=== PATIENT | male | born 1950 | race Caucasian/White ===

== ENCOUNTER 2018-11-03 05:11 | Inpatient (IN) | payer MEDICARE ==
[~2018-11-03] VITALS: Ht 190.5 cm; Wt 101.1 kg
[2018-11-03 05:31] LABS: BASOPHILS ABSOLUTE AUTO 0.09 K/mm3 (0.00-0.23); BASOPHILS PERCENT AUTO 1 % (0-2); EOSINOPHILS ABSOLUTE AUTO 0.29 K/mm3 (0.00-0.68); EOSINOPHILS PERCENT AUTO 3 % (0-6); Hematocrit 48.1 % (37.0-53.0); Hemoglobin 15.3 g/dL (13.5-17.5); IMMATURE GRAN ABSOLUTE AUTO 0.05 K/mm3 (0.00-0.10); IMMATURE GRAN PERCENT AUTO 0 % (0-1); LYMPHOCYTES ABSOLUTE AUTO 2.23 K/mm3 (0.84-5.20); LYMPHOCYTES PERCENT AUTO 20 % (21-46); MONOCYTES ABSOLUTE AUTO 1.36 K/mm3 (0.16-1.47); MONOCYTES PERCENT AUTO 12 % (4-13); Mean Corpuscular HGB Conc 31.8 g/dL (31.5-36.5); Mean Corpuscular Volume 79 fL (80-100); Mean Platelet Volume 10.2 fL (9.1-12.4); NEUTROPHILS ABSOLUTE AUTO 7.35 K/mm3 (1.96-9.15); NEUTROPHILS PERCENT AUTO 65 % (41-73); Platelet Count 226 K/mm3 (150-400); RDW Coefficient Variation 18.9 % (11.7-14.2); RDW Standard Deviation 51.4 fL (35.1-46.3); Red Blood Cell Count 6.11 M/mm3 (4.30-5.90); White Blood Cell Count 11.37 K/mm3 (4.00-11.30)
[2018-11-03 05:49] LABS: Alanine Aminotransfer (ALT/SGP 26 U/L (12-78); Albumin, Blood 3.4 g/dL (3.4-5.0); Albumin/Globulin Ratio 0.9 (0.8-1.8); Alk Phos 72 U/L (50-136); Anion Gap 7 mmol/L (6-16); Aspartate Aminotrans (AST/SGOT 29 U/L (12-37); Bilirubin, Total 1.4 mg/dL (0.1-1.0); Blood Urea Nitrogen 14 mg/dL (8-24); Bun/Creatinine Ratio 13.3 (12.0-20.0); CO2, Blood 25 mmol/L (21-32); Calcium, Blood 8.5 mg/dL (8.5-10.1); Chloride, Blood 109 mmol/L (98-108); Creatinine, Blood 1.05 mg/dL (0.60-1.20); Ethanol (Alcohol), Blood, Med <3 mg/dL; Globulin, Blood 3.9 g/dL (2.2-4.0); Glomerular Filtration Rate >60 (60-); Glucose, Blood 123 mg/dL (70-99); Potassium, Blood 3.9 mmol/L (3.5-5.5); Sodium, Blood 141 mmol/L (136-145); Total Protein, Blood 7.3 g/dL (6.4-8.2)
[2018-11-03 05:56] LABS: International Normalized Ratio 1.15
[2018-11-03 09:11] LABS: Source, Urine Clean Catch
[2018-11-03 09:19] LABS: Appearance, Urine Clear (Clear); Bilirubin, Urine Neg (Neg); Blood, Urine 2+ (Neg); Color, Urine Yellow (P-Yellow); Glucose Qualitative, Urine Neg (Neg); Ketones, Urine Neg (Neg); Leukocyte Esterase, Urine Neg (Neg); Nitrite, Urine Neg (Neg); Protein, Urine Neg (Neg); Urobilinogen, Urine NORM (Normal)
[2018-11-03 09:42] LABS: Salicylate <1.7 mg/dL (2.8-20.0); Troponin I 0.046 ng/mL (0.000-0.040)
[2018-11-03 09:45] LABS: U Amphetamine Screen Not Detected; U Barbituate Screen Not Detected; U Benzodiazapine Screen Not Detected; U Buprenorphine Screen Not Detected; U Cannabinoids Screen DETECTED; U Cocaine Screen Not Detected; U Methadone Screen Not Detected; U Methamphetamine Screen DETECTED; U Opiates Screen Not Detected; U Oxycodone Screen Not Detected; U Phencyclidine Screen Not Detected; U Propoxyphene Screen Not Detected
[2018-11-03 09:46] LABS: Thyroid Stimulating Hormone 0.766 uIU/mL (0.360-4.800)
[2018-11-03 09:49] LABS: Acetaminophen, Random <2.0 ug/mL (10.0-30.0)
[2018-11-03 10:11] LABS: White Blood Cells, Urine 0-2 /hpf (0-5)
[2018-11-03 10:12] LABS: Bacteria Rare /hpf; Mucus Mod (0-Heavy); Squamous Epithelial Cells Rare /hpf (Few)
[2018-11-03] MEDS ORDERED: ELIQUIS5 MG PO (10:30)
[2018-11-03] MEDS ORDERED: Lisinopril2.5 MG PO (10:30)
--- NOTE | 2018-11-03 10:58 | NUR ---
Echocardiogram performed using 0.50ml of Definity contrast.
--- NOTE | 2018-11-03 13:26 | NUR ---
1015 PT RECEIVED FROM ER. ALERT TO SELF AND PLACE, FOLLOWING COMMANDS AFTER REPETITIVE REQUESTS. PUPILS PERRLA. BILATERAL EQUAL ARTIST SUSPECT, NO DRIFT NOTED. BILATERAL LEG WEAKNESS NOTED, NO DEFICIT NOTED, NO DRIFT NOTED. NO FACIAL DROOP NOTED. PT APHASIC, HAVING DIFFICULTY FINDING WORDS. ANSWERING MOST YES / NO QUESTIONS CLEARLY, BUT BECOMES CONFUSED AT TIMES. AFIB ON TELEMETRY RATE 120-140s WITH ACTIVITY, RATE 80s-110s AT REST. LUNG SOUNDS DIMINISHED THROUGHOUT, DYSPNEA WITH ACTIVITY. EMOTIONS ARE VERY LABILE, CALM AND COOPERATIVE THEN BECOMES TEARFUL THEN BEGINS TO LAUGH. PT PIVOTED TO BEDSIDE COMMODE WITH 1 PERSON ASSIST. VOIDING IN URINAL. PT REPOSITIONING HIMSELF IN BED. BED ALARM ON, WILL CONTINUE TO MONITOR.
--- NOTE | 2018-11-03 14:25 | NUR ---
PT RESTING ON SIDE IN BED. EXTREMITIES SHAKING, GASPING FOR BREATH AT TIMES. PT NOT RESPONDING TO VERBAL STIMULI. VSS. PT MORE CLEAR AND NO MORE SHAKING NOTED. ATIVAN GIVEN IV. PT RESTING QUIETLY IN BED. DR. SINGER AT BEDSIDE, ORDER FOR BILL GTT RECEIVED.
--- NOTE | 2018-11-03 15:39 | NUR ---
RECEIVED REPORT AND ASSUMED CARE OF PATIENT. HE IS LYING IN BED AT THIS TIME, VERY SOMULENT AND LABILE. IV ON RIGHT HAND HAD RED LINE AND TENDERNESS ON ASSESSMENT. S/L LINE AND SWITCHED CARDIZEM AND NS TO LEFT AC SITE. WILL REASSESS LINE ON RT HAND LATER IN SHIFT TO DETERMINE IF IT SHOULD BE DISCONTINUED. WILL CONTINUE TO MONITOR CLOSELY AND FOLLOW ORDERS. CALL LIGHT WITHIN IN REACH, BED LOCKED, ARMED, AND LOW, HOB ELEVATED TO 30 DEGREES.
[2018-11-03 16:45] LABS: BASOPHILS PERCENT AUTO 1 % (0-2); EOSINOPHILS ABSOLUTE AUTO 0.28 K/mm3 (0.00-0.68); EOSINOPHILS PERCENT AUTO 2 % (0-6); Hematocrit 49.4 % (37.0-53.0); Hemoglobin 15.4 g/dL (13.5-17.5); IMMATURE GRAN ABSOLUTE AUTO 0.04 K/mm3 (0.00-0.10); IMMATURE GRAN PERCENT AUTO 0 % (0-1); LYMPHOCYTES ABSOLUTE AUTO 1.93 K/mm3 (0.84-5.20); LYMPHOCYTES PERCENT AUTO 16 % (21-46); MONOCYTES PERCENT AUTO 13 % (4-13); Mean Corpuscular HGB 24.7 pg (26.0-34.0); Mean Corpuscular HGB Conc 31.2 g/dL (31.5-36.5); Mean Corpuscular Volume 79 fL (80-100); Mean Platelet Volume 9.3 fL (9.1-12.4); NEUTROPHILS ABSOLUTE AUTO 8.01 K/mm3 (1.96-9.15); NEUTROPHILS PERCENT AUTO 68 % (41-73); Platelet Count 217 K/mm3 (150-400); RDW Coefficient Variation 19.3 % (11.7-14.2); RDW Standard Deviation 51.8 fL (35.1-46.3); Red Blood Cell Count 6.24 M/mm3 (4.30-5.90); White Blood Cell Count 11.86 K/mm3 (4.00-11.30)
--- NOTE | 2018-11-03 17:04 | NUR ---
EVENT: 1620 BED ALARM SOUNDED, THIS RN RAN INTO ROOM TO SEE PATIENT CLIMBING OUT OF BED BETWEEN THE UPPER AND LOWER BEDRAILS. PT STOOD, THIS RN ARRIVED TO PT SIDE HE WAS WOBBLING, HELD UP AND PULLED NEARBY CHAIR TO SIT PATIENT INTO. ASSESSED RESPONSIVENESS, PT IS UNABLE TO MEANINGFULLY RESPOND AT THIS TIME. VS TAKEN AND SENT THROUGH CAPSULE, PT HAD SOME EMESIS AT THIS TIME. DR. SINGER CALLED TO BEDSIDE, HE ORDERED STAT BLOODWORK ENTERED BY ENGLISH DRAWER CHAVO. ADDITIONALLY DEDE ORDERED FOR PT SAFETY, USED RON LIFT TO GET PATIENT SAFELY BACK TO BED, REASSESSED VS AND PT HAS SLIGHT TEMP, APPLIED COOL CLOTH AND WILL CONTINUE TO MONITOR.
--- NOTE | 2018-11-03 17:08 | NUR ---
CALLED [facility] [employer] PER PT NOD OF APPROVAL TO CONTACT THEM FOR INFORMATION FOR MRI QUESTIONNAIRE. FILLED OUT AND FAXED MRI SCREENING FORM.
[2018-11-03 17:12] LABS: Alanine Aminotransfer (ALT/SGP 27 U/L (12-78); Albumin, Blood 3.6 g/dL (3.4-5.0); Albumin/Globulin Ratio 0.9 (0.8-1.8); Alk Phos 76 U/L (50-136); Anion Gap 3 mmol/L (6-16); Aspartate Aminotrans (AST/SGOT 25 U/L (12-37); Bilirubin, Total 1.8 mg/dL (0.1-1.0); Blood Urea Nitrogen 11 mg/dL (8-24); Bun/Creatinine Ratio 11.3 (12.0-20.0); CO2, Blood 27 mmol/L (21-32); Calcium, Blood 8.8 mg/dL (8.5-10.1); Chloride, Blood 108 mmol/L (98-108); Creatinine, Blood 0.97 mg/dL (0.60-1.20); Globulin, Blood 3.9 g/dL (2.2-4.0); Glomerular Filtration Rate >60 (60-); Glucose, Blood 104 mg/dL (70-99); Potassium, Blood 3.6 mmol/L (3.5-5.5); Sodium, Blood 138 mmol/L (136-145); Total Protein, Blood 7.5 g/dL (6.4-8.2)
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
--- NOTE | 2018-11-03 23:55 | NUR ---
AGRESSIVE BEHAVIOR PATIENT BECAME AGRESSIVE WHILE STAFF WERE TRYING TO CHANGE HIM. THIS RN, STUDENT NURSE SANDRITA, VERONIQUE MCFADDEN AND RUBINA ZAMBRANO RN IN ROOM. AT APPROX 2320 PATIENT BECOME VERY COMBATIVE AND REACHED OUT AND GRABBED STAFF WITH INTENT TO HARM THEM. PATIENT HIT THE SIDE RAIL WITH IS LEFT FIST IN ATTEMPT TO SWING AT STAFF. PATIENT PULLED AND SNAPPED IV TUBING. PATIENT REFUSED VS AND CARE DURING THIS TIME. SCOT CANO CALLED; WITH SECURITY PRESENT THIS RN AND PRIMARY RN WERE ABLE TO OBTAIN VS AND ADMINISTER MEDICATIONS PER EMAR. PATIENT CONTINUED TO REFUSE TO BE CHANGED (URINE NOTED IN BEDDING). WILL ADDRESS PATIENT SKIN CARE AND HYGIENE NEEDS FURTHER WHEN PATIENT CALMS. PRIMARY RN TO NOTIFY MD. NURSING CALCINER OPERATOR HELPER NOTIFIED. PATIENT REMAINS IN POSTEY VEST T/O INTERACTION. WILL CONTINUE TO MONITOR.
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
[2018-11-04 05:42] LABS: BASOPHILS ABSOLUTE AUTO 0.06 K/mm3 (0.00-0.23); BASOPHILS PERCENT AUTO 1 % (0-2); EOSINOPHILS ABSOLUTE AUTO 0.21 K/mm3 (0.00-0.68); EOSINOPHILS PERCENT AUTO 2 % (0-6); Hematocrit 44.8 % (37.0-53.0); Hemoglobin 14.1 g/dL (13.5-17.5); IMMATURE GRAN ABSOLUTE AUTO 0.06 K/mm3 (0.00-0.10); IMMATURE GRAN PERCENT AUTO 1 % (0-1); LYMPHOCYTES PERCENT AUTO 12 % (21-46); MONOCYTES ABSOLUTE AUTO 1.71 K/mm3 (0.16-1.47); MONOCYTES PERCENT AUTO 15 % (4-13); Mean Corpuscular HGB 24.9 pg (26.0-34.0); Mean Corpuscular HGB Conc 31.5 g/dL (31.5-36.5); Mean Corpuscular Volume 79 fL (80-100); Mean Platelet Volume 9.8 fL (9.1-12.4); NEUTROPHILS ABSOLUTE AUTO 8.32 K/mm3 (1.96-9.15); NEUTROPHILS PERCENT AUTO 71 % (41-73); Platelet Count 217 K/mm3 (150-400); RDW Coefficient Variation 18.6 % (11.7-14.2); RDW Standard Deviation 51.9 fL (35.1-46.3); Red Blood Cell Count 5.66 M/mm3 (4.30-5.90); White Blood Cell Count 11.76 K/mm3 (4.00-11.30)
[2018-11-04 06:01] LABS: Alanine Aminotransfer (ALT/SGP 20 U/L (12-78); Albumin, Blood 3.2 g/dL (3.4-5.0); Albumin/Globulin Ratio 0.9 (0.8-1.8); Alk Phos 71 U/L (50-136); Anion Gap 7 mmol/L (6-16); Aspartate Aminotrans (AST/SGOT 21 U/L (12-37); Bilirubin, Total 1.9 mg/dL (0.1-1.0); Blood Urea Nitrogen 10 mg/dL (8-24); Bun/Creatinine Ratio 10.6 (12.0-20.0); CHOL/HDL RATIO 3.5; CO2, Blood 26 mmol/L (21-32); Calcium, Blood 8.3 mg/dL (8.5-10.1); Chloride, Blood 108 mmol/L (98-108); Cholesterol 98 mg/dL (50-200); Creatinine, Blood 0.95 mg/dL (0.60-1.20); Globulin, Blood 3.5 g/dL (2.2-4.0); Glomerular Filtration Rate >60 (60-); Glucose, Blood 101 mg/dL (70-99); HDL Cholesterol 28 mg/dL (>39); LDL/HDL RATIO 1.9; Low Density Lipoprotein Chol 53 mg/dL (0-110); Potassium, Blood 3.6 mmol/L (3.5-5.5); Sodium, Blood 141 mmol/L (136-145); Total Protein, Blood 6.7 g/dL (6.4-8.2); Triglycerides 86 mg/dL (30-160); Very Low Density Lipoprot Chol 17 mg/dL (6-32)
--- NOTE | 2018-11-04 06:12 | NUR ---
ASSUMED CARE APPROXIMATELY 1900 FROM JEANNA GAONA; PT WAS QUIET AT START OF SHIFT AND TOLERATED INTERVENTIONS WELL; REPOSITION AND CHECKED; BED ALARM ON; LINEN AND BRIEF CHANGE TOLERATED; PT GREW INCREASINGLY AGITATED; APPROXIMATELY 2300 ATTEMPTED LINEN CHANGE W/ PCU TECH; PT SAID "NO"; PT WAS ADVISED HE WAS SATURATED W/ URINE AND NEEDED CHANGED; JEANNA CESPEDES ATTEMPTED CONVERSATION W/ PT AND CHARGE NURSE WAS CALLED; PT GRABBED STAFF AND SWUNG AT STAFF; STAFF STETHOSCOPE PULLED AND ARM GRABBED; SCOT GARCIA CALLED; SECURITY AT BEDSIDE; BLOOD ON FLOOR FROM PT PULLING IV LINES; PT REFUSED CARE REMAINDER OF SHIFT; BED ALARM ON; BED IN LOWEST POSITION; CALL LIGHT WITHIN REACH; WILL CONTINUE TO MONITOR AND ASSESS UNTIL HANDOFF TO DAY SHIFT RN.
--- NOTE | 2018-11-04 10:32 | NUR ---
NURSING PCU DAYSHIFT: Assumed care of pt at approx 0700. Pt resting comfortably t/o the a.m., bonnie vest in place, tolerating well. Pt able to follow some commands, occassionally answers yes/no questions appropriately, unable to engage in conversation. Skin appears intact w/scattered bruising noted. Tele in place, afib, HTN prior to a.m. meds, no noted edema. L/S cta t/o, O2 sat stable on RA, no noted cough or dyspnea. Abd SNT, BT+, incontinent of urine. PIV x2, NS infusing at 75cc/hr and diltiazem at 5cc/hr. No s/s of acute distress at this time. Seen by PMD, new d/o received. Tech at bedside for abd U/S, ST at bedside for f/u evaluation. No acute needs identified, cont to monitor for any changes.
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
--- NOTE | 2018-11-04 18:16 | NUR ---
NURSING PCU DAYSHIFT SUMMARY: Cardiac and respiratory status changed t/o shift. Pt remains in tough cuffs w/bonnie vest in place at this time. Ativan administered as ordered, pt resting at this time. Frequent rounding required. Security standby recommended when removal of restraints are required to provide care. Cont to monitor for any changes.
[2018-11-05 04:23] LABS: BASOPHILS ABSOLUTE AUTO 0.08 K/mm3 (0.00-0.23); BASOPHILS PERCENT AUTO 1 % (0-2); EOSINOPHILS ABSOLUTE AUTO 0.35 K/mm3 (0.00-0.68); EOSINOPHILS PERCENT AUTO 3 % (0-6); Hematocrit 46.1 % (37.0-53.0); Hemoglobin 14.5 g/dL (13.5-17.5); IMMATURE GRAN ABSOLUTE AUTO 0.03 K/mm3 (0.00-0.10); IMMATURE GRAN PERCENT AUTO 0 % (0-1); LYMPHOCYTES ABSOLUTE AUTO 1.41 K/mm3 (0.84-5.20); LYMPHOCYTES PERCENT AUTO 14 % (21-46); MONOCYTES ABSOLUTE AUTO 1.65 K/mm3 (0.16-1.47); MONOCYTES PERCENT AUTO 16 % (4-13); Mean Corpuscular HGB Conc 31.5 g/dL (31.5-36.5); Mean Corpuscular Volume 79 fL (80-100); Mean Platelet Volume 9.6 fL (9.1-12.4); NEUTROPHILS ABSOLUTE AUTO 6.94 K/mm3 (1.96-9.15); NEUTROPHILS PERCENT AUTO 66 % (41-73); Platelet Count 220 K/mm3 (150-400); RDW Coefficient Variation 18.8 % (11.7-14.2); RDW Standard Deviation 52.2 fL (35.1-46.3); Red Blood Cell Count 5.81 M/mm3 (4.30-5.90); White Blood Cell Count 10.46 K/mm3 (4.00-11.30)
[2018-11-05 04:47] LABS: Alanine Aminotransfer (ALT/SGP 18 U/L (12-78); Albumin, Blood 3.1 g/dL (3.4-5.0); Albumin/Globulin Ratio 0.8 (0.8-1.8); Alk Phos 66 U/L (50-136); Anion Gap 9 mmol/L (6-16); Aspartate Aminotrans (AST/SGOT 13 U/L (12-37); Bilirubin, Total 2.1 mg/dL (0.1-1.0); Blood Urea Nitrogen 11 mg/dL (8-24); Bun/Creatinine Ratio 11.9 (12.0-20.0); CO2, Blood 25 mmol/L (21-32); Calcium, Blood 8.4 mg/dL (8.5-10.1); Chloride, Blood 107 mmol/L (98-108); Creatinine, Blood 0.93 mg/dL (0.60-1.20); Globulin, Blood 3.8 g/dL (2.2-4.0); Glomerular Filtration Rate >60 (60-); Glucose, Blood 99 mg/dL (70-99); Potassium, Blood 3.3 mmol/L (3.5-5.5); Sodium, Blood 141 mmol/L (136-145); Total Protein, Blood 6.9 g/dL (6.4-8.2)
[2018-11-05 06:10] LABS: HBSAG SCREEN Negative (Negative); HEP A AB, IGM Negative (Negative); HEP B CORE AB, IGM Negative (Negative); HEP C VIRUS AB <0.1 (0.0-0.9)
--- NOTE | 2018-11-05 07:24 | NUR ---
SHIFT SUMMARY PATIENT OCCATIONALLY WOULD NOD/SHAKE HEAD IN RESPONSE TO A YES NO QUESTIONS BUT MOST OF THE TIME PATIENT WOULD NOT ANSWER AND JUST STARE AT STAFF WHEN ASKED QUESTIONS. PATIENT WAS ABLE TO FOLLOW SOME SIMPLY INSTRUCTIONS. PATIENT DID NOT VERBALIZE MUCH TO STAFF EVEN WHEN AWAKE. PATIENT GIVEN ATIVAN X 1 FOR AGITATION. PATIENT THEN APPEARED TO BE ABLE TO FALL ASLEEP AND APPEARED TO SLEEP WELL THROUGHOUT MOST OF THE NIGHT. IV FLUIDS RUNNING PER EMAR, CARDIZEM GTT RUNNING AT 5 MLS. PATIENT'S HEART RATE IN THE 90'S-LOW 100'S PER PIN MAKER. VITAL SIGNS CHARTED. REPORT GIVEN TO ONCOMING RN.
--- NOTE | 2018-11-05 08:26 | NUR ---
NURSING PCU DAYSHIFT: Assumed care of pt at approx 0700. Follows some commands, will occassionally answer basic yes/no questions appropriately, noted expressive aphasia. Skin is fairly intact w/scattered bruising noted to UE's. Denies any pain, CNVI 0. B/L tough cuff wrist restraints in place along w/bonnie vest. Tele in place, afib w/HR 90's, HTN prior to a.m. meds, no noted edema. L/S fairly cta t/o, O2 sat stable on RA, no noted cough or dyspnea. Abd nontender, BT hypoactive, incontinent of urine. PIV x1, NS infusing at 75cc/hr w/diltiazem gtt initially infusing at 5cc/hr. Cariologist at bedside for assessment, new d/o received. Diltiazem gtt discontinued as per order. Telephone update to be provided to family. No s/s of acute distress at this time, cont to monitor for any changes.
--- NOTE | 2018-11-05 16:23 | NUR ---
NURSING PCU DAYSHIFT SUMMARY: Pt has shown mild improvement in able to express needs. When given the option of chocolate or vanilla pudding, pt was able to verbalize "vanilla" which pt was not able to do previous day. After care was provided for pt, pt was slowly able to say "thank you" before this RN left room. No significant aggression noted at this time though does remain forgetful, impulsive, and pulls at lines. Frequent restraint breaks and ROM provided w/staff assistance and observation. Seen by psych consult, no new d/o received. Transporting to imaging at this time for CT and CTA. Worked w/P.T. this afternoon. Experienced dyspnea and clutched chest after minimal exertion. HR increased to 120's, returned to 90's at rest. Telephone update provided to ex-, questions answered. No current needs identified. Call light in reach though frequent rounding required. Cont to monitor until rpt is given to NOC RN.
[2018-11-05 21:26] LABS: U Amphetamine Screen DETECTED; U Barbituate Screen Not Detected; U Benzodiazapine Screen DETECTED; U Buprenorphine Screen Not Detected; U Cannabinoids Screen DETECTED; U Cocaine Screen Not Detected; U Methadone Screen Not Detected; U Methamphetamine Screen DETECTED; U Opiates Screen Not Detected; U Phencyclidine Screen Not Detected
[2018-11-05 21:27] LABS: U Oxycodone Screen Not Detected; U Propoxyphene Screen Not Detected
[2018-11-06 04:15] LABS: BASOPHILS ABSOLUTE AUTO 0.08 K/mm3 (0.00-0.23); BASOPHILS PERCENT AUTO 1 % (0-2); EOSINOPHILS ABSOLUTE AUTO 0.47 K/mm3 (0.00-0.68); EOSINOPHILS PERCENT AUTO 4 % (0-6); Hematocrit 46.1 % (37.0-53.0); Hemoglobin 14.6 g/dL (13.5-17.5); IMMATURE GRAN ABSOLUTE AUTO 0.04 K/mm3 (0.00-0.10); IMMATURE GRAN PERCENT AUTO 0 % (0-1); LYMPHOCYTES ABSOLUTE AUTO 1.71 K/mm3 (0.84-5.20); LYMPHOCYTES PERCENT AUTO 15 % (21-46); MONOCYTES ABSOLUTE AUTO 1.61 K/mm3 (0.16-1.47); MONOCYTES PERCENT AUTO 14 % (4-13); Mean Corpuscular HGB 24.9 pg (26.0-34.0); Mean Corpuscular HGB Conc 31.7 g/dL (31.5-36.5); Mean Corpuscular Volume 79 fL (80-100); Mean Platelet Volume 9.8 fL (9.1-12.4); NEUTROPHILS ABSOLUTE AUTO 7.83 K/mm3 (1.96-9.15); NEUTROPHILS PERCENT AUTO 67 % (41-73); Platelet Count 243 K/mm3 (150-400); RDW Coefficient Variation 19.2 % (11.7-14.2); RDW Standard Deviation 52.4 fL (35.1-46.3); Red Blood Cell Count 5.86 M/mm3 (4.30-5.90); White Blood Cell Count 11.74 K/mm3 (4.00-11.30)
[2018-11-06 04:34] LABS: Alanine Aminotransfer (ALT/SGP 21 U/L (12-78); Albumin, Blood 3.1 g/dL (3.4-5.0); Albumin/Globulin Ratio 0.8 (0.8-1.8); Alk Phos 64 U/L (50-136); Anion Gap 8 mmol/L (6-16); Aspartate Aminotrans (AST/SGOT 23 U/L (12-37); Bilirubin, Total 1.6 mg/dL (0.1-1.0); Blood Urea Nitrogen 12 mg/dL (8-24); Bun/Creatinine Ratio 13.4 (12.0-20.0); CO2, Blood 25 mmol/L (21-32); Calcium, Blood 8.6 mg/dL (8.5-10.1); Chloride, Blood 108 mmol/L (98-108); Glomerular Filtration Rate >60 (60-); Glucose, Blood 97 mg/dL (70-99); Potassium, Blood 3.6 mmol/L (3.5-5.5); Sodium, Blood 141 mmol/L (136-145); Total Protein, Blood 7.1 g/dL (6.4-8.2)
--- NOTE | 2018-11-06 07:35 | NUR ---
SHIFT SUMMARY PATIENT PLEASENT THROUGHOUT MOST OF THE NIGHT, HOWEVER PATIENT DID HAVE SEVERAL EPISODES OF INCREASING ANXIETY AND AGITATION. PATIENT MEDICATED FOR THESE EPISODES WITH ATIVAN. PATIENT REMAINS IN DEDE VEST AND BILATERAL TOUGH CUFF WRIST RESTRAINTS DUE TO PATIENT BECOMING VERY AGITATED QUICKLY. PATIENT HAS HAD SEVERAL CODE GARCIA'S CALLED ON HIM AND HAS NEEDED SECURITY TO COME AND ASSIST STAFF WITH CARE FREQUENTLY. PATIENT APPEARED TO SLEEP ON AND OFF THROUGHOUT THE NIGHT. VITAL SIGNS CHARTED. REPORT GIVEN TO ONCOMING RN.
--- NOTE | 2018-11-06 08:09 | NUR ---
AM NOTE. ASSUMED CARE OF PT APROX 0700, PT IS A&Ox1, PT IS ABLE TO ANSWER SOME YES OR NO QUESTIONS, WHEN ASKED IF HE KNEW WHERE HE WAS HE SAID "[facility]." PT WAS UNABLE TO STATED HIS NAME/BIRTHDAY, DATE OR SITUATION. PT IS IN AFIB IN THE 100'S-130'S. PT IS CURRENTLY IN A DEDE VEST AND TUFF CUFFS. TELE INTACT AFIB IN THE 100'S-130'S PT'S BP 157/125. PT HAS TRACE EDEMA TO HIS BLE. L/S CLEAR T/O, PT IS ON RA WITH O2 SATS >92%. BT PRESENT AND HYPERACTIVE, ABD IS SOFT AND NONTENDER TO PALP. CALL LIGHT IN REACH, BED IS LOCKED WITH BED ALARM ON, W/DEDE VEST AND TUFF CUFFS.
--- NOTE | 2018-11-06 08:30 | NUR ---
PT UPDATE... TUFF CUFFS WERE REMOVED DUE TO PT NEEDING BED CHANGE/BED BATH. PT IS VERY CALM AND COOPERATIVE AT THIS TIME, WILL REMOVE THE CUFFS FOR NOW.
--- NOTE | 2018-11-06 17:24 | NUR ---
SHIFT SUMMARY. NO ACUTE CHANGES NOTED THIS SHIFT. PT HAS NOT BEEN IN TUFF CUFFS SINCE THE APROX 0800 TODAY. PT STILL IN DEDE VEST, PT HAS ATTEMPTED TO CLIMB OUT OF BED SEVERAL TIMES BUT HAS NOT BEEN AGGRESIVE THIS SHIFT. PT HAS SLEPT MOST OF THIS SHIFT. PT'S VS HAVE BEEN STABLE, APPEARES TO BE COMFORTABLE AND NOT IN ANY PAIN OR DISTRESS. CALL LIGHT IN REACH, BED IS LOCKED AND LOW W/BED ALARM ON AND DEDE VEST. WILL CONTINUE TO MONITOR UNTIL REPORT IS GIVEN TO ONCOMING RN.
--- NOTE | 2018-11-06 20:07 | NUR ---
CARE ASSUMPTION PT ALERT, MAKES EYE CONTACT, BUT NOT ANSWERING Q'S AT THIS TIME OR FOLLOWING INSTRUCTIONS. PT IN DEDE VEST, REPOSITIONING SELF IN BED. SEIZURE PRECAUTION PADS ON BED RAILS X2. BED ALARM ON. VSS. NO S/S OF PAIN OR DISCOMFORT. ATTENDS IN PLACE, C/D/I. WILL CONTINUE TO MONITOR AND PROVIDE CARE.
[2018-11-07 03:47] LABS: BASOPHILS ABSOLUTE AUTO 0.07 K/mm3 (0.00-0.23); BASOPHILS PERCENT AUTO 1 % (0-2); EOSINOPHILS ABSOLUTE AUTO 0.45 K/mm3 (0.00-0.68); EOSINOPHILS PERCENT AUTO 5 % (0-6); Hematocrit 47.2 % (37.0-53.0); Hemoglobin 14.8 g/dL (13.5-17.5); IMMATURE GRAN ABSOLUTE AUTO 0.05 K/mm3 (0.00-0.10); IMMATURE GRAN PERCENT AUTO 1 % (0-1); LYMPHOCYTES ABSOLUTE AUTO 1.76 K/mm3 (0.84-5.20); LYMPHOCYTES PERCENT AUTO 18 % (21-46); MONOCYTES ABSOLUTE AUTO 1.33 K/mm3 (0.16-1.47); MONOCYTES PERCENT AUTO 13 % (4-13); Mean Corpuscular HGB Conc 31.4 g/dL (31.5-36.5); Mean Corpuscular Volume 80 fL (80-100); Mean Platelet Volume 9.5 fL (9.1-12.4); NEUTROPHILS ABSOLUTE AUTO 6.26 K/mm3 (1.96-9.15); NEUTROPHILS PERCENT AUTO 63 % (41-73); Platelet Count 292 K/mm3 (150-400); RDW Coefficient Variation 19.1 % (11.7-14.2); RDW Standard Deviation 53.7 fL (35.1-46.3); Red Blood Cell Count 5.93 M/mm3 (4.30-5.90); White Blood Cell Count 9.92 K/mm3 (4.00-11.30)
[2018-11-07 04:03] LABS: Alanine Aminotransfer (ALT/SGP 18 U/L (12-78); Albumin/Globulin Ratio 0.8 (0.8-1.8); Alk Phos 62 U/L (50-136); Anion Gap 6 mmol/L (6-16); Aspartate Aminotrans (AST/SGOT 18 U/L (12-37); Bilirubin, Total 1.4 mg/dL (0.1-1.0); Blood Urea Nitrogen 15 mg/dL (8-24); Bun/Creatinine Ratio 14.7 (12.0-20.0); CO2, Blood 25 mmol/L (21-32); Calcium, Blood 8.4 mg/dL (8.5-10.1); Chloride, Blood 109 mmol/L (98-108); Creatinine, Blood 1.02 mg/dL (0.60-1.20); Globulin, Blood 3.7 g/dL (2.2-4.0); Glomerular Filtration Rate >60 (60-); Glucose, Blood 94 mg/dL (70-99); Potassium, Blood 3.9 mmol/L (3.5-5.5); Sodium, Blood 140 mmol/L (136-145); Total Protein, Blood 6.7 g/dL (6.4-8.2)
--- NOTE | 2018-11-07 05:18 | NUR ---
SHIFT SUMMARY PT ALERT, NOT COMMUNICATING OR FOLLOWING COMMANDS UPON CARE ASSUMPTION. PT THEN ANSWERING "YES" TO ALL Q'S, THOUGH NOT ANSWERING Y/N Q'S APPROPRIATELY. PT THEN FOLLOWING SIMPLE COMMANDS & COOPERATING W/ ASSESSMENTS & CARE WHEN WOKEN, OTHERWISE PT SLEEPING MAJORITY OF SHIFT. PT IN BED W/ CALL LIGHT IN REACH. DEDE VEST ON, REPOSITIONING SELF IN BED. ATTENDS IN PLACE W/ PRN KIA CARE/ATTENDS CHANGES PROVIDED. VSS. WILL CONTINUE TO MONITOR AND PROVIDE CARE UNTIL REPORT OFF TO DAY SHIFT RN.
--- NOTE | 2018-11-07 10:46 | NUR ---
AM NOTE. ASSUMED CARE OF PT APROX 0700, PT IS A&O TO HIMSELF. PT'S ABILITY TO UNDERSTAND QUESTIONS HAS IMPROVED FROM YESTERDAY, PT IS ABLE TO ANSWER YES OR NO BUT UNABLE TO EXPRESS HIMSELF, THIS HAS CAUSED INCREASED FRUSTRATION TO THE PT, PT WAS VERY EMOTIONAL AND CRYING ABOUT NOT BEING ABLE TO MAKE HIS NEEDS KNOWN THIS AM. COMMUNICATION BOARD WAS OBTAINED FOR THE PT TO USE, PT IS CURRENTLY SLEEPING WILL SEE IF PT IS ABLE TO BENEFIT FROM THIS WHEN HE WAKES UP. TELE INTACT, AFIB W/BBB IN THE 110-130'S. PT'S BP 150/113. NO EDEMA NOTED ON ASSESSMENT. L/S CLEAR T/O PT IS ON RA RR 18 EVEN AND UNLABORED. BT PRESENT AND HYPERACTIVE, ABD IS SOFT AND NONTENDER TO PALP. CALL LIGHT IN REACH, BED ALARM ON WILL CONTINUE TO MONITOR.
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
--- NOTE | 2018-11-07 18:34 | NUR ---
SHIFT SUMMARY. NO ACUTE CHANGES NOTED SINCE PREVIOUS NOTES. PT SLEPT VERY WELL FOR SEVERAL HOURS AFTER THE EPISODE. PT HAS SINCE WOKEN UP AND IS IN A BETTER MOOD, PT IS SMILING AND ABLE TO SIT UP AND EAT DINNER. PT'S VS HAVE BEEN STABLE. PT DOES NOT APPEARE TO BE IN ANY TYPE OF DISTRESS. PT HAS NOT BEEN IN RESTRAINTS ALL DAY. CALL LIGHT IN REACH, BED IS LOCKED AND LOW WITH BED ALARM ON, WILL CONTINUE TO MONITOR UNTIL REPORT IS GIVEN TO ONCOMING RN.
--- NOTE | 2018-11-08 04:45 | NUR ---
SHIFT SUMMARY PT ALERT, ANSWERING "YES" TO SOME QUESTIONS, COOPERATING W/ CARE. NO EVENTS OVERNIGHT. VSS. NO NEED FOR RESTRAINTS. PT IN BED W/ CALL LIGHT IN REACH. BED ALARM ON. WILL CONTINUE TO MONITOR AND PROVIDE CARE UNTIL REPORT OFF TO DAY SHIFT RN.
--- NOTE | 2018-11-08 09:49 | NUR ---
AM NOTE. ASSUMED CARE OF PT APROX 0700, PT IS A&O TO SELF AT THIS TIME, PT IS ABLE TO ANSWER YES OR NO QUESTIONS. PT IS SMILING AND HAPPY AT THIS TIME. PT'S AFIB IS CONTROLLED IN THE 70'S-90'S AT THIS TIME. TELE INTACT, AFIB W/BBB IN THE 70'S-90'S. PT'S BP 144/99. NO EDEMA NOTED ON ASSESSMENT. L/S CLEAR T/O. BT PRESENT AND HYPERACTIVE, ABD IS SOFT AND NONTENDER TO PALP. PT HAS NOT HAD A BM SINCE ADMIT ON 11/03, BOWEL CARE STARTED. PT'S BED ALARM IS ON AND ATTENDS IN PLACE, WILL CONTINUE TO MONITOR.
--- NOTE | 2018-11-08 18:05 | NUR ---
SHIFT SUMMARY. NO ACUTE CHANGES NOTED THIS SHIFT. PT'S VS HAVE BEEN STABLE. PT DID HAVE ONE EPISODE OF CRYING AND BEING VERY EMOTIONAL, THIS LASTED APROX 30 MINS AND THE PT FELL ASLEEP. PT'S MENTATION HAS IMPROVED SLIGHTLY SINCE YESTERDAY WELL. CALL LIGHT IN REACH, BED IS LOCKED WITH BED ALARM ON, WILL CONTINUE TO MONITOR UNTIL REPORT IS GIVEN TO ONCOMING RN.
--- NOTE | 2018-11-08 20:45 | NUR ---
SEIZURE LIKE ACTIVITY PT ALERT, ANSWERING Y/N QUESTIONS. PT ENGAGING W/ THIS RN AND PASSENGER SCREENER BY MAKING EYE CONTACT, LAUGHING AND ANSWERING Y/N WHILE CLEANING AND CHANGING PT'S ATTENDS WHEN PT SUDDENLY STARTED BLOWING AIR OUT OF MOUTH CAUSING LIPS TO FLAP MAKING NOISE W/OUT ANY SALIVA/FOAMING AND THEN APPEARED TO BE GASPING. PT'S BODY TENSED AND BEGAN MAKING SLIGHT JERKS. PT'S EYES WERE CLOSED AND PT DID NOT ANSWER TO STAFF DURING THIS EVENT. MONITOR SHOWED INCREASE IN HR FROM AFIB 90'S TO AFIB 120-130 W/ RETURN TO 90'S IMMEDIATELY AFTER. SPO2 > 95% ON RA. INCIDENT LASTED APPROX 15 SECONDS IN WHICH PT THEN AWOKE FROM INCIDENT CRYING. PT TOOK THIS NURSE'S HAND AND TIME WAS SPENT COMFORTING PT. PT NOW RESTING IN BED. WHEN ASKED PT IF OKAY, PT RESPONDING BY NODDING HEAD "YES". WILL CONTINUE TO MONITOR AND PROVIDE CARE. SEIZURE PADS IN PLACE ON SIDE RAILS X2. BED ALARM ON.
[2018-11-09 01:16] LABS: BASOPHILS ABSOLUTE AUTO 0.07 K/mm3 (0.00-0.23); BASOPHILS PERCENT AUTO 1 % (0-2); EOSINOPHILS ABSOLUTE AUTO 0.38 K/mm3 (0.00-0.68); EOSINOPHILS PERCENT AUTO 4 % (0-6); Hematocrit 44.6 % (37.0-53.0); Hemoglobin 13.9 g/dL (13.5-17.5); IMMATURE GRAN ABSOLUTE AUTO 0.04 K/mm3 (0.00-0.10); IMMATURE GRAN PERCENT AUTO 0 % (0-1); LYMPHOCYTES ABSOLUTE AUTO 1.49 K/mm3 (0.84-5.20); LYMPHOCYTES PERCENT AUTO 16 % (21-46); MONOCYTES ABSOLUTE AUTO 1.02 K/mm3 (0.16-1.47); MONOCYTES PERCENT AUTO 11 % (4-13); Mean Corpuscular HGB 24.9 pg (26.0-34.0); Mean Corpuscular HGB Conc 31.2 g/dL (31.5-36.5); Mean Corpuscular Volume 80 fL (80-100); Mean Platelet Volume 9.6 fL (9.1-12.4); NEUTROPHILS ABSOLUTE AUTO 6.38 K/mm3 (1.96-9.15); NEUTROPHILS PERCENT AUTO 68 % (41-73); Platelet Count 284 K/mm3 (150-400); RDW Coefficient Variation 18.8 % (11.7-14.2); RDW Standard Deviation 53.5 fL (35.1-46.3); Red Blood Cell Count 5.58 M/mm3 (4.30-5.90); White Blood Cell Count 9.38 K/mm3 (4.00-11.30)
[2018-11-09 01:33] LABS: Alanine Aminotransfer (ALT/SGP 21 U/L (12-78); Albumin, Blood 3.1 g/dL (3.4-5.0); Albumin/Globulin Ratio 0.8 (0.8-1.8); Alk Phos 58 U/L (50-136); Anion Gap 7 mmol/L (6-16); Aspartate Aminotrans (AST/SGOT 18 U/L (12-37); Bilirubin, Total 0.8 mg/dL (0.1-1.0); Blood Urea Nitrogen 19 mg/dL (8-24); Bun/Creatinine Ratio 17.4 (12.0-20.0); CO2, Blood 24 mmol/L (21-32); Calcium, Blood 8.7 mg/dL (8.5-10.1); Chloride, Blood 111 mmol/L (98-108); Creatinine, Blood 1.09 mg/dL (0.60-1.20); Globulin, Blood 3.7 g/dL (2.2-4.0); Glomerular Filtration Rate >60 (60-); Glucose, Blood 98 mg/dL (70-99); Sodium, Blood 142 mmol/L (136-145); Total Protein, Blood 6.8 g/dL (6.4-8.2)
--- NOTE | 2018-11-09 02:02 | NUR ---
FURTHER SEIZURE LIKE ACTIVITY / CALL TO AT APPROX 0015, PT UP IN ROOM W/ CHARGE NURSE, RELISH BLENDER AND NURSE PRESENT. PT MUMBLING, CLOSELY ASSESSING MEDICAL EQUIPMENT AND THE WALL IN THE ROOM IN WHICH PT APPEARED TO BE LOOKING FOR SOMETHING. STAFF GENTLY COAXING PT TO RETURN TO BED, PT RESPONSE W/ HOLDING UP INDEX FINGER TO STAFF & CONTINUING TO ASSESS THINGS IN ROOM W/ GREAT FOCUS. PT THEN BECAME WEAK WHILE STANDING AT BEDSIDE, ASSISTED TO SIT THEN LAY IN BED BY STAFF. PT SKIN TONE BECAME PALER THAN NORMAL, HR AND BP INCREASED, W/ HR 110-130, SYS BP 160'S, AND PT HAD POSSIBLY 3 OR 4 SEIZURE LIKE EVENTS NO MORE THAN 30 SECONDS EACH IN WHICH PT'S EYES WERE OPEN AND FIXED, PT STOPPED BREATHING AND BODY WAS TENSE. PULSE REMAINED PRESENT T/O EVENTS. PT THEN BEGAN CLUTCHING FIST TO L CHEST INTENSELY, PT NODDING "YES" TO HAVING CHEST PAIN. CALL TO MD CELIS W/ ORDERS FOR EKG, SET OF 2 TROPONINS, AND PRN NONVIOLENT RESTRAINTS. PT GIVEN ATIVAN AND HYDRALAZINE PER EMAR. WILL CONTINUE TO MONITOR AND PROVIDE CARE.
--- NOTE | 2018-11-09 05:35 | NUR ---
SHIFT SUMMARY PT ALERT, ENGAGING MORE W/ STAFF, ANSWERING Y/N QUESTIONS & SAYING SOME WORDS. 2 SEPARATE EVENTS OF SEIZURE LIKE ACTIVITY THIS SHIFT, SEE 2 PREVIOUS NOTES. OTHERWISE VSS. MONITOR SHOWS AFIB, HR 90-110 W/ HR INCREASE UP TO 130 DURING SEIZURE LIKE EVENTS. LUNG SOUNDS CLEAR, SPO2 > 92% ON RA. PT INCONTINENT, REQUIRING MULTIPLE ATTENDS AND LINEN CHANGES. PT IN BED W/ CALL LIGHT IN REACH. SEIZURE PADS ON SIDE RAILS X2. ORDER FOR NONVIOLENT RESTRAINTS OBTAINED FROM MD CELIS THIS SHIFT FOR PT SAFETY/PROTECTION OF CORDS AND LINES, RESTRAINTS NOT PLACED BUT IN ROOM IF NEEDED. WILL CONTINUE TO MONITOR AND PROVIDE CARE UNTIL REPORT OFF TO DAY SHIFT RN.
--- NOTE | 2018-11-09 09:25 | NUR ---
ASSUMED CARE PT ALERT, BUT CONFUSED. PT ONLY RESPONDING WITH YES OR NO. VS STABLE. BP ELEVATED. ATTEMPTED TO MEDICATE PT. PT TOOK SOME MEDICATIONS AND THEN SPIT OUT SOME. WILL ATTEMPT TO ADMINISTER AT ANOTHER TIME. PT SITTING UP EATING BREAKFAST. AFTER FINISHING BREAKFAST, PT LIES DOWN AND HIS EYES ROLL BACK IN HIS HEAD. PT UNRESPONSIVE, BUT BREATHING. VS STABLE. HR IS TACHY AT 110'S. AFTER [address] DONAHUETRATE NOTIFIED WITH ORDERS FOR LAB DRAW. WILL AWAIT RESULTS. WILL CONTINUE TO MONITOR CLOSELY.
--- NOTE | 2018-11-09 18:00 | NUR ---
SHIFT SUMMARY PT ALERT, BUT UNABLE TO STATE HIS NAME, , OR PLACE. PT ABLE TO USE PICTURE BOARD TO STATE NEEDS. VS STABLE, BUT ELEVATED BP THIS SHIFT. DR. SINGER IS AWARE. PT DENIES ANY PAIN THIS SHIFT. PT HAD ONE EPISODE OF SEIZURE LIKE ACTIVITY THIS AM. PT HAS BEEN RESTING THROUGHOUT SHIFT. HR AFIB IN THE 90'S. REPORT GIVEN TO MEDICAL FLOOR RN. PT TAKEN TO FLOOR BY BED.
--- NOTE | 2018-11-09 18:09 | NUR ---
ASSUMED CARE PATIENT ARRIVED TO UNIT AT 1806. PATIENT ALERT, UNABLE TO STATE HIS NAME, , DATE, YEAR, OR WHERE HE IS. DENIES ANY PAIN OR SOB. BED ALARM IN PLACE. TELE AFIB @ 117 WITH A BBB PER DOUGH CATCHER. SEIZURE PRECAUTIONS IN PLACE. NO ACUTE CHANGES. RN WILL CONTINUE TO MONITOR.
--- NOTE | 2018-11-10 05:04 | NUR ---
SHIFT SUMMARY NO CHANGES IN ASSESSMENT AT THIS TIME. PT SLEPT MOST THIS NIGHT. PT VERY CALM & COOPERATIVE T/O SHIFT. VSS. WILL CONTINUE TO MONITOR UNTIL TURNOVER IS COMPLETE.
--- NOTE | 2018-11-10 15:42 | NUR ---
[facility] search: Pt not assessed by palliative care at this time. Review of chart, meds, notes. Pt does not have [facility] phone numbers. He is hospice appropriate with his problems - CHF with 20% EF qualifies, along with many comorbidities. He has not been oriented to himself. Called and spoke with [employer]: they do not have any contacts or file on the pt. Called and spoke with textile artist's dept. They are unable to give information. Spoke with Oliverio Krueger for ethics consult. Reviewed pt's current problems and condition. Goal would be to make this patient comfort care and hospice. He is going to be a placement in facility or [facility] home. Hospice would be warrented at this point. Will remain available and will discuss further with Oliverio if needed.
--- NOTE | 2018-11-10 18:18 | NUR ---
SUMMARY PT SITTING UP IN THE CHAIR AT THE BEDSIDE EATING HIS DINNER, PT HAS BEEN COOPERATIVE WITH CARE, TEARFUL AT TIMES, WORKED WITH PT/OT, MED ONCE WITH ATIVAN WITH GOOD RESULTS, VSS, NO ACUTE CHANGES, WILL CONT TO MONITOR
--- NOTE | 2018-11-11 05:25 | NUR ---
SHIFT SUMMARY NO CHANGES IN ASSESSMENT AT THIS TIME. VSS. PT EVENING DOSE OF LOPRESSOR HELD THIS SHIFT DUE TO HR OF 44. PT INC AT NIGHT. PT PLEASANT & COOPERATIVE THIS SHIFT. PT SLEPT THE MAJORITY OF THE NIGHT WAKING ONCE FOR A BRIEF CHANGE. WILL CONTINUE TO MONITOR UNTIL TURNOVER IS COMPLETE.
--- NOTE | 2018-11-11 13:22 | NUR ---
Pt visit this afternoon. Pt sitting in a chair eating his lunch upon arrival. He appears comfortable. Pt is A&Ox1. Difficult to assess Pt's level of understanding due to expressive aphasia. Pt becomes tearful during visit and is difficult to assess reason. Possibly due related to his ability to communicate. Offered emotional support and allowed time for him to attempt communication. This RN offered to end visit to allow Pt time to become calm. Received call from Pt's nurse Kaykay requesting a visit from feather mixer for Pt. Will contact feather mixer. Spoke with Oliverio Krueger regarding ethics consult and he reports that he will research Pt's chart and initiate ethics process. Palliative Care will remain available.
--- NOTE | 2018-11-11 13:54 | NUR ---
Late Entry from previous note. Spoke with ST Giordano regarding her assessment. She reports Pt experiences significant comprehension impairment. Spoke with Palliative Care Filling Room Operator Shelia reporting Pt may benefit from Filling Room Operator visit. Shelia reports that she will make a visit.
--- NOTE | 2018-11-11 16:48 | NUR ---
SHIFT SUMMARY PT UP TO CHAIR FOR MEALS. WAS CHEERFUL AND ABLE TO SAY A FEW WORDS TOGETHER THIS MORNING TO EXPRESS HIMSELF. WAS SPEAKING WITH CHOKER SETTER ASKING IF SHE COULD HELP WITH TURNING COMPUTER OFF AND THEN ON DUE TO ME BEING UNABLE TO REACH IT AND PT GOT UP AND EXPRESSED WITH HAND GESTURES HE WOULD DO IT. WAS ABLE TO PERFORM TASK WITH CUES TO FIND THE BUTTON AND WAS ABLE TO FOLLOW DIRECTIONS TO DO THE TASK. WAS TEARFUL AFTER LUNCH AND PALLIATIVE CARE VISITING. AFTER AWHILE PT KEPT POINTING TO TV AND MUMBLING INCOHARENTLY BUT WAS ABLE TO UNDERSTAND WITH POINTING HE WANTED THE VOLUME ON. ATIVAN GIVEN WELL BECAUSE HE HAD BECOME SO DISTRAUGHT FROM BEING UNABLE TO BE UNDERSTOOD. CALM AND WATCHING TV AFTER THAT. NAPPING LATER TODAY.
--- NOTE | 2018-11-11 17:04 | NUR ---
[facility] initial visit: Mr. Nguyen was sitting in chair. He was unable to communicate by any means. Nor did he seem to understand my questions/comments. I tried to have him write things down for me, but what he wrote was illegible--mostly random lines. It is also unclear if he has any hindu/spiritual/emotional needs. He does appear well cared-for by nursing. There was the name and phone numer for his ex-: Susan Nguyen on the front of his chart. I gavce this information to Oliverio Duffy who is handling Mr. Nguyen's case today. Mr. Nguyen did not appear to be in pain or distress. I will remain available.
[2018-11-11 21:40] LABS: Prolactin 4.5 ng/mL (2.5-17.4)
--- NOTE | 2018-11-12 00:44 | NUR ---
2034: patient found having seizure-like activity. ativan 1 mg was given per emar. the seizure-activity lasted about 10 minutes. i spoke to JACEY Bryson and received orders for an additional 2 mg dose and this was given per emar. after 2nd dose. patient sat up in bed for a time. before going to sleep. will continue to monitor.
--- NOTE | 2018-11-12 12:21 | NUR ---
Pt visist this afternoon. Pt is resting in bed with his eyes closed and appears comfortable. This RN did not disturb him at this time. Spoke with Pt's bedside nurse Kaykay and discussed plan of care. Received phone message from Pt's step son Cristopher requesting information. Called Pt's aunt Martha (decision maker) and received permission to give information to step son and Pt's ex Susan. Updated Martha on Pt's condition and plan. Martha expresses appreciation. Martha requests to have hospitalist call her with an update. No other concerns reported at this time. Called and spoke with step son Cristopher and updated on Pt's condition and plan. Listened as Cristopher expresses concerns with the possibility of Pt returning home and having Pt's girlfriend care for him. Cristopher reports that Pt and girlfriend both due drugs and is concern for Pt's safety. Cristopher also reports girlfriend is currently careing for her elderly parents. Intructed Cristopher this information will be relayed to child care aide Miriam. Discussed the possibility of Pt's Aunt Martha obtaining guardianship. Cristopher states that if Martha is not willing to obtain guardianship then he is willing. Spoke with Dr Schulz regarding Martha's request for a phone call and Dr Schulz reports that she will call Martha with an update. Dr Schulz signs Pt's POLST. Faxed copy of POLST to medical records. Pt's aunt Martha (decision maker) [phone] Pt's step son Cristopher [phone] Pt's ex Susan [phone] Palliative Care will remain available
--- NOTE | 2018-11-12 17:15 | NUR ---
SHIFT SUMMARY PT HAS SPENT ALL HIS DAY IN BED OTHER THAN FOR MEALS AND WHEN HE TOOK A SHOWER THIS AFTERNOON. HAS HAD NO CRYING EPISODES LIKE HE DID YESTERDAY AND HAS BEEN ABLE TO STRING A FEW WORDS TOGETHER AT TIMES THIS MORNING. MOSTLY NODS AND SHAKES HIS HEAD TO QUESTIONS. FEEDING HIMSELF WITH NO S/S OF ASPIRATION.
--- NOTE | 2018-11-12 20:33 | NUR ---
2020: PATIENT RESTED IN BED IN NO APPARENT DISTRESS WHILE UNDER MY CARE, REPORT WAS GIVEN TO CHARGE BERTHA CABRAL RN; PATIENT MOVED TO ROOM 342
--- NOTE | 2018-11-13 00:04 | NUR ---
11/12/182128 PT MOVED FROM 345. PT LYING IN BED, DENIES ANY DISCOMFORT AT THIS TIME. DENIES NEED FOR ANYTHING AT THIS TIME. NO APPARENT SIGNS OF DISTRESS. CALL LIGHT IS IN REACH. BED ALARM IS ON.
--- NOTE | 2018-11-13 00:06 | NUR ---
PT LYING IN BED, EYES CLOSED, APPEARS TO BE RESTING. BREATHING IS EVEN, UNLABORED. NO APPARENT SIGNS OF DISTRESS. CALL LIGHT IS IN REACH. BED ALARM IS ON.
--- NOTE | 2018-11-13 03:00 | NUR ---
PT LYING IN BED, EYES CLOSED, APPEARS TO BE RESTING. BREATHING IS EVEN, UNLABORED. NO APPARENT SIGNS OF DISTRESS. CALL LIGHT IS IN REACH.
--- NOTE | 2018-11-13 03:53 | NUR ---
PT IS AAO X 2, NONVERBAL. ON RA. PT IS INCONTINENT W/BRIEFS. NO REPORTS OF DISCOMFORT FOR THIS SHIFT.USING BED AND CHAIR ALARMS. MEDS WHOLE IN APPLESAUCE.
--- NOTE | 2018-11-13 03:53 | NUR ---
PT LYING IN BED, EYES CLOSED, APPEARS TO BE RESTING. BREATHING IS EVEN, UNLABORED. NO APPARENT SIGNS OF DISTRESS. CALL LIGHT IS IN REACH.
--- NOTE | 2018-11-13 05:58 | NUR ---
PT LYING IN BED, EYES CLOSED, APPEARS TO BE RESTING. BREATHING IS EVEN, UNLABORED. NO APPARENT SIGNS OF DISTRESS. CALL LIGHT IS IN REACH. BED ALARM IS ON. NO OTHER CHANGES THIS SHIFT.
--- NOTE | 2018-11-13 07:43 | NUR ---
PT A&O X1 TO SELF, APPEARS TO ANSWERS YES/NO QUESTIONS APPROPRIATELY. DENIES PAIN, NAUSEA, SOB. DENIES N/T. MOVES ALL EXT WELL. FOLLOWS DIRECTIONS. ABLE TO REPOSITION SELF IN BED. LUNG SOUNDS DIM T/O. BOWEL TONES PRESENT. REPORTS VOIDING AND PASSING GAS. PULLUP ATTENDS IN PLACE- CLEAN AND DRY. CALL LIGHT WITHIN REACH. BED ALARM ON FOR SAFETY. ENCOURAGED PT TO CALL FOR ASSISTANCE NEEDED. PT DENIES NEEDS AT THIS TIME.
--- NOTE | 2018-11-13 10:26 | NUR ---
PT RESTING QUIETLY IN BED WITH EYES CLOSED, NO ACUTE DISTRESS NOTED. PHYSICAL THERAPY WAS IN TO SEE PATIENT- PT WAS ABLE TO AMBULATE IN HALLWAY WITH FWW AND SBA.
[2018-11-13 11:22] LABS: BASOPHILS ABSOLUTE AUTO 0.08 K/mm3 (0.00-0.23); BASOPHILS PERCENT AUTO 1 % (0-2); EOSINOPHILS ABSOLUTE AUTO 0.23 K/mm3 (0.00-0.68); EOSINOPHILS PERCENT AUTO 3 % (0-6); Hematocrit 45.9 % (37.0-53.0); Hemoglobin 14.4 g/dL (13.5-17.5); IMMATURE GRAN ABSOLUTE AUTO 0.04 K/mm3 (0.00-0.10); IMMATURE GRAN PERCENT AUTO 1 % (0-1); LYMPHOCYTES ABSOLUTE AUTO 1.26 K/mm3 (0.84-5.20); LYMPHOCYTES PERCENT AUTO 15 % (21-46); MONOCYTES ABSOLUTE AUTO 0.82 K/mm3 (0.16-1.47); MONOCYTES PERCENT AUTO 10 % (4-13); Mean Corpuscular HGB Conc 31.4 g/dL (31.5-36.5); Mean Corpuscular Volume 80 fL (80-100); Mean Platelet Volume 9.5 fL (9.1-12.4); NEUTROPHILS ABSOLUTE AUTO 5.87 K/mm3 (1.96-9.15); NEUTROPHILS PERCENT AUTO 71 % (41-73); Platelet Count 318 K/mm3 (150-400); RDW Coefficient Variation 18.7 % (11.7-14.2); RDW Standard Deviation 52.1 fL (35.1-46.3); Red Blood Cell Count 5.76 M/mm3 (4.30-5.90)
[2018-11-13 11:41] LABS: Alanine Aminotransfer (ALT/SGP 22 U/L (12-78); Albumin, Blood 3.1 g/dL (3.4-5.0); Albumin/Globulin Ratio 0.9 (0.8-1.8); Alk Phos 58 U/L (50-136); Anion Gap 8 mmol/L (6-16); Aspartate Aminotrans (AST/SGOT 21 U/L (12-37); Bilirubin, Total 0.6 mg/dL (0.1-1.0); Blood Urea Nitrogen 23 mg/dL (8-24); Bun/Creatinine Ratio 21.1 (12.0-20.0); CO2, Blood 25 mmol/L (21-32); Calcium, Blood 8.6 mg/dL (8.5-10.1); Chloride, Blood 109 mmol/L (98-108); Creatinine, Blood 1.09 mg/dL (0.60-1.20); Globulin, Blood 3.5 g/dL (2.2-4.0); Glomerular Filtration Rate >60 (60-); Glucose, Blood 146 mg/dL (70-99); Sodium, Blood 142 mmol/L (136-145); Total Protein, Blood 6.6 g/dL (6.4-8.2)
--- NOTE | 2018-11-13 11:53 | NUR ---
PT AWAKE IN BED. DENIES NEEDS, NO COMPLAINTS.
--- NOTE | 2018-11-13 13:51 | NUR ---
REPORT GIVEN TO IZA MEEKS
--- NOTE | 2018-11-13 18:03 | NUR ---
SUMMARY PT SITTING UP IN BED EATING HIS DINNER, PT HAS BEEN UP WALKING IN THE HALLS WITH STAFF TODAY, PT WORKED WITH PT/OT, PT OCC TEARFUL WHEN HAVING APHASIA, PT COOPERATIVE WITH CARE, WILL CONT TO MONITOR
--- NOTE | 2018-11-14 04:16 | NUR ---
SHIFT SUMMARY PT HAS SLEPT SINCE BEGINNING OF SHIFT. PT WOKE UP TO TAKE EVENING MEDS WITHOUT DIFFICULTY AND WENT BACK TO SLEEP. PT WAS ABLE TO ANSWER SIMPLE QUESTIONS WHILE AWAKE. PT HAD NO ISSUES NOTED AND CONTINUES TO SLEEP. CALL LIGHT IN REACH
--- NOTE | 2018-11-14 11:06 | NUR ---
COMFORT CARE DC'ED PT CLINCALLY IMPROVING. VSS. PT STABLE AT THIS TIME. WILL CONTINUE TO MONITOR.
--- NOTE | 2018-11-14 14:21 | NUR ---
SHIFT SUMMARY NO CHANGES IN ASSESSMENT AT THIS TIME. VSS. PT RESTING IN BED. NAPPING ON & OFF THROUGHOUT SHIFT. NO COMPLAINTS AT THIS TIME. PT CONTINUES TO BE APHASIC. WILL CONTINUE TO MONITOR UNTIL TURNOVER IS COMPLETE.
--- NOTE | 2018-11-14 15:25 | NUR ---
ASSUMED CARE OF PATIENT AT THIS TIME
--- NOTE | 2018-11-15 03:20 | NUR ---
PT WOKE UP AND WANDERED AROUND ROOM AND PULLED OUT IV. PT REDIRECTED BACK TO BED. WILL CONTINUE TO MONITOR.
[2018-11-15 04:59] LABS: BASOPHILS ABSOLUTE AUTO 0.14 K/mm3 (0.00-0.23); BASOPHILS PERCENT AUTO 1 % (0-2); EOSINOPHILS ABSOLUTE AUTO 0.24 K/mm3 (0.00-0.68); EOSINOPHILS PERCENT AUTO 2 % (0-6); Hematocrit 50.6 % (37.0-53.0); Hemoglobin 15.7 g/dL (13.5-17.5); IMMATURE GRAN ABSOLUTE AUTO 0.05 K/mm3 (0.00-0.10); IMMATURE GRAN PERCENT AUTO 1 % (0-1); LYMPHOCYTES ABSOLUTE AUTO 2.54 K/mm3 (0.84-5.20); LYMPHOCYTES PERCENT AUTO 24 % (21-46); MONOCYTES PERCENT AUTO 10 % (4-13); Mean Corpuscular HGB 25.1 pg (26.0-34.0); Mean Corpuscular Volume 81 fL (80-100); Mean Platelet Volume 9.5 fL (9.1-12.4); NEUTROPHILS ABSOLUTE AUTO 6.76 K/mm3 (1.96-9.15); NEUTROPHILS PERCENT AUTO 62 % (41-73); Platelet Count 316 K/mm3 (150-400); RDW Coefficient Variation 18.6 % (11.7-14.2); RDW Standard Deviation 52.6 fL (35.1-46.3); Red Blood Cell Count 6.25 M/mm3 (4.30-5.90); White Blood Cell Count 10.83 K/mm3 (4.00-11.30)
--- NOTE | 2018-11-15 05:20 | NUR ---
SHIFT SUMMARY PT WAS IN CHAIR FOR MOST OF SHIFT. PT CONTINUES TO BE CONFUSED. PT IS ABLE TO AMBULATE TO BATHROOM WITHOUT ISSUE. PT WAS USING BATHROOM INDEPENDANTLY UNTIL HE WAS FOUND SITTING ON BATHROOM FLOOR BY DIE CUT OPERATOR. PT DENIED ANY PAIN AND HAD NO SIGNS OF INJURY. PT HAD POSSIBLE UNWITNESSED FALL. YELLOW GOWN PLACED ON PT. DR CELIS WAS CALLED AND INFORMED OF INCIDENT. PT VSS AND WILL CONTINUE TO MONITOR. PT CURRENTLY SLEEPING AND BREATHING EASY. CALL LIGHT IN REACH AND BED ALARM ON.
[2018-11-15 05:24] LABS: Albumin, Blood 3.6 g/dL (3.4-5.0); Albumin/Globulin Ratio 0.9 (0.8-1.8); Bilirubin, Total 0.9 mg/dL (0.1-1.0); Bun/Creatinine Ratio 15.6 (12.0-20.0); Calcium, Blood 9.2 mg/dL (8.5-10.1); Creatinine, Blood 1.28 mg/dL (0.60-1.20); Globulin, Blood 3.9 g/dL (2.2-4.0); Potassium, Blood 4.1 mmol/L (3.5-5.5); Total Protein, Blood 7.5 g/dL (6.4-8.2)
--- NOTE | 2018-11-15 17:19 | NUR ---
SHIFT SUMMARY PT AXO TO SELF, ANSWERS YES AND NO BUT CONTINUES TO HAVE EXPRESSIVE APASHIA. THIS MORNING AT 0944 PT COMPLAINED OF CHEST PAIN, GRABBING HIS LEFT CHEST. PT WAS NOT ABLE TO DESCRIBE HIS PAIN QUALITY AND INTENSITY. PER FACE SCALE, NURSE WOULD RATE IT AT AN 8 AT THAT TIME. 944, CHARGE NURSE NOTIFIED AND FIRST ATTEMPT TO CALL DR KEYS. 947 DR KEYS RETURNED CALL AND ORDERED STAT TROPONIN AND EKG. 954 VS COMPLETED, SEE VS, WHICH WERE STABLE. EKG AT 09 REVEALED A-FIB WITH RVR WITH RATE OF 109. DR KEYS NOTIFIED. NITRO X2 DOSES. THIRD DOSE HELD DUE TO BP AND PT PAIN IMPROVING. PT QUIET AND RESTING IN ROOM FOR THE REST OF THE SHIFT. BED IN LOW POSITION, CALL LIGHT WITHIN REACH, BED ALARM ON. DR KEYS NOTIFIED THAT PT'S GIRLFRIEND WANTED A PHONE CALL.
--- NOTE | 2018-11-15 19:28 | NUR ---
PT HAD GOT OUT OF BED AND TRIED TO LEAVE ROOM. PT IS A FALL RISK AND WAS ATTEMPTED TO BE REDIRECTED TO HIS BED. PT BEGAN TO GRAB AT THIS RN. SECURITY WAS CALLED PT WAS PLACED BACK INTO BED. PT WAS PLACED IN DEDE VEST AND FOUR POINT SOFT RESTRAINTS. PT IS CONFUSED AND UNABLE TO FOLLOW DIRECTIONS. WILL CONTINUE TO MONITOR.
--- NOTE | 2018-11-15 20:10 | NUR ---
ASSUMED CARE OF PATIENT AROUND 2009. PATIENT WAS PLACED IN POSI VEST AND 4 POINT HARD RESTRAINTS, HE WAS BREAKING THE SOFT RESTRAINTS. PATIENT IS RESTING CALMING IN THE ROOM. RESTRAINTS ARE ALL IN PLACE, ATTEMPTED TO TALK TO THE PATIENT AND GET HIM TO RESPOND, CAN SEE HIS EYES TWITCHING LIKE THEY WANT TO OPEN BUT HE IS KEEPING THEM CLOSED. HE WOULD NOT RESPOND, THEREFORE WILL LET HIM REST FOR SHORT PERIOD AND ATTMEPT AGAIN FOR HIS MEDS.
--- NOTE | 2018-11-16 06:09 | NUR ---
SHIFT SUMMARY: PATIENT HAD A ROUGH START TO HIS SHIFT. HE WAS PLACED IN RESTRAINTS 4 POINT HARD AND A POSI FOR AGGRESSIVE BEHAVIOR. HE REMAINED RESTING AFTER THIS DUE TO INCREASE IN STIMULATION, AND POSSIBLY DUE TO FRUSTRATION WITH STAFF. HE WOULD NOT RESPOND TO ME AT FIRST OF SHIFT AFTER RESTRAINTS WERE PLACED. HE WOULD BE A WAKE BUT KEPT EYES CLOSED AND WOULD NOT RESPOND. THEREFORE MEDS WERE GIVEN LATE. HE FINALLY DECIDED TO RESPOND AROUND MIDNIGHT WHERE i WALKED INTO HIM PULLING ON THE RESTRAINTS. HE AGREED TO TAKE HIS MEDS AND STAY IN THE ROOM THEREFORE REMOVED THE RESTRAINTS TO ALLOW FOR MEDICATION ADMINISTRATION AND BATHROOM NEEDS. HE DID VOID WITH INGOT BUGGY OPERATOR, BUT WANTED TO WALK AROUND THE ROOM, THIS WAS SAFETY ISSUES HE WAS FOUND ON THE FLOOR MORNING BEFORE LAST. HE WAS COACHED BACK TO BED AND ALLOWED US TO PLACE THE POSI BACK ON HIM, LEAVING THE FOUR POINTS OFF. HE SLEPT OFF AND ON, ONLY ATTEMPTING TO GET UP TWICE. BUT HE WAS EASILY REDIRECTED AND REMAINED COOPERATIVE REST OF SHIFT. WILL REPORT TO DAY SHIFT RN.
--- NOTE | 2018-11-16 15:02 | NUR ---
ADULT PROTECTIVE SERVICES IN ROOM AT THIS TIME
--- NOTE | 2018-11-16 16:56 | NUR ---
REPORT GIVEN TO JONAS PIMENTEL WHO WILL ASSUME CARE AT THIS TIME IN ROOM 348
--- NOTE | 2018-11-16 17:15 | NUR ---
PATIENT ARRIVES FROM MEDICAL FLOOR. APPEARS COOPERATIVE AT THIS TIME. LUNGS DIM T/O. PULSES DIM IN LOWER EXT.TINY SCABS SCATTERED. UNLABORED RESPIRATIONS. ON R.A. DROWSEY. BED IN LOW POSITION. ON CONTACT FOR MRSA IN NARES. WCTM
--- NOTE | 2018-11-17 05:11 | NUR ---
PT. A&O TO SELF, APPEARED VERY ANXIOUS THIS EVENING. OOB 1X AND WALKED OUT INTO THE HALLWAY. REDIRECTED BACK TO BED PT. IS HIGH FALL RISK AND GAIT UNSTEADY. ASLEEP IN BED COMFORTABLY, NO APPARENT DISTRESS NOTED. CALL LIGHT WITHIN REACH, SIDE RAILS UP X3, AND BED ALARM ON. WILL CONT TO MONITOR.
[2018-11-17 05:47] LABS: Albumin, Blood 3.2 g/dL (3.4-5.0); Anion Gap 6 mmol/L (6-16); Blood Urea Nitrogen 21 mg/dL (8-24); Bun/Creatinine Ratio 19.3 (12.0-20.0); CO2, Blood 27 mmol/L (21-32); Calcium, Blood 8.8 mg/dL (8.5-10.1); Chloride, Blood 110 mmol/L (98-108); Creatinine, Blood 1.09 mg/dL (0.60-1.20); Glomerular Filtration Rate >60 (60-); Glucose, Blood 85 mg/dL (70-99); Phosphorus, Blood 4.2 mg/dL (2.5-4.9); Potassium, Blood 4.1 mmol/L (3.5-5.5); Sodium, Blood 143 mmol/L (136-145)
--- NOTE | 2018-11-17 09:40 | NUR ---
PATIENT ATE BREAKFAST THIS AM WITHOUT DIFFICULTY. NO COUGHING. SPEECH THERAPY WAS IN TO SEE. MORNING MEDS WERE GIVEN. AFTER RN LEFT ROOM CHAIR ALARM WENT OFF AND PER BELT BACK OPERATOR PATIENT GOT UP AND WENT TO BED. PATIENT FOUND IN BED ON RT SIDE CURLED UP HOLDING LOWER ABD. WHEN ASKED IF ABD HURTS, PATIENT NODS AFFIRMATIVE. WHEN ASKED IF HE NEEDS TO URINATE SHAKES HEAD. PATIENT IN AND OUT CONSCIOUSNESS. POSSIBLE SEIZURE ACTIVITY. RAPID CALLED. IN ROOM. AMANDA MEEKS IN ROOM.
--- NOTE | 2018-11-17 09:52 | NUR ---
EX , AND 2 SONS IN ROOM. ANDRE GORDON FREE TO TALK TO FAMILY
--- NOTE | 2018-11-17 10:09 | NUR ---
Clinical Visit: Rapid response called for this patient today. Called and spoke to pt's aunt Martha, decision maker. She states that she has already spoken to provider and nurses permission to place patient on comfort measures prior to this. She confirms comfort status and only wants us to give comfort medications at this point. Called and spoke to florencio and ex-. They are in town and on their way to the hospital. Dr. Rodriguez places comfort care orders. Present: Have spoken and met with the family in the room. Allowed time for questions. Pt is trying to sing and is giggling in bed. Family states that he does not normally do that. Encouraged to share memories and play his favorite music. They have no concerns at this time.
--- NOTE | 2018-11-17 14:20 | NUR ---
SHOWER GIVEN WITH PATIENT TOLERATING WELL. PATIENT SMILING AFTER. WCTM
--- NOTE | 2018-11-17 16:35 | NUR ---
PATIENT MEDICATED AFTER RAPID RESPONSE FOR ANXIETY AND PAIN WITH GOOD RESULTS. AFTER RELATIVES LEFT PATIENT HAD SHOWER AND HAS BEEN MAKING SMALL CONVERSATION THAT AT TIMES IS VERY APPROPRIATE. APPEARS COMFORTABLE, SMILING. WCTM
--- NOTE | 2018-11-17 17:41 | NUR ---
[facility] visit: Mr. Nguyen appeared to be sleeping and peaceful this afternoon. No family/friends present. Nursing doing a great job with pain/symptom management. Silent prayer for a peaceful transition provided at bedside. I will remain available.
--- NOTE | 2018-11-17 22:56 | NUR ---
PT. LAYING IN BED WATCHING TV, NO APPARENT DISTRESS NOTED. DENIES NEEDS AT THIS TIME. CALL LIGHT WITHIN REACH, SIDE RAILS UP X3, AND BED ALARM ON. WILL CONT TO MONITOR.
--- NOTE | 2018-11-18 05:26 | NUR ---
PT. APPEARED TO HAVE RESTED COMFORTABLY T/O THE NIGHT. NO ACUTE CHANGES OVERNIGHT OR ANY COMPLAINTS. PT. IS COMFORT CARE. RECEIVED CALL FROM GIRLFRIEND "LUCA" WHO WAS ABLE TO SPEAK WITH PT. CALL LIGHT WITHIN REACH, SIDE RAILS UP X3, AND BED ALARM ON.
--- NOTE | 2018-11-18 16:08 | NUR ---
Pt visit this afternoon. Pt is lying in bed upon arrival. Pt is experiencing expressive aphasia. Pt at times is able to answer yes or no but struggles with most verbal responses. When asked about pain he shakes his head back and forth indicating yes and is holding his stomach. Pt also grimaces and moans. PAINAD score is 4/10. Pt tearful for a couple of minutes. Spoke with Pt's bedside nurse Kelsey and reported Pt's pain. Kelsey adminsters roxinol and ativan for pain and axiety. Chart shows last BM 3 days ago. Kelsey also administers MOM. Pt appears nauseated after medication administration as evidenced by dry heaving. Called and spoke with Dr Rodriguez and she reports that she will order Zofran IV and ODT. Palliative Care will remain available.
--- NOTE | 2018-11-18 18:09 | NUR ---
ALERT TO SELF. PATIENT TURNS SELF. STEADY GAIT IN ROOM. C/O ABD PAIN AND THEN NAUSEA AFTER MEDS. AT THIS TIME PATIENT IS EATTING AND SMILING, GIGGLING. APPEARS VERY COMFORTABLE. SUNNY.
--- NOTE | 2018-11-19 06:09 | NUR ---
68 year old Male on comfort measures is alert and active. denies pain or acute distress but very restless so comfort care given 1 mg iv ativan and 10 mg of roxinol with good relief. resting quietly. difficulty communicating only says yes or no. No visitors this shift.
--- NOTE | 2018-11-19 06:42 | NUR ---
PT WAS RESTING QUIETLY UNTIL LAST ROUND WHEN IT WAS DISCOVERED HE REMOVED HIS IV SALINE LOCK. WILL MEDICATE FOR PAIN /ANXIETY
--- NOTE | 2018-11-19 15:46 | NUR ---
PATIENT SLEEPING DURING MORNING SHIFT CHANGE.
--- NOTE | 2018-11-19 15:47 | NUR ---
PATIENT SLEEPING, NO DISTRESS NOTED. THIS NURSE SPOKE WITH SON AND GAVE UPDATE ON CONDITION OF PATIENT. NO VISITORS THIS SHIFT.
--- NOTE | 2018-11-19 15:47 | NUR ---
PATIENT UP FOR LUNCH. NO DISTRESS NOTED
--- NOTE | 2018-11-19 15:59 | NUR ---
Pt is resting in bed with his eyes closed and appears comfortable. No signs of distress at this time. This RN did not disturb Pt at this time. Spoke with bedside nurse Cielo and she reports not concerns at this time. Palliative Care will remain available.
--- NOTE | 2018-11-19 20:00 | NUR ---
alert confused, able to feed self. upright room air, foldig paper offers to RN.
--- NOTE | 2018-11-19 20:44 | NUR ---
DR Lazo updated PT had removed his IV access this AM is on comfort care. order for no iv access needed change iv to oral equivelent. dc tenovate ointmnet and strt oral benadryl q ^ hrs prn itching.
--- NOTE | 2018-11-20 06:43 | NUR ---
PT DENIES PAIN OR ACUTE ANXIETY TODAY. HE HAS A FEW MORE WORDS BESIDES YES AND NO, NOW SAID THANK YOU CONTINUES TO AWAIT PLACEMENT ON HOSPICE.
--- NOTE | 2018-11-20 06:45 | NUR ---
REMOTE CAMERA MONITORING TO PREVENT FALLS CONTINUES. NO CALLS ON PT FROM CRANE CREW SUPERVISOR
--- NOTE | 2018-11-20 09:31 | NUR ---
PATIENT SLEEPING UPON DURING MORNING REPORT. NO SS OF DISTRESS NOTED. DID NOT WAKE THE PATIENT.
--- NOTE | 2018-11-20 16:04 | NUR ---
PATIENT SLEEPING . NO DISTRESS NOTED.
--- NOTE | 2018-11-20 16:04 | NUR ---
PATIENT SLEEPING SOUNDLY
--- NOTE | 2018-11-20 17:51 | NUR ---
PATIENT PUT IN CHAIR FOR DINNER. NO DISTRESS NOTED.
--- NOTE | 2018-11-20 18:21 | NUR ---
PATIENT HAS SLEPT ALL SHIFT. WOKE AT 1700N AND HAD DINNER IN CHAIR. NO CHANGES TO PATIENT.
--- NOTE | 2018-11-20 20:12 | NUR ---
Clinical Visit: Pt resting comfortably at this time. No s/s of distress. Breathing even and unlabored. Reviewed with nurse. Pt slept most of the day, ate 90% of his dinner. Reviewed medications. Will remain available.
--- NOTE | 2018-11-21 04:35 | NUR ---
SHIFT SUMMARY: PT IS ALERT AND ORIENTED TO SELF. PT IS COOPERATIVE WITH CARE. PT NOT USING HIS CALL LIGHT, SET OFF THE BED ALARM ON SEVERAL OCCASIONS UP TO THE BATHROOM. PT IS A STANDBY ASSIST. PT SLEPT MUCH OF THE NIGHT. PT SHOWS NO S/S FOR PAIN, NAUSEA, VOMITING, OR SOB. NO ACUTE CHANGES OR COMPLICATIONS THIS SHIFT. WILL CONTINUE TO MONITOR.
--- NOTE | 2018-11-21 09:36 | NUR ---
PATIENT IN BED SLEEPING.
--- NOTE | 2018-11-21 11:05 | NUR ---
PATIENT IS IN BED SLEEPING. REPOSITIONS SELF IN BED
--- NOTE | 2018-11-21 12:21 | NUR ---
Pt visit this afternoon. Pt is sitting in chair with his eyes closed and appears comfortable with no S/S of distress. Pt awakens easily with soft gentle voice. Pt answers yes to being comfortable and no to pain. Spoke with bedside nurse Argelia and she reports Pt can bed impulsive and will get out of bed or chair when needing to use bathroom and does not wait for assistance. No other concerns reported at this time. Palliative Care will remain available.
--- NOTE | 2018-11-21 13:46 | NUR ---
BED ALARM IS ON. PATIENT GETS OUT OF BED ON HIS OWN TO USE THE RESTROOM. NO COMPLAINTS. UP TO THE CHAIR FOR MEALS.
--- NOTE | 2018-11-21 18:12 | NUR ---
PATIENT IS ALERT AND ORIENTED. HE SLEPT IN BED THROUGHOUT THE DAY. BEDALARM WAS ON. HE WOULD GET OUT OF BED AND WALK TO THE BATHROOM INDEPENDENTLY. PATIENT REPOSITIONS SELF IN BED. NO COMPLAINTS OR CONCERNS. WILL CONTINUE TO MONITOR
--- NOTE | 2018-11-22 05:11 | NUR ---
SHIFT SUMMARY: PT IS ALERT AND CONFUSED. PT DOES NOT USE HIS CALL LIGHT, SET BED ALARM SEVERAL TIMES TO GO TO THE BATHROOM. PT IS A STANDBY ASSIST. PT SLEPT MUCH OF THE NIGHT. PT SHOWS NO S/S FOR PAIN, NAUSEA, VOMITING, OR SOB. NO ACUTE CHANGES OR COMPLICATIONS THIS SHIFT. WILL CONTINUE TO MONITOR.
--- NOTE | 2018-11-22 10:01 | NUR ---
Pt visit this AM. Pt resting in bed and appears comfortable. Pt is able to answer yes and no questions. Pt states no to having pain, Pt states yes to being comfortable. No S/S of distress at this time. Spoke with bedside nurse Luna and she reports no concerns at this time. Palliative Care will remain available.
--- NOTE | 2018-11-22 18:02 | NUR ---
SHIFT SUMMARY PT AXO TO SELF, PLEASANTLY CONFUSED. ON COMFORT CARE. PT DENIES PAIN. NO ACUTE CHANGES THIS SHIFT. THOUGH PT IS STRAINING ON THE TOILET, PT MEDICATED PER EMAR. PT SITTING UP AT SIDE OF BED TO EAT DINNER AT THIS TIME. BED IN LOW POSITION. CALL LIGHT WITHIN REACH.
--- NOTE | 2018-11-23 05:21 | NUR ---
SHIFT SUMMARY: PT IS ALERT AND CONFUSED. PT IS A STANDBY ASSIST. PT DOES NOT USE HIS CALL LIGHT, SET OFF BED ALARM ON SEVERAL OCCASIONS. PT IS CALM AND COOPERATIVE WITH CARE. PT UP TO THE BATHROOM TRYING TO HAVE A BM WITH SUBSTANTIAL STRAINING, GAVE PRN MILK OF MAGNESIA. PT SHOWS NO S/S FOR PAIN, NAUSEA, VOMITING, OR SOB. PT SLEPT MUCH OF THE NIGHT. NO ACUTE CHANGES OR COMPLICATIONS. WILL CONTINUE TO MONITOR.
--- NOTE | 2018-11-23 18:34 | NUR ---
NO ACUTE CHANGES NOTED THIS SHIFT. PT WAITING FOR DISCHARGE PLACEMENT. HEALTH CARE DECISION MAKER, CL SCHWARZ, AUNT, REQUESTS THAT NO INFO BE GIVEN TO ANYONE EXCEPT HERSELF. WILL CONTINUE TO MONITOR AND REPORT TO ONCOMING RN
--- NOTE | 2018-11-24 06:16 | NUR ---
SHIFT SUMMARY PT HAD SLEPT WELL AT BEGINNING OF SHIFT. PT BECAME ANXIOUS AND WAS MEDICATED PER EMAR. PT RESPONDED WELL AND RELAXED AND WENT TO SLEEP. PT DID GET OUT OF BED A FEW TIMES AND WALK INTO HALLWAY. PT REDIRECTED TO ROOM WITHOUT ISSUE. PT CURRENTLY SLEEPING AND IN NO DISTRESS. CALL LIGHT IN REACH AND BED ALARM ON. PT ON CAMERA.
--- NOTE | 2018-11-24 17:29 | NUR ---
NO ACUTE CHANGES NOTED THIS SHIFT, WILL CONTINUE TO MONITOR AND REPORT TO ONCOMING RN
--- NOTE | 2018-11-25 06:46 | NUR ---
a+o to self and location, hard to assertain level of awareness due to asphasia, impulsive but cooperative, get up without calling but sits back down when told to, worked very hard to tell something that was happening outside his window, finally gave up and crawled back into bed
--- NOTE | 2018-11-25 12:46 | NUR ---
PATIENT DID NOT WANT TO EAT LUNCH THIS SHIFT. RN NOTIFIED.
--- NOTE | 2018-11-25 13:24 | NUR ---
PATIENT CAN ANSWER YE/NO QUESTIONS BY NODDING HIS HEAD. DENIES ANY PAIN OR DISCOMFORT. DENIES ANY NAUSEA OR UPSET STOMACH. DENIES ANY NEEDS AT THIS TIME. INSTRUCTED TO CALL FOR ASSISTANCE. BED ALARM SET FOR SAFETY. CALL LIGHT WITHIN REACH
--- NOTE | 2018-11-25 13:24 | NUR ---
PATIENT SLEEPING AT THIS TIME. NO S/S OF PAIN NOTED.
--- NOTE | 2018-11-25 13:26 | NUR ---
PATIENT SLEEPING AT THIS TIME. CALL LIGHT WITHIN REACH. FALL PRECAUTIONS IN PLACE PER PROTOCOL.
--- NOTE | 2018-11-25 15:13 | NUR ---
PATIENT SLEEPING AT THIS TIME. NO S/S OF PAIN ASSESSED. FALL PRECAUTIONS IN PLACE AND CALL LIGHT WITHIN REACH.
--- NOTE | 2018-11-25 17:14 | NUR ---
PATIENT POINTING AT STOMACH AND CRYING. WHEN ASKED IF HE WAS IN PAIN HE NODDED YES AND POINTED TO HIS ABDOMEN. 10MG ROXINOL GIVEN TO TREAT. 20 MINUTES AFTER GIVING ATIVAN PATIENT BECAME EVEN MORE RESTLESS AND ANXIOUS AND SEEMED TO BE HALLUCINATING. JUMPED OUT OF BED AND WENT INTO BATHROOM AND SEARCHED AROUND IF HE WAS SEEING SOMETHING THAT WASN'T THERE. PATIENT GIVEN 1MG ATIVAN TO TREAT ANXIETY.
--- NOTE | 2018-11-26 05:53 | NUR ---
Rn summary: Patient is alert, he nods yes and no and sometimes says yes and no. Pt is alert to where the bathroom is, he makes sure he gown is closed in back to maintain modesty. Pt did eat a sandwich during the night. He has only slept on and off. Denies pain. No signs of anxiety. Pt remains on comfort care. Bed alarm on but pt knows how to turn alarm off and will sit up and try to turn alarm off before it rings. Continue to monitor.
--- NOTE | 2018-11-26 09:14 | NUR ---
PATIENT CALM AND COOPERATIVE. ABLE TO FEED HIMSELF HIS OWN MEALS. SBA TO RESTROOM. DENIES ANY PAIN OR ANXIETY.
--- NOTE | 2018-11-26 16:21 | NUR ---
PATIENT HALLUCINATING. PATIENT UP TO BATHROOM AND FOUND IN SHOWER HIDING. PATIENT TERRIED OF SOMETHING AND LOOKING AROUND LIKE HE SEES SOMETHING SCARY. WHILE ATTEMPTING TO GET PATIENT BACK TO BED HE JUMPED UP ON BENCH AND STARTED PLAYING AROUND WITH THE BLIINDS. PATIENT ASSISTED BACK TO BED AND ATIVAN GIVEN TO HELP ANXIETY. STAFF STAYED AT BEDSIDE UNTIL PATIENT WAS CALM. PATIENT SO SCARED THIS TIME HE WAS CRYING AND SHAKING.
--- NOTE | 2018-11-26 16:24 | NUR ---
PATIENT MUCH CALMER. LYING IN BED EATING HIS LUNCH AND SMILING. DENIES ANY PAIN OR NEEDS AT THIS TIME.
--- NOTE | 2018-11-26 18:45 | NUR ---
PATIENT GIVEN ATIVAN DUE TO ANXIETY RELATED TO HALLUCINATIONS. PATIENT TEARFUL AT TIMES AND VERY AFRIAD OF WHAT HE IS SEEING. DOES WELL WITH ATIVAN AND STAYS CALM AND HAPPY FOR SEVERAL HOURS BETWEEN. PATIENT ATE ALL HIS DINNER AND HAS SNACKS AT THE BEDSIDE. PATIENT DENIES ANY PAIN THIS SHIFT. GAIT STEADY, SBA TO RESTROOM. FALL PRECAUTIONS IN PLACE PER UNIT PROTOCOL.
--- NOTE | 2018-11-26 19:13 | NUR ---
Comfort Care: Pt appeared to be comfortable. Meds reviewed.
--- NOTE | 2018-11-26 20:35 | NUR ---
BEGINNING OF SHIFT ASSESSMENT. PT IS SLEEPING SOUNDLY WITH NO SIGNS OF ANXIETY OR DISCOMFORT. BED ALRM ON, WILL CONTINUE TO MONITOR.
--- NOTE | 2018-11-27 05:25 | NUR ---
Rn summary: Patient is alert. He does nod yes and no. He has had no anxiety episode this shift. Pt has rested well, getting up to the BR. Pt is steady on his feet. Pt is a comfort care patient. He has denied any discomfort this shift. Call light is in reach but he does not use it. Bed alarm on with close monitoring.
--- NOTE | 2018-11-27 09:21 | NUR ---
PATIENT IS CURRENTLY RESTING COMFORTABLY. HE HAS HAD NO SIGNS OF DISTRESS THIS MORNING, WILL CONTINUE TO ASSESS PRN. CURRENTLY NO ACUTE CONCERNS.
--- NOTE | 2018-11-27 14:00 | NUR ---
CONTINUING TO CHECK IN WITH THE PATIENT. NO ACUTE CONCERNS, HE IS PLEASANT AND COMFORTABLE. HE HAS EATEN HIS MEALS AND NO ACUTE CONCERNS AT THIS TIME. HE IS RESTING COMFORTABLY, HE WAS OFFERED A SHOWER AND DID NOT WANT ONE RIGHT NOW.
--- NOTE | 2018-11-27 14:24 | NUR ---
Pt visit this afternoon. Pt resting in bed with his eyes closed. No S/S of distress. Spoke with bedside nurse Tanya and she reports no concerns at this time. Palliative Care will remain available.
--- NOTE | 2018-11-27 16:55 | NUR ---
SHIFT SUMMARY PATIENT IS PLEASANT, NO ACUTE CONCERNS AT THIS TIME. HE HAS BEEN PELASANT ALL DAY, NO COMPLAINTS OF PAIN, ANXIETY, OR ANY CONCERNS AT ALL.
--- NOTE | 2018-11-28 07:24 | NUR ---
SHIFT SUMMARY PT BEEN INDEPENDENT IN ROOM TO . GOT UP ABOUT 3-4X TO GO TO THEN BACK INTO BED AND SLEPT THROUGH THE NIGHT. PT ON CC.
--- NOTE | 2018-11-28 16:44 | NUR ---
SHIFT SUMMARY PATIENT PLEASANT, ON COMFORT CARE AND DOING WELL. NO ACUTE CONCERNS AT THIS TIME.
--- NOTE | 2018-11-28 17:26 | NUR ---
COMFORT CARE VISIT EARLIER THIS AFTERNOON. PT WAS ASLEEP AND I DID NOT DISTURB HIM. REVIEWED EMR AND CASE CONFERENCED WITH PT'S RN, WHO REPORTS THAT PT HAS NOT HAD HALLUCINATIONS THE PAST TWO DAYS AND HAS BEEN ABLE TO COMMUNICATE HIS NEEDS AND S/S TO HER. HE IS CONVERSANT FOR SHORT CONVERSATIONS. HE HAD AN EPISODE OF REPORTED CHEST PAIN EARLIER THIS AM THAT WAS WELL RESOLVED WITH ROXANOL GIVEN PER EMR. HE HAS NOT HAD C/O OF EXHIBITED ANXIETY. WILL CONT TO FOLLOW FOR S/S MANAGEMENT.
--- NOTE | 2018-11-29 05:20 | NUR ---
SHIFT SUMMARY PT INDEPENDENT IN ROOM. CRYING AT START OF SHIFT ASKED HIM WHY BUT HE COULD NOT COMMUNICATE WHY. HE WAS ABLE TO SLEEP THROUGH THE NIGHT.
--- NOTE | 2018-11-29 17:34 | NUR ---
SHIFT SUMMARY PATIENT HAS BEEN PLEASANT TODAY, NO ACUTE CONCERNS. DID HAVE SOME FITS OF TEARS AND I TRIED TO TALK THE PATIENT THROUGH THE TEARS. HE HAS BEEN MOSTLY HAPPY TODAY AND STILL HOLDING SOME CONVERSATIONS. NO ACUTE CONCERNS FOR THE PATIENT AT THIS TIME.
--- NOTE | 2018-11-30 06:47 | NUR ---
SHIFT SUMMARY PT ON CC. INDEPENDENT IN ROOM. SLEPT T/O NIGHT UP AT TIMES TO BA AND EAT SNACKS.
--- NOTE | 2018-11-30 08:07 | NUR ---
HE WAS UP AD JUDE IN THE ROOM DURING REPORT BUT IS COMFORTABLE BACK IN BED NOW. HE SAID HE LAST NAME CLEARLY WHEN ASKED AND 2 APPROPRIATE YES'S BUT DID NOT FORM ANY OTHER WORDS WHEN I ASKED HIM QUESTIONS. HE TRIED BUT COULDN'T. HE APPEARS COMFORTABLE.
--- NOTE | 2018-11-30 10:28 | NUR ---
HE DENIES ANY NEEDS. HE IS PLEASANTLY CONFUSED. HE IS COMFORTABLE.
--- NOTE | 2018-11-30 11:32 | NUR ---
Telephone call with Martha Sesay pertaining to guardianship and APD worker assignment. Martha indicates that she prefers a publicly assigned guardian option to a family arrangement since she believes that by accepting the rights and responsibilities of the role she would be at risk of mistreatment and or harassment by [place] ex-girfriend. Previously she had expressed that she would be amenable to serving if she carried no financial liability, this has changed. I provided active listening, encouragement, and a full case update. She thanked me. I told her that the Care Management Team was working arduously on the placement and APD process and would continue to follow up. She expressed appreciation.
--- NOTE | 2018-11-30 12:08 | NUR ---
HE IS LAUGHING AND SMILING. HE IS UNABLE TO TELL ME WHEN HE HAD HIS LAST BM. NONE DOCUMENTED THIS LAST WEEK. HE IS INDEPENDENT IN THE BATHROOM BUT WILL OFFER MOM.
--- NOTE | 2018-11-30 13:38 | NUR ---
Mor was alert, socially pleasant, and appeared comfortable and well managed. He displayed some frustration and consternation over his inability to smoothly and legibly communicate. I normalized his struggle, gave it a voice, and worked with him on writing dexterity, and slow calculated verbal expression. Mor was able to formulate a couple of sensible and cohesive sentences after we practiced writing his name. I offered encouragement and praise, and provided guidance on coping. Mor consented to me playing acoustic guitar music on my next visit.
--- NOTE | 2018-11-30 13:51 | NUR ---
Comfort Care: Pt is alert, appears to be oriented to situation. He is having difficulty finding words and becomes frustrated. He is joyful and laughs at himself occasionally for not finding the right words. He states he has a "little" pain. He would be willing to take some pain medcation. Reported to nurse, Alysia. Will remain available.
--- NOTE | 2018-11-30 16:51 | NUR ---
1400 NOTE SHOWERED. MILD ABD PAIN RELATED TO THE PALLIATIVE CARE NURSE. TYLENOL AND BOWELL CARE GIVEN. NO OTHER CHANGES.
--- NOTE | 2018-11-30 16:53 | NUR ---
1600 NOTE SMILING. SAYS YES HE IS FEELING BETTER. EXPRESSIVE APHASIA IS SIGNIFICANT. HE DID SAY 2 SHORT SENTENCES TO THE BUSINESS SERVICES SPECIALIST SALES TODAY THOUGH. HE IS UP IN THE ROOM AD JUDE.
--- NOTE | 2018-11-30 19:24 | NUR ---
1800 NOTE NO CHANGES. HE HAS NO COMPLAINTS.
--- NOTE | 2018-12-01 05:28 | NUR ---
SHIFT SUMMARY PT INITIALLY ADMITTED FOR A-FIB WITH RVR. CONTACT ISOLATION FOR MRSA IN NARES. DNR-CC. [facility] SOFT GROUND MEAT CARDIAC DIET, NO MIXED CONSISTENCY, NO STRAW, AND ASPIRATION PRECAUTIONS STILL ORDERED. HOWEVER, PT IS CC. NO IV ACCESS NEDED. ADVANCE DIET TOLLERATED. MEDICATIONS WHOLE IN APPLESAUCE.CONFIDENTIAL PT. INDEPENDENT IN ROOM. NO APPARENT ACUTE CHANGES NOTED SO FAR THIS SHIFT. PT IS INDEPENDENT IN ROOM. HAS APPEARED TO SLEEP COMFORTABLY MOST OF THE NIGHT WITH NO APPARENT SIGNS OF ACUTE DISTRESS. FREQUENT VISUAL CHECKS IT DOES NOT APPEAR THAT PT IS ABLE TO MAKE NEEDS KNOWN. WILL CONTINUE TO MONITOR PER COMFORT CARE.
--- NOTE | 2018-12-01 08:28 | NUR ---
0800 NOTE HE LOOKS PRETTY COMFORTABLE. WHEN ASKED ABOUT PAIN, HE SHRUGS AND SAYS YES AT THE SAME TIME. HE APPEARED TO SAY YES TO A TYLENOL DOSE THIS MORNING. HIS EXPRESSIVE APHASIA IS SIGNIFICANT. THE NIGHT NURSE REPORTED HE HAD BEEN IN THE BATHROOM. SHE SMELLED GAS OR A BM BUT HE FLUSHED THE TOILET AND COULD NOT TELL HER OR ME THIS MORNING WHETHER HE HAD A BM.
--- NOTE | 2018-12-01 11:05 | NUR ---
1000 NOTE HE HAS HAD A GOOD MORNING. [facility] WAS HERE TO INTERVIEW HIM AND GATHER INFO FROM MYSELF AND MANDIE THE FINANCIAL OFFICER. HE WAS ABLE TO ANSWER SOME OF THEIR QUESTIONS CORRECTLY. WHEN I TOOK IN HIS TYLENOL HE DIDN'T REALLY INDICATE ANY PAIN BUT I GAVE IT FOR POSSIBLE GENERAL DISCOMFORT. IT IS LOW DOSE.
--- NOTE | 2018-12-01 12:09 | NUR ---
NO CHANGES. EATS AND DRINKS WELL.
--- NOTE | 2018-12-01 14:26 | NUR ---
1400 NOTE ATE WELL AT LUNCH. NO CHANGE
--- NOTE | 2018-12-01 16:40 | NUR ---
NO CHANGE IN CONDITION.
--- NOTE | 2018-12-01 18:35 | NUR ---
HE HAS HAD LESS MOOD SWINGS TODAY. HE HAS HAD A GOOD DAY. HE WALKED IN THE BENAVIDES WITH SBA X1. NO OTHER CHANGES.
--- NOTE | 2018-12-01 20:34 | NUR ---
Comfort Care: Late entry: Pt seen and evaluated by palliative care. He denies pain, denies anxiety. He is eating meals. No concerns at this time. Reviewed medications, notes.
--- NOTE | 2018-12-02 05:20 | NUR ---
SHIFT SUMMARY NO APPARENT ACUTE CHANGES NOTED SO FAR THIS SHIFT. THE PT CAME OUT OF ROOM X1 ASKING FOR A SNACK. THE PT WAS NOT ABLE TO VERBALIZE WHAT TYPE OF SNACK HE PREFERRED SO A SNAWHICH, CRACKERS AND PUDDING WERE PROVIDED. THE PT HAS APPEARED TO SLEEP COMFORTABLY MOST OF THE NIGHT WITH NO APPARENT SIGNS OF ACUTE DISTRESS. FREQUENT VISUAL CHECKS IT DOES NOT APPEAR THAT THE PT IS ABLE TO MAKE NEEDS KNOWN. WILL CONTINUE TO MONITOR.
--- NOTE | 2018-12-02 12:43 | NUR ---
PATIENT TOOK SELF TO SHOWER. TITLE VEHICLE SERVICE ATTENDANT SUPERVISED SHOWER. PATIENT IS INDEPENDENT IN THE ROOM. UNAWARE OF CARE DEFICITS/NEEDS. IN GOOD SPIRITS.
--- NOTE | 2018-12-02 12:44 | NUR ---
PATIENT IS ASLEEP IN BED DURING SHIFT REPORT.
--- NOTE | 2018-12-02 15:52 | NUR ---
PATIENT CURRENTLY ASLEEP IN BED, APPEARS COMFORTABLE.
--- NOTE | 2018-12-02 16:59 | NUR ---
PATIENT CURRENTLY ASLEEP. NO ACUTE ISSUES NOTED.
--- NOTE | 2018-12-02 18:00 | NUR ---
PATIENT AMBULATING IN HALLWAY. NOW SITTING IN ROOM EATING WITHOUT ISSUES.
--- NOTE | 2018-12-03 04:35 | NUR ---
SHIFT SUMMARY THE PT HAS APPEARED TO REST COMFORTABLY MOST OF THE NIGHT ONLY COMING OUT ROOM ONCE TO ASK FOR A SNACK, WHICH WAS PROVIDED AND THE PT APPEARED TO ENJOY. THE PT APPEARS TO BE SLEEPING COMFORTABLY AT THIS TIME. Q2H COMFORT CARE ASSESSMENTS.
--- NOTE | 2018-12-03 10:19 | NUR ---
PATIENT HAS BEEN OUT WANDERING HALLS. GIVEN SNACKS PRN. CURRENTLY SITTING IN ROOM.
--- NOTE | 2018-12-03 14:59 | NUR ---
PATIENT IS INDEPENDENT IN THE ROOM WITH FOOD AND BATHROOM NEEDS. FORGETFUL OF CARE DEFICITS. HAS BEEN UP FOR MEALS, WANDERING HALLS. IN GOOD SPIRITS.
--- NOTE | 2018-12-03 16:21 | NUR ---
PATIENT CURRENTLY ASLEEP.
--- NOTE | 2018-12-04 04:57 | NUR ---
DIRECTOR SKILLS SUMMARY NO ACUTE CHANGES THIS SHIFT. PT AAOX3, INDEPENDENT IN ROOM. REMAINS ON COMFORT CARE. PT INDEPENDENT IN ROOM. DENIES PAIN, SOB, N/V. TAKES MEDS FINE WITH WATER. PT HAS RESTED QUIETLY IN BED MAJORITY OF THE SHIFT. WILL CONTINUE TO MONITOR.
--- NOTE | 2018-12-04 16:44 | NUR ---
SHIFT SUMMARY 68 YR OLD MALE ADMITTED FOR AFIB W/RVR. DNR. INDEPENDENT IN ROOM. COMFORT CARE PATIENT. A&O X4. ROOM AIR. MECH SOFT DIET/CARDIAC DIET. HX: AFIB W/RVR, APHASIA, HTN, METH/MARIJUANA USE. AWAITING PLACEMENT. AUNT HAS POA. NO VISITORS ARE ALLOWED FOR THIS PT. ONLY A RELATIVE NAMED CL SCHWARZ IS PERMITTED VISITATION/CALLS FOR INFORMATION. CONTACT PRECAUTIONS FOR MRSA IN THE NARES.
--- NOTE | 2018-12-05 06:44 | NUR ---
SHIFT SUMMARY PT IS A 68 Y/O MALE, ADMITTED FOR AFIB WITH RVR AND CURRENTLY ON COMFORT CARE. HE IS A&O X 2, WITH OCCASIONAL CONFUSION. THE PT APPEARED TO REST COMFORTABLY THROUGH MOST OF THE NIGHT WITH NO COMPLAINTS. HOWEVER, AT APPROXIMATELY 0100, THE PT CAME OUT OF HIS ROOM, APPEARING ANXIOUS AND VERY DYSPNEIC. THE PT WAS UNABLE TO BE UNDERSTOOD AT THAT TIME, BUT KEPT TALKING ABOUT NEEDING TO "GO". THE PT WAS REDIRECTED BACK TO HIS ROOM, AND MEDICATED WITH PRN PO ATIVAN. PT SLEPT WELL THROUGH THE NIGHT AFTERWARDS. NO OTHER ACUTE CHANGES IN PT CONDITION NOTED. WILL CONTINUE TO MONITOR AND TREAT PER EMAR UNTIL HAND OFF TO DAY SHIFT.
--- NOTE | 2018-12-05 19:06 | NUR ---
SHIFT SUMMARY ROSE RESTED COMFORTABLY IN BED MOST OF THE DAY. INDEPENDENT TO THE BATHROOM. DENIED PAIN. VERY GARBLED SPEECH AND APHASIC, UNCLEAR HIS ORIENTATION. BECAME TEARFUL AND ANXIOUS IN EARLY AFTERNOON, RECEIVED PO ATIVAN TO GOOD EFFECT. GOOD APPETITE. CALL LIGHT IN REACH, [facility]
--- NOTE | 2018-12-06 06:49 | NUR ---
SHIFT SUMMARY PT IS A 68 Y/O MALE, ADMITTED FOR AFIB WITH RVR AND CURRENTLY COMFORT CARE. HE IS A&O X 2, THOUGH DEPRESSED AND TEARFUL AT TIMES. PT DENIED ANY COMPLAINTS OF PAIN, NAUSEA OR SOB, AND SLEPT WELL THROUGH THE NIGHT. NO OTHER ACUTE CHANGES IN PT CONDITION NOTED. WILL CONTINUE TO MONITOR AND TREAT PER EMAR UNTIL HAND OFF TO DAY SHIFT.
--- NOTE | 2018-12-06 12:15 | NUR ---
PT UP IN CHAIR FOR LUNCH AND TO BATHROOM. STEADY GAIT.
--- NOTE | 2018-12-06 18:45 | NUR ---
SHIFT SUMMARY COMFORT CARE. INDEPENDENT IN ROOM. DENIES ANY PAIN. RESTING IN BED THROUGHOUT DAY. GREAT APPETITE. AWAITING PLACEMENT.
--- NOTE | 2018-12-06 20:23 | NUR ---
Comfort Care: Pt is smiling in his room. Denies pain. Does not have questions, concerns. Spoke to Anjelica, nurse. She reports that he has been ambulating in room without difficulty. Has a good appetite. Does not need modifying on medications and symptoms are managed.
--- NOTE | 2018-12-07 05:51 | NUR ---
SHIFT SUMMARY PT IS A 68 Y/O MALE, ADMITTED FOR AFIB WITH RVR, AND CURRENTLY ON COMFORT CARE. HE IS A&O X 2, WITH PERIODS OF INCREASED CONFUSION. PT DENIED ANY COMPLAINTS OF PAIN, NAUSEA OR SOB, AND SLEPT WELL THROUGH THE NIGHT. NO ACUTE CHANGES IN PT CONDITION NOTED. WILL CONTINUE TO MONITOR AND TREAT PER EMAR UNTIL HAND OFF TO DAY SHIFT.
--- NOTE | 2018-12-07 17:27 | NUR ---
SHIFT SUMMARY NO ACUTE CHANGES TO PRESENT THIS SHIFT. PT RESTING QUIETLY DURING SHIFT REPORT, NOT WANTING TO BE BOTHERED. UP INDEPENDENTLY IN RM WALKING AROUND. PT FOUND WITH EMESIS BAG AFTER LUNCH. SR. MANAGER'S REPORTED PT VOMITING. ZOFRAN GIVEN PER EMAR, BUT PT SEEN SUCKING AIR OUT OF BAG RATHER THAN VOMITING INTO BAG. ATTEMPTED TO EDU PT AND REMOVE BAG, BUT PT BECAME AGITATED AND REFUSED. PT THEN WENT AND SAT DOWN ON BED, STILL BREATHING IN AND OUT OF BAG. PT RECENTLY SITTING AT BS WAITING FOR DINNER TO ARRIVE. NO C/O. DENIED PAIN, DENIED NEEDS. PT PRESENTLY ON COMFORT CARE, WAITING FOR PLACEMENT. CALL LT IN REACH.
--- NOTE | 2018-12-08 07:27 | NUR ---
a+o to self and place, very excited about a helecopter, no IV, room air, cooperative with care
--- NOTE | 2018-12-08 16:43 | NUR ---
SHIFT SUMMARY NO ACUTE CHANGES TO PRESENT THIS SHIFT. PT HAS BEEN INDEPENDENT IN . SLEEPING MOST OF THE DAY. DENIED NEEDS. SOME CONFUSION. EATING AND DRINKING WELL. NO C/O PAIN OR DISTRESS. WAKES FOR CARE IF NEEDED. RICARDO TO SEE PT, BUT FOUND SLEEPING. CALL LT IN REACH.
--- NOTE | 2018-12-09 07:21 | NUR ---
a+o at times confused and asphasic at others, labile, call light in reach no major negative medical changes during shift, resting comfortably and responding appropriatly when doing bsr with oncomming day shift, no IV states the treatment for pain in admn were successful
--- NOTE | 2018-12-09 09:00 | NUR ---
PT AMICABLE. SOMEWHAT GARBLED SPEACH, ABLE TO MAKE BASIC NEEDS KNOWN. DENIES PAIN AT THIS TIME. H/R REG, NO MURMER NOTED. LUNGS CLEAR, RESP EASY, UNLABORED. ON R.A. INDEPENDANT IN ROOM. BED IN LOW POSITION, CALL LITE IN REACH, NO OTHER CONCERNS AT THIS TIME.
--- NOTE | 2018-12-09 17:54 | NUR ---
ROSE HAS BEEN TO BENAVIDES SEVERAL TIMES TODAY. TALKING TO STAFF AND REMAINS PLEASANT. WALKS INDEPENDANTLY. NO C/O PAIN. TOOK SHOWER TODAY. NO OTHER CONCERNS AT THIS TIME. BED IN LOW POSITOIN, CALL LITE IN REACH,
--- NOTE | 2018-12-10 05:52 | NUR ---
SHIFT SUMMARY PT REMAINED IN BED MOST OF THE SHIFT. AMBULATES INDEPENDENTLY IN HIS ROOM. STEADY ON HIS FEET. CONTINUES TO HAVE APHASIA, HAVING A LOT OF DIFFICULTY FINDING HIS WORDS AND BECOMING EMOTIONAL ABOUT IT AT TIMES. PT DENIES ANY PAIN OR DISCOMFORT. APPEARS COMFORTABLE THROUGHOUT THE NIGHT. DID NOT REQUIRE ANY PRN MEDICATIONS. WILL CONTINUE TO MONITOR.
--- NOTE | 2018-12-10 09:44 | NUR ---
FAMILY CALL PLACED TO PT'S AUNT CL, , SHE IS ON THE LIST OF CONTACTS WE CAN SPEAK WITH
--- NOTE | 2018-12-10 16:28 | NUR ---
Pt visit this afternoon. Pt resting in bed and denies pain at this time. Offered gentle voice and therapeutic touch. Pt appears comfortable. Pt still experiencing expressive aphasia. Asked Pt if he is comfortable and he states yes. Discussed with Pt if he is experiencing depression and he states yes and attempts to converse regarding this subject but due to his expressive aphasia Pt becomes mildly frustrated. Suggested to watch television to help with distraction. Instructed Pt when he wants the television on to request the nurse. At this point in visit, Pt closes his eyes and this RN ended visit. Spoke with bedside nurse Pooja prior to visit and she reports Pt appears depressed. No other concerns reported at this time. Will review medications for depression. Palliative Care will remain available.
--- NOTE | 2018-12-10 17:08 | NUR ---
SUMMARY PT RESTING QUIETLY IN BED, WAKES EASILY, HAS DENIED ANY PAIN T/O THE DAY, HAS HAD A FEW VISITORS FROM SPIRITUAL CARE AND PALLIATIVE CARE, NO COMPLAINTS, NO ACUTE CHANGES, WILL CONT TO MONITOR
--- NOTE | 2018-12-11 03:56 | NUR ---
SHIFT SUMMARY PT CONTINUES TO HAVE DIFFICULTY WITH SPEECH. BECOMES UPSET WHEN ATTEMPTING TO FIGURE OUT WHAT PT IS TRYING TO SAY. CRIES AT TIMES WHEN UNABLE TO EXPRESS HIMSELF. PT FOUND ONCE THIS EVENING LAYING SOMEWHAT SIDEWAYS ON THE BED. MAKING GROANING NOISES. APPROACHED PT AND ASKED IF HE WAS OKAY. ASKED PT IF HE NEEDED ANYTHING OR IF HE WAS IN PAIN. PT DENIED NEEDING ANYTHING BUT DID POINT TO HIS STOMACH WHEN ASKED IF HE WAS IN PAIN. PT AGREED TO TAKE SOME MEDICATION. MEDICATED W/ 10 MG ROXANOL AND 1 MG PO ATIVAN. PT CALMED AFTER THIS AND RESTED WELL THE REMAINDER OF THE NIGHT. UP INDEPENDENTLY IN ROOM TO USE THE RESTROOM.
--- NOTE | 2018-12-11 10:13 | NUR ---
PT QUIET IN HIS ROOM, SLEEPS WHEN LEFT ALONE, WAKES EASILY, DENIES PAIN, STILL HAS SOME EXPRESSIVE APHASIA
--- NOTE | 2018-12-11 12:21 | NUR ---
Pt visit this afternoon. Pt just finished in the shower and is currently eating lunch. Pt denies pain at this time. When asked about anxiety he nods his head back and forth indicating yes. Offered medication for anxiety and Pt shakes his head from side to side indicating no. Pt indicates feeling better after taking a shower. Spoke with bedside nurse Pooja and she reports no concerns at this time. Discussed Pt's depression and will continue to monitor for effectiveness of antidepressant. Pooja reports Pt was tearful with machinist 2nd shift but is doing better today. Palliative Care will remain available.
--- NOTE | 2018-12-11 13:05 | NUR ---
FACE SHEET FAXED TO ER [phone] FOR [facility]
--- NOTE | 2018-12-11 17:41 | NUR ---
SUMMARY PT SITTING UP IN BED EATING DINNER, PT HAS BEEN PLEASANT AND COOPERATIVE WITH CARE, UP WALKING IN THE HALLS OCC, DENIES ANY PAIN, REMAINS ON COMFORT CARE, WILL CONT TO MONITOR
--- NOTE | 2018-12-12 05:45 | NUR ---
SHIFT SUMMARY NO ISSUES NOTED. PT HAD SOME INCREASED ANXIETY THAT WAS TX PER EMAR. PT HAS SLEPT WELL T/O SHIFT. NO REPORTS OF PAIN OR DISCOMFORT. CALL LIGHT IN REACH.
--- NOTE | 2018-12-12 07:45 | NUR ---
PT. SLEEPING BREATHING EVEN AND SHALLOW.
--- NOTE | 2018-12-12 09:45 | NUR ---
PT. STILL SLEEPING
--- NOTE | 2018-12-12 11:30 | NUR ---
PT. SITTING ON EDGE OF BED EATING BREAKFAST. DENIES PAIN N/V OR DIARRHEA
--- NOTE | 2018-12-12 12:49 | NUR ---
PT. SLEEPING ONCE AGAIN
--- NOTE | 2018-12-12 15:30 | NUR ---
PT. LYING QUIETLY , DENIES PAIN, NAUSEA OR THE NEED OF ANYTHING. PT HAS A FLAT AFFECT.
--- NOTE | 2018-12-12 17:30 | NUR ---
NO CHANGE IN PT. CONDITION TODAY HAS SLEPT MOST OF THE DAY, DID EAT MEALS. DENIES PAIN. A&O
--- NOTE | 2018-12-13 04:34 | NUR ---
SHIFT SUMMARY PT HAS SLEPT T/O SHIFT WITHOUT ISSUE. PT CURRENTLY SLEEPING IN NO DISTRESS. CALL LIGHT IN REACH.
--- NOTE | 2018-12-13 07:45 | NUR ---
PT. WALKED OUT INTO BENAVIDES AND WANTED TO KNOW WHEN DINNER WAS READY, LET HIM KNOW BREAKFAST WOULD BE HERE SOON. WALKED BACK INTO ROOM AND CLIMBED INTO BED.
--- NOTE | 2018-12-13 12:06 | NUR ---
PT. SLEEPING AT THIS TIME , NO COMPLAINTS OF PAIN AT THIS TIME.
--- NOTE | 2018-12-14 05:01 | NUR ---
SHIFT SUMMARY PT SLEPT T/O MOST OF SHIFT. PT DID GET UP AND WANT SNACK. NO REPORTS OF PAIN OR DISCOMFORT. PT CURRENTLY SLEEPING IN NO DISTRESS. CALL LIGHT IN REACH.
--- NOTE | 2018-12-14 16:45 | NUR ---
SUMMARY- PT ALERT TO SELF AND PLACE, PLEASANT AND COOPERATIVE WITH STAFF. STEADY ON FEET, USES BATHROOM INDEPENDANTLY. TOLERATING FOOD AND FLUIDS. DENIES PAIN. ONE EPISODE ABOUT 1530 PT SAT DOWN ON THE FLOOR AND BEGAN CRYING, AGREED HIS STOMACH HURT AND HE WAS MENTALLY SAD AND UPSET. MEDICATED WITH ROXONOL AND PT NAPPED ON THE GROUND WITH PILLOWS, DECLINING HELP FROM STAFF TO GET UP OFF THE FLOOR UNTIL AN HOUR AND HALF LATER. STOOD UP WITH STAFF AND BACK TO HIS BED, AWAKE AND STATES PAIN RELEIVED.
--- NOTE | 2018-12-14 19:22 | NUR ---
review with palliative team strategies of care for mr naikn.
--- NOTE | 2018-12-15 00:11 | NUR ---
VALERIAEINT DECLINED TO BE REPOSITIONED. PATIENT REQUESTED "ATIVAN, TO HELP HER SLEEP" AFTER CHECKING EMAR I INFORMED THE PATIENT THAT SHE NO LONGER HAD ATIVAN ORDERED.
--- NOTE | 2018-12-15 08:58 | NUR ---
PT IS SITTING UP ON THE SIDE OF THE BED AT THIS TIME EATING BREAKFAST, DENIES ANY PAIN APPERARS TO BE BREATHING EASILY ON RA, REPROTS SLEEPING WELL LAST NIGHT
--- NOTE | 2018-12-15 12:07 | NUR ---
Pt visit this AM. Pt sitting in chair at the end of hallway looking out the window. Discussed the view and Pt appears to be enjoying. Pt denies pain at this time. On occasion Pt appears frustrated due to expressive aphasia. Discussed the possibilty of using a communication board and Pt expresses interest as evidenced by shaking his head up and down indicating yes. Spoke with Pt's bedside nurse Balaji and he reports no concerns at this time. Plan is to conference with [facility] regarding communication board. Awaiting her call back. Palliative Care will remain available.
--- NOTE | 2018-12-15 12:13 | NUR ---
PT UP IN THE BENAVIDES LOOKING OUT THE WINDOW AT THIS TIME, APPEARS TO BE BREATHING EASILY ON RA AT THIS TIME, DENIES ANY PAIN
--- NOTE | 2018-12-15 16:21 | NUR ---
PT HAS BEEN UP MOVING ABOUT HIS ROOM AND THE BENAVIDES APPEARS TO BEBREATHING EASILY ON RA, DENIES PAIN
--- NOTE | 2018-12-16 06:09 | NUR ---
SHIFT SUMMARY PT IS A 68 Y/O MALE, ORIGINALLY ADMITTED FOR AFIB WITH RVR, AND CURRENTLY ON COMFORT CARE. HE IS A&O X 2, WITH OCCASIONAL EPISODES OF CRYING AND SADNESS. PT DENIED ANY COMPLAINTS OF PAIN, NAUSEA OR SOB, AND SLEPT WELL DURING THE NIGHT. NO ACUTE CHANGES IN PT CONDITION NOTED. WILL CONTINUE TO MONITOR AND TREAT PER EMAR UNTIL HAND OFF TO DAY SHIFT.
--- NOTE | 2018-12-16 09:40 | NUR ---
PT IS LYING ON THE BED APPEARS TO BE SLEEPING AT THIS TIME
--- NOTE | 2018-12-16 09:41 | NUR ---
PT LYING ON HIS BED AWAKE DENIES ANY PAIN DENIES ANY NEEDS AT THIS TIME APPEARS TO BE BREATHING EASILY ON RA
--- NOTE | 2018-12-16 11:23 | NUR ---
PT IS UP IN HIS ROOM STEADY ON HIS FEET, DENIES ANY NEEDS
--- NOTE | 2018-12-16 16:31 | NUR ---
PT CONTINUES TO DENIE ANY PAIN APPEARS TO BE BREATHING EASILY ON RA, CALL LIGHT IN REACH
--- NOTE | 2018-12-17 06:42 | NUR ---
SHIFT SUMMARY PT ON CC. INDEPENDENT IN ROOM. PLEASANT COOPERATIVE. HE SLEPT ON AND OFF T/O NOC.
--- NOTE | 2018-12-17 16:48 | NUR ---
PT AO AND COOPERATIVE OF CARE. PT HAS BEEN NAPPING ALL DAY AND DENIES ANY PAIN. INDEPENDENT TO RESTROOM. WILL CONTINUE TO MONITOR.
--- NOTE | 2018-12-18 06:39 | NUR ---
SHIFT SUMMARY PT INDEPENDENT IN ROOM. HE WAS ABLE TO SLEEP T/O NIGHT. STILL HAVING HARD TIME COMMUNICATING AND FINDING THE WORDS.
--- NOTE | 2018-12-18 14:47 | NUR ---
Met with Mor this afternoon in his room. He is awake and alert. He denies pain. He states that he has nausea at times but doesn't want any medications to treat the nausea. He has difficulty with expressive aphasia and this frustrates him when he is unable to say the word he wants to say. He reports his appeptite is ok, he doesn't like hospital food. He was able to write the word hospital when attempting to tell me about his appetite. He is easily redirectable when he gets frustrated. He had no requests during my visit. Call light is in his reach. He is able to get OOB without assist and appears to be steady on his feet. [facility] is working on placement.
--- NOTE | 2018-12-18 17:39 | NUR ---
SHIFT SUMMARY PT IND IN ROOM. DENIES NEEDS AT THIS TIME. PT STATES HE IS COMFORTABLE & WITHOUT PAIN. DENIES NEEDS FOR PAIN MEDICATION. PT EMOTIONAL EPISODES THIS SHIFT. WILL CONTINUE TO MONITOR UNTIL TURNOVER IS COMPLETE.
--- NOTE | 2018-12-19 05:51 | NUR ---
SUMMARY: PT SEEMS TO BE A/O BUT IS APHASIC AND HAS DIFFICULTY VOCALIZING NEEDS. HE DID BECOME TEARFUL EXPRESSING FRUSTRATION W/SITUATION VIA THE PICTURE CHART IN HIS ROOM. HE STATED HE HADN'T HAD VISIT FROM HIS GIRLFRIEND AND WOULD RATHER " THEN NOT FUNCTION". REASSURANCE AND SUPPORT OFFERED AND PT CHEERED UP A BIT. [facility] IS CONSULTING. HE IS INDEPENDENT IN HIS ROOM AND REMAINS ON COMFORT CARE. NO PRN MEDS WERE REQUIRED. HE DENIED PAIN, NAUSEA AND ADDITIONAL COMPLAINTS. PT IS CONFIDENTIAL AND CANNOT HAVE VISITORS W/O STAFF SUPERVISION. GUARDIANSHIP/PLACEMENT PENDING. NO ACUTE CHANGES, VSS AND AFEBRILE. WCTM AND REPORT TO DAY RN.
--- NOTE | 2018-12-19 14:11 | NUR ---
PALLITIVE IN WITH PT SUSAN FROM PALLITIVE CARE IN VISITING WITH PT.
--- NOTE | 2018-12-19 14:12 | NUR ---
SUSAN FROM PALLITIVE IN WITH PTMichelle
--- NOTE | 2018-12-19 14:30 | NUR ---
Pt visit this afternoon. Pt is resting in bed with his eyes close upon arrival. He opens his eyes with calm gentle voice. Pt denies pain and dyspnea at this time. Pt attempts communication and due to expressive aphasia difficult to understand. Able to understand some of what Pt is attempting to communicate. Pt requests to speak with his Aunt Martha and would like her phone number. He also request palliative care's phone number. Gave phone numbers to Pt. Due to his difficulty with communication, Pt develops anxiety as evidenced by frustration and tears. Bedside nurse Maribel offers medication for anxiety and Pt accepts. No other concerns reported at this time. Spoke with bedside nurse López and discussed case. Palliative Care will remain available.
--- NOTE | 2018-12-19 17:30 | NUR ---
SHIFT SUMMARY PT MEDICATED FOR ANXIETY ONCE THIS SHIFT. PT CONTINUES TO DENY PAIN. NO OTHER CHANGES AT THIS TIME. WILL CONTINUE TO MONITOR UNTIL TURNOVER IS COMPLETE.
--- NOTE | 2018-12-20 06:25 | NUR ---
SHIFT SUMMARY NO CHANGES OVERNIGHT PT HAS REMAINED AT BASELINE. HE DENIES PAIN OR NEEDS T/O THE NIGHT. INDEPENDENT IN THE ROOM. COMFORT ASSESSED T/O SHIFT. PT PLESANT AND COOPERATIVE WITH CARE. WILL CONTINUE TO MONITOR AND REPORT TO ONCOMING RN.
--- NOTE | 2018-12-20 15:36 | NUR ---
Pt resting in bed with his eyes closed and appears comfortable. No S/S of distress at this time. Spoke with bedside nurse Sarah and she reports medicating Pt for neck pain with Teylenol and appears to be beneficial. No other concerns reported at this time. Palliative Care will remain available.
--- NOTE | 2018-12-20 17:24 | NUR ---
PT HAS BEEN RESTING IN BED ALL DAY. PT WILL EAT THEN RETURN HIS TRAY. MANY TIMES HE DOESN'T TALK MUCH IN ROOM. PT WAS HAVING SOME MUSCLE PAIN IN HIS NECK TODAY AND WAS TREATED PER EMAR. THIS SEEMS TO HAVE BEEN EFFECTIVE. PT SLEEPING AT THIS TIME WILL CONTINUE TO MONITOR.
--- NOTE | 2018-12-21 05:00 | NUR ---
SHIFT SUMMARY PT HAD AN EPISODE AT THE BEGINNING OF THE SHIFT WHERE HE BECAME EXTREMELY AGIATATED AND ANXIOUS AROUND 2039. HE BEGAN CLINCING HIS FIST AND BANGING HIS HEAD ON THE BED FRAME. PILLOW PLACED AROUND BED RAILING AND PT MOVED TO THE CENTER OF THE BED TO PROTECT HIM FROM HARMING HIMSELF. PT WAS RESPONDING TO ME BUT IT WAS MINIMAL DUE TO HIS APHASIA. DURING THIS EPISODE HE WAS ALSO GRABBING HIS ARM, AND STOMACH IF HE WAS HAVING PAIN. PT WAS MOANING OUT. 10 MG OF ROXANOL GIVEN AND 1 MG OF ATIVAN GIVEN WHICH PT RESPONDED WELL TO. PT HAS NOT HAD ANY OTHER EPISODES SINCE THAT TIME AND HAS BEEN PLESANT AND COOPERATIVE WITH CARE AND HAS DENIED NEEDS. PT HAD A SANDWHICH AND PUDDING, AND HAS WATCHED TV OFF AND ON. COMFORT ASSESSED T/O SHIFT. WILL CONTINUE TO MONITOR AND REPORT TO ONCOMING RN.
--- NOTE | 2018-12-21 10:38 | NUR ---
PT ATE 100% OF BREAKFAST AND THEN RETURNED TO BED AND APPEARS TO BE SLEEPING. PT DENIES PAIN, SOB, N/V.
--- NOTE | 2018-12-21 14:12 | NUR ---
PT HAS BEEN SLEEPING INBETWEEN MEALS. PT DENIES PAIN, N/V, SOB. NO S/SX OF DISCOMFORT OR DISTRESS.
--- NOTE | 2018-12-21 15:46 | NUR ---
Pt visit this afternoon. Pt resting in bed with his eyes closed but responds with gentle voice. Pt denies pain and anxiety at this time. Pt appears tired and sleepy as evidenced by closing his eyes often. Ended visit to allow Pt to rest. Spoke with bedside nurse Marco and he reports no concerns at this time. Palliative Care will remain available.
--- NOTE | 2018-12-21 18:33 | NUR ---
SHIFT SUMMARY. PT SLEEPING MOST OF THE SHIFT, WITHDRAWN. PT OFFERED WALKS IN THE BENAVIDES, WHICH HE DID ONCE. PT ALSO WAS OFFERED SHOWER AND DECLINED. PT DENIED PAIN, SOB, N/V. PT ATE WELL WITH BREAKFAST AND LUNCH, PT REFUSED DINNER. PT DENIES PAIN, SOB, N/V. NO S/SX OF DISCOMFORT OR DISTRESS.
--- NOTE | 2018-12-22 04:57 | NUR ---
Shift summary: Pt has had a good night. No c/o discomfort. Pt has slept most of shift . Pt up ambulating in halls. Pt has been alert , oriented and appropriate for the most part. speech is sometimes difficult to understand. Pt on comfort care because of cardiac issues but has not had shortness of breath during the night. No prn meds needed.
--- NOTE | 2018-12-22 10:16 | NUR ---
PT DENIES PAIN, SOB, N/V. NO S/SX OF DISCOMFORT OR DISTRESS.
--- NOTE | 2018-12-22 17:08 | NUR ---
Pt visit this afternoon. Pt is resting in bed with his eyes closed and appears comfortable. Did not disturb Pt at this time. Palliative Care will remain available.
--- NOTE | 2018-12-22 18:00 | NUR ---
PT SLEPT MOST OF SHIFT INBETWEEN MEALS. PT HAS VERY GOOD MEAL INTAKE. PT DENIED PAIN, SOB, AND N/V. NO S/SX OF DISTRESS OR DISCOMFORT DURING SHIFT. [facility] EVALUATED PT TODAY. PT WITHDRAWN AND STAYED IN ROOM, MINIMAL INTERACTION WITH STAFF. NO NEW CHANGES OR CONCERNS.
--- NOTE | 2018-12-23 02:32 | NUR ---
Pt woke up very anxious. Pt having very hard time expressing himself. Very anxious. Wanted me to check his blood pressure. BP was 165/109 on the left and 128/97 on the right. Pt given 2 mg of ativan and 10 mg roxinol.
--- NOTE | 2018-12-23 04:09 | NUR ---
Shift summary: Pt had one episode of anxiety during shift. pt given roxanol and ativan. Pt able to sleep rest of shift. Pt up ad agus. Pt has a very hard time expressing himself. He knows what he wants to say but can't get it to come out of his mouth.
--- NOTE | 2018-12-23 12:07 | NUR ---
COMFORT CARE PATIENT SLEEPING MOST OF MORNING. DENIES ANY NEEDS. WOKE UP AND HAD SOME BREAKFAST. PATIENT INDEPENDENT IN ROOM. CALL LIGHT IN REACH.
--- NOTE | 2018-12-23 14:16 | NUR ---
Pt visit this afternoon. Pt resting in bed upon arrival. Pt attempts to engage in conversation and becomes frustrated due to his expressive aphasia. After several attempts Pt is able to communicate a few words. Pt states he messed up. After several more attempts between words and hand communication Pt describes messing up due to not taking his heart medications. Pt becoming more frustrated during visit due to difficulty with communication. Pt states "I'm freaking out". Suggested to end visit and initialy Pt continues to attempt communication. Pt is agreeable to end visit to allow him to rest. Spoke with bedside nurse Cass and discussed visit. Cass will monitor Pt and if anxiety continues she will offer Ativan. Palliative Care will remain available.
--- NOTE | 2018-12-23 17:09 | NUR ---
COMFORT CARE SHIFT SUMMARY PATIENT MEDICATED X 1 FOR ABDOMINAL PAIN THIS SHIFT. PATIENT INDEPENDENT IN ROOM. PATIENT SITTING IN HALLWAY BY WINDOW THIS AFTERNOON. DENIES NAUSEA AND SHORTNESS OF BREATH.
--- NOTE | 2018-12-24 04:59 | NUR ---
SHIFT SUMMARY: PT IS ALERT WITH MINIMAL VERBAL RESPONSE. PT IS CALM AND COOPERATIVE WITH CARE. PT IS INDEPENDENT IN THE ROOM. PT OUT IN THE BENAVIDES ON ONE OCCASION. PT DENIES PAIN, NAUSEA, VOMITING, AND SOB. PT SLEPT MUCH OF THE NIGHT. NO ACUTE CHANGES OR COMPLICATIONS. WILL REPORT TO DAY NURSE.
--- NOTE | 2018-12-24 07:06 | NUR ---
COMFORT CARE PATIENT SLEEPING WITH NO SIGNS OF DISTRESS. FACE RELAXED, BREATHING EVEN AND UNLABORED.
--- NOTE | 2018-12-24 09:45 | NUR ---
PATIENT WAS OFFERED A SHOWER AND DECLINED AT THIS TIME AND STATED HE WOULD TAKE ONE LATER TODAY. I WILL CHECK BACK IN WITH HIM LATER TODAY.
--- NOTE | 2018-12-24 17:56 | NUR ---
COMFORT CARE SHIFT SUMMARY PATIENT DENIED PAIN, NAUSEA, AND SHORTNESS OF BREATH THIS SHIFT. PATIENT NAPPED AND WAS UP FOR MEALS MOST OF THIS SHIFT. PATIENT CAME IN THE BENAVIDES TO SOCIALIZE BRIEFLY THIS EVENING. CALL LIGHT IN REACH, WILL CONTINUE TO MONITOR.
--- NOTE | 2018-12-24 20:55 | NUR ---
ASSUMED CARE OF THE PATIENT: ROSE WAS SLEEPING IN HIS ROOM, AWAKENED EASILY VIA TOUCH. MEDS GIVEN PER EMAR. DENIED ANY PAIN OR DISCOMFORT. LUNG SOUNDS ARE CLEAR THROUGHOUT RESP EVEN AND UNLABORED, HR REGULAR, BT X 4. SKIN PWD, NO BREAKDOWN NOTED. NO DISTRESS NOTED. WILL CONTINUE TO MONITOR.
--- NOTE | 2018-12-24 23:22 | NUR ---
PATIENT CONTINUES TO SLEEP WITH NO SIGNS OF DISTRESS NOTED.
--- NOTE | 2018-12-25 01:56 | NUR ---
patient continues to sleep with no changes.
--- NOTE | 2018-12-25 03:53 | NUR ---
NO CHANGES AT THIS TIME, CALL LIGHT IN REACH.
--- NOTE | 2018-12-25 06:19 | NUR ---
SHIFT SUMMARY: ROSE HAS REMAINED SLEEPING ALL NIGHT LONG AND THIS MORNING. HE IS EASILY AWAKENED BY TOUCH. HE HAD NO ACUTE CHANGES, TOOK MEDS PER EMAR. STAYED COMFORTABLE ALL NIGHT. WILL REPORT TO DAY SHIFT RN.
--- NOTE | 2018-12-25 10:29 | NUR ---
COMFORT CARE PATIENT NAPPING IN BED. UP FOR BREAKFAST. DENIES PAIN, NAUSEA, AND SHORTNESS OF BREATH. CALL LIGHT IN REACH.
--- NOTE | 2018-12-25 16:58 | NUR ---
SHIFT SUMMARY PATIENT NAPPED MOST OF DAY. UP FOR MEALS THEN BACK TO BED. DENIES PAIN, NAUSEA, AND SHORTNESS OF BREATH. CALL LIGHT IN REACH.
--- NOTE | 2018-12-25 19:20 | NUR ---
ASSUMED CARE OF THE PATIENT: ROSE WAS RESTING IN HIS ROOM COMFORTABLE IN HIS BED. HE HAD NO CONCERNS OR PAIN TO NOTE. HAD NO NEEDS OR WANTS AT THIS TIME. WILL CONTINUE TO MONITOR.
--- NOTE | 2018-12-25 23:40 | NUR ---
PATIENT RESTING COMFORTABLY, NO SIGNS OF DISTRESS NOTED
--- NOTE | 2018-12-26 05:37 | NUR ---
SHIFT SUMMARY: PATIENT SLEPT THROUGHOUT THE ENTIRE SHIFT WITH NO ACUTE CHANGES OR CONCERNS FOR DISTRESS. HE TOOK HIS MEDS AT BEGINNING OF THE SHIFT AND WENT BACK TO BED. WILL REPORT TO DAY SHIFT RN.
--- NOTE | 2018-12-26 18:39 | NUR ---
NO ACUTE CHANGES, PT REMAINS ON COMFORT CARE, NO C/O PAIN TODAY. PT SPENT MOST OF THE DAY SLEEPING, DID WAKE AND EAT HIS LUNCH AND WALK AROUND THE ROOM FOR A SHORT WHILE. SLEEPING AGAIN AT THIS TIME. WILL CONTINUE TO MONITOR AND REPORT TO ONCOMING RN
--- NOTE | 2018-12-26 20:09 | NUR ---
12/26/182009 PT LAYING ON RIGHT SIDE. AWAKENED FOR ASSESSMENT. PT DENIED ANY DISCOMFORT OR OTHER PROBLEMS. LIGHTS TURNED OFF FOR COMFORT. DENIED ANY NEEDS.
--- NOTE | 2018-12-26 22:48 | NUR ---
12/26/18 2215 PT AWAKENED FOR PM MED. DENIES ANY PAIN OR S/S. UP TO BATHROOM TO VOIDING AND STATES HE HAD BM TODAY. PUDDING GIVEN FOR SNACK.
--- NOTE | 2018-12-27 01:06 | NUR ---
12/27/18 0015 Pt sleeping well.No distress noted.
--- NOTE | 2018-12-27 17:28 | NUR ---
REMAINS ON COMFORT CARE, NO C/O PAIN OR OTHER DISCOMFORT, HE HAS BEEN SLEEPING MOST OF THE SHIFT, WAKES FOR MEALS. STILL WAITING FOR PLACEMENT. NO ACUTE CHANGES NOTED, WILL CONTINUE TO MONITOR AND REPORT TO ONCOMING RN
--- NOTE | 2018-12-27 20:28 | NUR ---
12/27/181999 UP WALKING IN HALLS. DENIES ANY DISCOMFORT OR S/S. HAS PROBLEMS WITH WORD FORMATION AND EXPRESSING HIMSELF. ENCOURAGED TO TRY DIFFERENT WORDS AND EVENTUALLY IS ABLE TO GET NEEDS MET.
--- NOTE | 2018-12-27 22:35 | NUR ---
12/27/18 7683 SLEEPING WITHOUT DISTRESS.
--- NOTE | 2018-12-28 04:18 | NUR ---
12/28/18 0410 PT SLEEPING WELL AT THIS TIME ON RT SIDE. NO DISTRESS NOTED.
--- NOTE | 2018-12-28 06:02 | NUR ---
12/28/18 0555 PT STILL SLEEPING WITHOUT DISTRESS. UNEVENTFUL NIGHT.
--- NOTE | 2018-12-28 11:01 | NUR ---
Pt visit this AM. Pt is resting in bed with his eyes closed. Pt appears comfortable with no S/S of distress at this time. This RN did not disturb Pt at this time. Spoke with bedside nurse Argelia and she reports no concerns at this time. [employer] worker enters Pt's room and assess's Pt. She reports at this time Pt does not qulify for Medicaid due to low risk of safety concerns.
--- NOTE | 2018-12-28 12:43 | NUR ---
NO COMPLAINTS. PATIENT IS EATING LUNCH AT THIS TIME
--- NOTE | 2018-12-28 17:08 | NUR ---
PATIENT IS ALERT AND ORIENTED TO SELF AND COOPERATIVE WITH CARE. NO COMPLAINTS OF PAIN. A NEWSPAPER WAS GIVEN TO THE PATIENT TO KEEP HIM OCCUPIED. COMFORT CARE ASSESSMENTS COMPLETED Q2H. WILL CONTINUE TO MONITOR
--- NOTE | 2018-12-29 00:37 | NUR ---
12/28/18 2340 FIRE DRILL ALARM SOUNDING AND WOKE UP PT. ANXIOUS AND SCARED OF ALARMS. REASSURED AND ASSISTED BACK TO ROOM.
--- NOTE | 2018-12-29 01:59 | NUR ---
12/29/18 0200 SLEEPING WITHOUT DISTRESS.
--- NOTE | 2018-12-29 04:25 | NUR ---
12/29/18 0400 AWAKE AND C/O HUNGER. SOUP,YOGURT AND JUICE GIVEN. HE LAID BACK IN BED AFTERWARDS. NO OTHER COMPLAINTS.
--- NOTE | 2018-12-29 17:14 | NUR ---
SUMMARY PT RESTING QUIETLY IN BED, HAS BEEN INDEPENDENT IN THE ROOM, IS ON COMFORT CARE, HAS NO S/S OF DISTRESS, WILL CONT TO MONITOR
--- NOTE | 2018-12-30 04:29 | NUR ---
SHIFT SUMMARY: 68 Y/O MALE RESTED COMFORTABLY ALL SHIFT, STILL ON COMFORT CARE--NO MEDS REQUIRED, NO PAIN OR NAUSEA NOTED, INDEPENDENT IN ROOM, BED LOW POSITION, CALL LIGHT AT SIDE.
--- NOTE | 2018-12-30 14:19 | NUR ---
Pt visit this afternoon. Pt denies pain at this time. Pt attempts to engage in conversation and has difficulty due to expressive aphasia. Pt becomes frustrated at times. Pt motions with his finger and swipes it across his neck and after several attempts with verbal communication Pt states "I want to kill myself". Explored reasoning and after several attempts Pt indicates feeling is due to not being able to care for himself. Pt continues to experience frustration due to expressive aphasia. Offered to walk in the velazquez for distraction and Pt is agreeable. After walking the velazquez a couple of times with stopping to look at the fountain at end of velazquez this RN escorted Pt back to his bed. Pt becomes tearful and begins to wail. Offered emotional support and assist with him to lay in bed. Bedside nurse Pooja offers Ativan for anxiety. Pt currently resting in bed. Discussed visit with Pooja including Pt's statement of wanting to kill himself. Discussed safety plan including removing any items Pt can harm himself. Will contact hospitalist and relay concerns. Palliative Care will remain available.
--- NOTE | 2018-12-30 18:07 | NUR ---
SUMMARY PT RESTING QUIETLY IN BED, PT HAD AN EPISODE OF ANXIETY AND CRYING TODAY, HE EXPRESSED A DESIRE TO KILL HIMSELF TO THE PALLIATIVE CARE RN, PT PLACED IN SUICIDE PRECAUTIONS, PT MED PER EMAR WITH ATIVAN, PT CONT WITH DIFFICULTY FINDING HIS SPEECH, COOPERATIVE WITH CARE FOR THE MOST PART, NO ACUTE CHANGES, WILL CONT TO MONITOR
--- NOTE | 2018-12-30 23:12 | NUR ---
PT ON SUICIDAL PRECAUTIONS WITH CAMERA APPLIED AND OBSERVED BY STAFF, DENIES SUICIDAL IDEATIONS AT THIS TIME, VERY QUIET AND WITHDRAWN AT TIMES WITH VOICE LOW MONOTONE NOTED.
--- NOTE | 2018-12-31 04:13 | NUR ---
SHIFT SUMMARY: 68 Y/O MALE RESTED COMFORTABLY ALL SHIFT, NO SUICIDAL IDEATIONS NOTED, CHECKED FREQUENTLY, SUICIDAL PRECAUTIONS ONGOING, DENIES PAIN OR NAUSEA, COMFORT CARE, BED LOW POSITION, CALL LIGHT AT SIDE.
--- NOTE | 2018-12-31 15:25 | NUR ---
Pt resting in bed with his eyes closed and appears comfortable. No S/S of distress at this time. Spoke with bedside nurse Joy and she reports Pt became frustrated and axious due to difficulty communicating. Ativan was offered and is managing symptoms at this time. Palliative Care will remain available.
--- NOTE | 2018-12-31 19:28 | NUR ---
SHIFT SUMMARY- PT ALERT AND ORIENTED. PT HAS DIFFICULTY SPEAKING TO PEOPLE AND THIS CAUSES ANXIETY. MEDICATED ONCE FOR ANXIETY WITH PO ATIVAN. PT TOOK MEDICATION WILLINGLY HE IS VERY PLEASENT, ON SUICIDE PRECAUTIONS AT THIS TIME. PT DID BECOME TEARFUL WHEN HIS ANXIETY WAS AT ITS PEAK. PT SMILED AND WAS WILLING TO LAUGH WITH STAFF LATER IN THE SHIFT. PT DENIES ANY PAIN OR ANXIETY BEDSIDE REPORT COMPLETED WITH NIGHT JEANNA ROSE.
--- NOTE | 2019-01-01 07:10 | NUR ---
ASSUMED CARE OF PT- PT ALERT, UNABLE TO VERBALLY COMMUNICATE WHICH CAUSES ANXIETY AND SADNESS. SPOKE TO PT THIS MORNING AND HE BECAME TEARFULL. SAT WITH HIM AND CALMED HIM, MADE HIM LAUGH AND OFFERED TO HAVE SPIRITUAL CARE COME TO SEE HIM. PT IS UNSURE IF HE WOULD LIKE THIS BUT INDICATED HE WOULD NOT MIND TRYING TO SEE THEM. WILL CALL SPIRITUAL CARE IF THEY ARE AVAILABLE LATER TODAY.
--- NOTE | 2019-01-01 11:15 | NUR ---
PT ANXIOUS ABOUT INABILITY TO COMMUNICATE, SONAL FROM SPIRITUAL CARE IN THE ROOM SPEAKING WITH THE PT PRIOR. RN SAT WITH THE PT AND SPOKE ABOUT MUSIC. PT WAS A BIG FAN OF [place]EEP [place], [place], BLACK [place]ABATH AND OTHER [place]ARD [place] BANDS. PT SPOKE OF GOING TO A CONCERT AT THE [employer] IN [place]. LAUGHING AT THE MEMORY SEEMED TO IMPROVE HIS MOOD; HOWEVER HE WAS STILL ANXIOUS ABOUT HIS COMMUNICATION. MEDICATED PER EMAR WITH ATIVAN.
--- NOTE | 2019-01-01 11:46 | NUR ---
Upon receivinga request for spiritual care from patient's RN Joy (and with permission from the patient), I entered patient's room. Patient is sitting on the edge of the bed for most of my visit and is visibly frustrated by the struggle to articulate his thoughts and is shaking and tearful. Joy and I speak to patient in soft reassuring tones and encourage patient and he calms down. 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 He talks about albums and concerts and certain bands that have deeply impacted his life. I listen empathically, provide a calming presence and companionship and prayer. Patient responds well to the conversationa nd prayer. Patient is quieted by the prayer and repeats "Wow" several times and then stands and shakes my hand and thanks me.
--- NOTE | 2019-01-01 13:37 | NUR ---
UNLOCKED BATHROOM AND SAT WITH THE PT WHILE HE HAD A LARGE HARD STOOL.
--- NOTE | 2019-01-01 15:01 | NUR ---
SPOKE TO PT AUNT ([employer]) UPDATED ON PT ACTIVITY. PT TALKING MINIMALLY, BUT ACTING OUT SOME OF THE WORDS THAT HE WANTS TO SAY. PT IS WRITING WORDS AND PER HIS AUNT HE LIKES HORROR AND SI-FI FILMS WELL [place]. PT BECAME EXCITED WHEN THE STAFF TALKED ABOUT SI-FI MOVIES AFTER THIS CALL. WILL PASS ON THESE THINGS TO THE NEXT SHIFT SO THEY MAY BETTER COMMUNICATE WITH THE PT.
--- NOTE | 2019-01-01 16:00 | NUR ---
PT OUT IN THE HALLS INTERACTING WITH STAFF. NO S&S OF PAIN, ANXIETY OR DISTRESS NOTED AT THIS TIME
--- NOTE | 2019-01-01 17:53 | NUR ---
SHIFT SUMMARY- PT HAS HAD NO ACUTE CHANGES T/O THE SHIFT. NO C/O PAIN, PT UP AND ABOUT THE ROOM AND THE BENAVIDES INDEPENDENTLY. PT ATTEMPTING TO COMMUNICATE VERBALLY WITH THE STAFF. DR WILSON VERBALLY SUGGESTED THAT SPEECH THERAPY EVALUATE THE PT AND ASSIST WITH EXERCISES TO AID IN SPEECH IMPROVEMENT. SPOKE TO PT ABOUT THIS AND HE IS EAGER TO TRY AT THIS TIME. MEDICATED WITH ATIVAN ONCE DURRING THE SHIFT, PT WILLING TO TAKE MEDS WHEN NEEDED. WILL PASS ALL OF THIS ON IN BEDSIDE REPORT.
--- NOTE | 2019-01-02 09:48 | NUR ---
PATIENT RSTING COMFORTABLY. DENIES ANY PAIN AOR NAUSEA. SI PRECAUTIONS IN PLACE. PATIENT INDEPENDENT IN ROOM.
--- NOTE | 2019-01-02 09:49 | NUR ---
PATIENT INDEPENDENT IN ROOM, ASSISTING TO RESTROOM DUE TO SI PRECAUTIONS. PATIENT DENIES ANY NEEDS AT THIS TIME. TOLERATED BREAKFAST.
--- NOTE | 2019-01-02 16:40 | NUR ---
Met with Mor this afternoon in his room. He states he ate too much yesterday and did not feel well. He states he hasn't eaten breakfast or lunch today and is starting to feel a little better. Ostomy bag emptied of soft brown stool. Staff are planning to get him OOB to his electric wheelchair this afternoon. He has no other complaints other than his back is hurting, however he plans to get OOB shortly. Fentanyl patch was changed this afternoon per nursing.
--- NOTE | 2019-01-02 17:16 | NUR ---
PATIENT REMAINS ON SI PRECAUTIONS AND COMFORT CARE. PATIENT DENIES ANY PAIN OR NAUSEA THIS SHIFT. UP INDEPENDENT IN ROOM. PATIENT HAS APHASIA AND ST RECOMMENDED HAVING PATIENT WRITE WANT HE WANTS TO SAY. PATIENT SLEPT MOST OF THE SHIFT. CALM AND COOPERATIVE WITH CARE, ABLE TO EXPRESS NEEDS.
--- NOTE | 2019-01-03 07:00 | NUR ---
PATIENT SLEEPING AT THIS TIME. NO S/S OF PAIN ASSESSED. CALL LIGHT WITHIN REACH.
--- NOTE | 2019-01-03 07:18 | NUR ---
PATIENT REMAINS ON SI PRECAUTIONS. PATIENT SLEPT MUCH OF THE SHIFT. PT DENIES PAIN TONIGHT. INDEPENDENT TO BRP WITH SUPERVISION FOR SAFETY.
--- NOTE | 2019-01-03 09:00 | NUR ---
PATIENT DENIES ANY PAIN OR NAUSEA. UP INDPENDENTLY IN ROOM. ON SI PRECAUTIONS. DENIES ANY NEEDS AT THIS TIME. ABLE TO DO OWN SELF CARE WITH SUPERVISION.
--- NOTE | 2019-01-03 12:36 | NUR ---
PATIENT WANTING SOMETHING DIFFERENT FOR LUNCH, ORDER PLACED. PATIENT DENIES ANY PAIN OR DISCOMFORT. DENIES ANY OTHER NEEDS AT THIS TIME.
--- NOTE | 2019-01-03 15:20 | NUR ---
PATIENT CRYING AND STATING THAT HIS CHEST HURTS. HE WAS VERY ANXIOUS ALSO AT THIS TIME. ROXINOL AND ATIVAN GIVEN TO TREAT WITH STATED RELIEF. PATIENT TEARFUL AT THIS TIME AND PATIENT CALMED WITH CONVERSATION.
--- NOTE | 2019-01-03 17:10 | NUR ---
PATIENT SLEEPING AT THIS TIME. NO S/S OF PAIN OR DISCOMFORT. CALL LIGHT WITHIN REACH.
--- NOTE | 2019-01-04 15:31 | NUR ---
Pt visit this afternoon. Pt resting in bed watching television upon arrival. Pt reports tolerable pain in his abdomen and denies need for pain medication. After 3 to 4 attempts Pt is able to express concerns regarding not seeing his girlfriend Gely in some time. He then redirects his attention back to watching television. Pt reports no other concerns at this time. Spoke with bedside nurse Marie and discussed case. Marie reports no concerns at this time. Palliative Care will remain available.
--- NOTE | 2019-01-04 18:09 | NUR ---
SHIFT SUMMARY ROSE HAS BEEN PLEASANT AND COOPERATIVE THIS SHIFT. DIFFICULT TO DETERMINE LEVEL OF ORIENTATION DUE TO APHASIA, BUT SEEMS MOSTLY ORIENTED. EATING FOOD WELL W/O S/S OF ASPIRATION. SUICIDE PRECAUTIONS DC'D EARLY THIS MORNING BY DR HARRELL AT 0730. INDEPENDENT IN ROOM, FULLY CONTINENT TOILETING. FREQUENT CHECKS, PT HAPPILY RESTING, DENIES PAIN. CALL LIGHT IN REACH, [facility]
--- NOTE | 2019-01-04 21:36 | NUR ---
PT IS ALERT AND COOPERATIVE. PT IS SITTING UP IN BED WATCHING TV. PT IS ABLE TO GET SOME WORDS OUT BUT HAS APHASIA. DENIES PAIN OR NEEDS AT THIS TIME. PHYSICAL ASSESSMENT DONE, STABLE AT THIS TIME.
--- NOTE | 2019-01-05 05:19 | NUR ---
Rn summary: Pt is a comfort care patient. Pt is alert and appropriate. He has garbled speech but is able to communicate needs. Pt has denied any discomfort or anxiety. Pt watched TV for a few hours at the beginning of the shift. He has rested well. Pt is up independantly in room. Pt is stable. Call light in reach.
--- NOTE | 2019-01-05 07:39 | NUR ---
patient currently asleep in bed. no acute issues/changes noted.
--- NOTE | 2019-01-05 11:33 | NUR ---
JAMIL PAPERS GIVEN TO THE PATIENT. WORKING WITH SPEECH THERAPY TODAY ON TALKING WITH A KEYBOARD.
--- NOTE | 2019-01-05 15:35 | NUR ---
PALLIATIVE CARE CURRENTLY WITH PATIENT. COMMUNICATING CONCERNS THAT PATIENT HAS REGARDING HOME SITUATIONS. PATIENT WORKING ON CROSS WORD PUZZLES. AND JOSEOKU.
--- NOTE | 2019-01-05 15:48 | NUR ---
Pt visit this afternoon. Pt is working on [employer] mathing games, and sudoku puzzles upon arrival. He appears more upbeat today and states he loves sudoku. During conversation Pt attempts several times to discuss concerns regarding his coin collection. He focuses on his coin collection for much of the visit and seems to be concern that the collection may be stolen or already has been stolen. Instructed Pt this RN will relay concerns to caremanagers. Allowed Pt to focus on his word games and ended visit. Palliative Care will remain available.
--- NOTE | 2019-01-05 17:03 | NUR ---
PATIENT SHAVED MCDONOUGH WITH RN. SMILING REGARDING THE SHAVE. IN [employer] SPIRITS COMMUNICATING WITH STAFF.
--- NOTE | 2019-01-06 06:21 | NUR ---
SHIFT SUMMARY PT ON CC. INDEPENDENT IN ROOM. SLEPT T/O NIGHT. CALL LIGHT IN REACH.
--- NOTE | 2019-01-06 14:42 | NUR ---
Pt visit this afternoon. Pt is resting in bed with his eyes closed. He appears comfortable with no S/S of distress. This RN did not disturb Pt at this time. Called and spoke with Pt's Aunt Martha and discussed Hospitalist plan. Martha inquires if Pt will received continued ST treatment when he is dishcareged from hospital and if she will be contacted when he is discharged. Instructed Martha request will be relayed to caremanagers. Left voice message with caremanager Karen and relayed questions and concerns. Palliative Care will remain available.
--- NOTE | 2019-01-07 04:34 | NUR ---
SHIFT SUMMARY NO ACUTE CHANGES THIS SHIFT. PT SLEPT THROUGH MUCH OF THE NIGHT. REMAINED INDEPENDENT IN THE ROOM. TOOK HIS NIGHT TIME MEDICATIONS WITH NO PROBLEMS. NO COMPLAINTS OF PAIN OR DISCOMFORT. CONTINUES TO AWAIT PLACEMENT. WILL CONTINUE TO MONITOR.
--- NOTE | 2019-01-07 10:27 | NUR ---
MEDICATION GIVEN PER EMAR. PATIENT EATING BREAKFAST IN GOOD SPIRITS.
--- NOTE | 2019-01-07 14:50 | NUR ---
SITTING IN ROOM. WORKING ON WORD PUZZLES AND SUDOKU. NO ACUTE ISSUES NOTED
--- NOTE | 2019-01-07 16:31 | NUR ---
Pt visit this afternoon. Pt is resting in bed and denies pain at this time. Pt shows this RN homework he is working on. Pt appears mildly frustrated with one assignment and states "it doesn't make sense". Discussed goal of assignment and educated on how to procede. Pt reports no other concerns at this time. Spoke with bedside nurse Ailyn and she reports no concerns at this time. Palliative Care will remain available.
--- NOTE | 2019-01-07 16:41 | NUR ---
PATIENT CURRENTLY ASLEEP. NO ACUTE ISSUES NOTED.
--- NOTE | 2019-01-07 18:19 | NUR ---
SHIFT SUMMARY ASSUMED CARE AT 1700. REPORT RECEIVED FROM ANDRE MEEKS. PATIENT IS ALERT, PLEASANT AND COOPERATIVE WITH CARE. HE IS ABLE TO MAKE HIS NEEDS KNOWN. PATIENT IS INDEPENDENT IN HIS ROOM. DENIES PAIN OR DISCOMFORT. WILL CONT TO MONITOR.
--- NOTE | 2019-01-08 05:26 | NUR ---
PATIENT RESTING IN BED. PATIENT HAS GOTTEN UP AND DOWN INDEPENDENTLY TO THE BATHROOM. PATIENT DENIES ANY PAIN. STATED HE DIDN'T WANT TO GET HIGH POINTING AT MEDICATIONS, REFUSING SOME OF HIS MEDICATIONS SAYING TOO MUCH. PATIENT ANXIETY INCREASED WITH SPEAK DIFFICULTIES.
--- NOTE | 2019-01-08 15:11 | NUR ---
Pt visit this afternoon. Pt resting in bed watching television. Pt denies pain at this time. Pt appears comfortable with no signs of distress. Palliative Care will remain available
--- NOTE | 2019-01-08 18:08 | NUR ---
SHIFT SUMMARY- PT C/O LEG PAIN THIS AFTERNOON. PT REFUSED PAIN MEDICATIONS. PT DENIES SOB. RESP E/U ON RA. DENIES N/V. INDEPENDENT IN THE ROOM. NO OTHER SIGNIFICANT CHANGES THIS SHIFT.
--- NOTE | 2019-01-09 06:26 | NUR ---
no IV, room air, alert orintated to self at baseline, no medical changes noted during shift, cooperative with care, will continue to monitor and treat until share bsr with returning day shift
--- NOTE | 2019-01-09 11:48 | NUR ---
pt resting review of pt with staff. No new issues today.
--- NOTE | 2019-01-09 17:05 | NUR ---
SHIFT SUMMARY- PT REFUSED AM MEDS. PT DENIES PAIN. DENIES SOB. RESP E/U ON RA. DENIES N/V. INDEPENDENT IN THE ROOM. NO OTHER SIGNIFICANT CHANGES THIS SHIFT.
--- NOTE | 2019-01-10 03:50 | NUR ---
SHIFT SUMMARY PT ORIGINALLY ADMITTED WITH A-FIB WITH RVR. PT HAD EPISODE OF TESTING POSITIVE FOR ILLICIT DRUGS FOLLOWING A VISITOR SOME TIME AGO SO VISITORS ONLY ALLOWED IF STAFF MEMBER IS AT BEDSIDE. PT NOTED TO HAVE EF OF 20% WITH ANOXIC METABOLIC ENCEPHALOPATHY AND MENTATION NOT IMPROVING SO PT TRANSITIONED TO COMFORT MEASURES ONLY. NO IV ACCESS NEEDED. XARELTO FOR DVT PROPHYLAXIS. PT IS INDEPENDENT IN ROOM. PT IS CURRENTLY MEDICALLY STABLE AND AWAITING PLACEMENT. PT APPEARS TO BE SLEEPING COMFORTABLY AT THIS TIME WITH NO APPARENT SIGNS OF ACUTE DISTRESS. FREQUENT VISUAL CHECKS Q 2 HRS PER CC ASSESSMENT PROTOCOL.
--- NOTE | 2019-01-10 17:21 | NUR ---
pt stable and calm
--- NOTE | 2019-01-10 17:55 | NUR ---
SHIFT SUMMARY- PT DENIES PAIN. DENIES SOB. RESP E/U ON RA. DENIES N/V. INDEPENDENT IN THE ROOM. NO OTHER SIGNIFICANT CHANGES THIS SHIFT.
--- NOTE | 2019-01-11 04:13 | NUR ---
SHIFT SUMMARY NO APPARENT ACUTE CHANGES NOTED SO FAR THIS SHIFT. THE PT DID REFUSE TO TAKE NIGHT MEDS AND STATED THAT HE DOES NOT WANT TO TAKE MEDICATIONS AT NIGHT TIME ANYMORE. THE PT APPEARS TO BE SLEEPING COMFORTABLY AT THIS TIME WITH NO APPARENT SIGNS OF ACUTE DISTRESS. Q 2 HR COMFORT CARE ASSESSMENTS. WILL CONTINUE TO MONITOR.
--- NOTE | 2019-01-11 11:44 | NUR ---
Clinical Visit: Pt is ambulatory and in the hallway being social. He is able to say more words, but still gets very frustrated. He reports that he is sad, that he used to be very active. He is mourning his loss of his life as he knew it. He states that he is missing his girlfriend. He has not seen her or heard from her and starts crying. He has phone numbers on his board and wants me to call his son, Cristopher. Cristopher does answer the phone and the pt is attempting conversation. He continues to be frustrated. No further concerns at this time. He is eating and drinking. Will remain available. Care managment working on discharge.
--- NOTE | 2019-01-11 17:27 | NUR ---
ALERT. WORKING ON DIFFERENT PUZZLES T/O DAY. THIS RN DIALED PHONE FOR HIM SO HE COULD TALK TO EX- AND EX STEP SON. APPEARS TO BE ABLE TO CARRY ON SHORT CONVERSATION. DENIES PAIN. UNLABORED RESPIRATIONS. MOVES HIMSELF WITHOUT DIFFICULTY IN ROOM. BED IN LOW PSOITION. CALL LIGHT WITHIN REACH. WCTM.
--- NOTE | 2019-01-12 04:29 | NUR ---
SHIFT SUMMARY PT HAD GOOD SHIFT. PT QUIETING OCCUPIED HIMSELF. PT SLEPT OFF AND ON. PT CURRENTLY SLEEPING IN NO DISTRESS. CALL LIGHT IN REACH.
--- NOTE | 2019-01-12 08:12 | NUR ---
ASKED IF RE CAN CHANGE EVENING MEDS PATIENT HAS BEEN REFUSING NIGHT MEDS. OK TO SWITCH TO 1800
--- NOTE | 2019-01-12 10:53 | NUR ---
Late Entry from previous visit. Spoke with [facility]. Tiffanie reports Pt would benefit from continued ST treatment when Pt is discharged and expresses conerns regarding discharge plan. Tiffanie reports Pt may benefit more from [facility] VS care home. Relayed concerns and recommendations to caremanager Kristina. Kristina reports she will relay information to guardian.
--- NOTE | 2019-01-12 17:25 | NUR ---
ALERT. ORIENTED. GOOD APPETITE. INDEPENDENT IN ROOM. GAIT STEADY. WORKING ON WORD AND NUMBER PUZZLES. REFUSED SHOWER TODAY. USES BATHROOM WITHOUT DIFFICULTY. DENIES PAIN TODAY. WAITING FOR PLACEMENT. WCTM.
--- NOTE | 2019-01-12 21:18 | NUR ---
PATIENT STANDING IN ROOM EATING A CUP OF FRUIT. DENIES PAIN. STATES HE IS DOING FINE.
--- NOTE | 2019-01-13 05:09 | NUR ---
SHIFT SUMMARY PATIENT UP AD JUDE IN ROOM. PATIENT SLEPT THROUGH THE NIGHT. NO COMPLAINTS.
--- NOTE | 2019-01-13 14:37 | NUR ---
Pt visit this afternoon. Pt begins visit discussing plan for discharge. Instructed Pt that care management is waiting to hear back and is currently looking at other options as well. Pt reports concerns that his "mind is slipping". He states that he hallucinated about a week ago in the bathroom. Listened as Pt attempts to describe hallucination verbally and with him drawing. Pt becomes more anxious and tearful. Attempted to instruct Pt to stop thought process. Instucted on deep breathing exercises and Pt not able to focus. Pt is sitting on bed, stiffens up and lays back quickly. Guided Pt slowly to lie back in bed. Ended visit to aide in Pt's calming. Spoke with bedside nurse Balaji, discussed visit and reviewed medications. Balaji will offer Ativan for anxiety. Palliative Care will remain available.
--- NOTE | 2019-01-13 15:37 | NUR ---
ALERT. SOME DIFFICULTY WITH FORMING WORDS TODAY. AMBULATORY IN ROOM AND HALLWAY W/STEADY GAIT. GIVEN ATIVAN AFTER PALLIATIVE CARE VISIT. RESTING AT THIS TIME.
--- NOTE | 2019-01-13 20:19 | NUR ---
COMFORT CARE 1920 PATIENT SITTING AT SIDE OF BED; DOING A SODUKU PUZZLE. [facility].
--- NOTE | 2019-01-14 00:26 | NUR ---
COMFORT CARE 2110 NO ACUTE CHANGES AT THIS TIME. UP INDEPENDENTLY TO BATHROOM. TM.
--- NOTE | 2019-01-14 00:38 | NUR ---
COMFORT CARE 2300 APPEARS TO BE RESTING. NO ACUTE CHANGES AT THIS TIME. WCTM.
--- NOTE | 2019-01-14 01:55 | NUR ---
COMFORT CARE 0110 SITTING UP IN BED. ASKED IF PATIENT WAS THIRSTY. REQUESTED LEMONADE. NO ACUTE CHANGES. WCTM.
--- NOTE | 2019-01-14 03:19 | NUR ---
COMFORT CARE 0319 APPEARS TO BE RESTING. NO ACUTE CHANGES. WCTM. BED IN LOWEST POSITION. CALL LIGHT IN REACH
--- NOTE | 2019-01-14 06:26 | NUR ---
SHIFT SUMMARY A/O, ABLE TO MAKE NEEDS KNOWN. COOPERATIVE WITH CARE. UP INDEPENDENTLY WITH A STEADY GAIT. NO ACUTE CHANGES OVERNIGHT. BED REMAINED IN LOWEST POSITION. CALL LIGHT AND BELONGINGS WITHIN REACH. WCTM. REPORT TO ONCOMING RN.
--- NOTE | 2019-01-14 11:40 | NUR ---
Attempted to visit with Mor who remains on comfort care. He is currently in the bathroom. Spoke with nursing who reports pt advocate brought him a radio and he has been enjoying listening to music. Nursing voices no requests at this time. Will attempt to revisit with him later today. PC to remain available for symptom management.
--- NOTE | 2019-01-14 15:46 | NUR ---
SHIFT SUMMARY PT RESTING QUIETLY DURING SHIFT REPORT. NO C/O. VERY QUIET; MINIMAL CONVERSATION, DIFFICULT TO UNDERSTAND. PER REPORT, PT ON C/C AND WAITING FOR PLACEMENT. 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 ADMITTED WITH A-FIB W/RVR; EF @ 20%. PT INDEPENDANT IN RM THOUGH, WENT TO [facility] THIS AFTERNOON AND SAT DOWN IN [facility] FLOOR AND STARTED CRYING. DENIED FALLING. DENIED PAIN. NO INJURY. ATIVAN 1MG PO GIVEN FOR ANXIETY. PT LATER IMPROVED. NO C/O TO PRESENT. DOESN'T LIKE DRINKING WATER, WILL DRINK COFFEE. PT ADVOCATE HERE THIS AM, TO BRING PT A RADIO TO LISTEN TO. PT GRATEFUL. CALL LT IN REACH.
--- NOTE | 2019-01-14 21:21 | NUR ---
COMFORT CARE 2051 ALERT. COOPERATIVE. RESTING IN BED WATCHING TV. C/O MILD PAIN; MEDICATED PER EMAR. NO OTHER ACUTE CHANGES. BED IN LOWEST POSITION. CALL LIGHT AND BELONGINGS WITHIN REACH. [facility].
--- NOTE | 2019-01-14 22:31 | NUR ---
COMFORT CARE 4376 ALERT. COOPERATIVE. CONTINUES TO HAVE PAIN TO NECK. STATES WILL BE TRYING TO GO TO BED SOON. BED IN LOWEST POSITION. BELONGINGS AND CALL LIGHT WITHIN REACH. [facility].
--- NOTE | 2019-01-15 00:17 | NUR ---
COMFORT CARE 0016 APPEARS TO BE RESTING. NO ACUTE CHANGES. WCTM. BED IN LOWEST POSITION.
--- NOTE | 2019-01-15 02:43 | NUR ---
COMFORT CARE 0242 APPEARS TO BE RESTING COMFORTABLY. NO ACUTE CHANGES AT THIS TIME. BED REMAINS IN LOWEST POSITION. CALL LIGHT AND BELONGINGS WITHIN REACH. TM.
--- NOTE | 2019-01-15 05:01 | NUR ---
COMFORT CARE 0501 APPEARS TO BE RESTING COMFORTABLY. NO ACUTE CHANGES TO NOTE. UP INDEPENDENTLY IN ROOM AND TO BATHROOM. STEADY GAIT NOTED. BED IN LOWEST POSITION. CALL LIGHT AND BELONGINGS WITHIN REACH. [facility].
--- NOTE | 2019-01-15 05:02 | NUR ---
SHIFT SUMMARY A/O, ABLE TO MAKE NEEDS KNOWN MOST OF THE TIME. APPEARS FRUSTRATED DURING CONVERSATION. OFTEN TIMES WILL CALL SOMETHING COMPLETELY DIFFERENT, BECOMES NOTICABLY FRUSTRATED. COOPERATIVE WITH CARE. UP INDEPENDENT IN ROOM/TO BATHROOM. C/O PAIN/DISCOMFORT TO NECK; MEDICATED PER EMAR. APPEARED TO REST MUCH OF SHIFT. BED IN LOWEST POSITION. CALL LIGHT AND BELONGINGS WITHIN REACH. WCTM. REPORT TO ONCOMING RN.
--- NOTE | 2019-01-15 11:58 | NUR ---
Pt visit this AM. Pt is resting in bed with his eyes closed. Offered gentle voice and Pt opens his eyes temporarily then closes them. Pt appears comfortable with no S/S of distress at this time. Spoke with Mariela and discussed case. Palliative Care will remain available.
--- NOTE | 2019-01-15 17:19 | NUR ---
SHIFT SUMMARY NO ACUTE CHANGES TO PRESENT THIS SHIFT. PT INDEPENDENT IN RM. MEDICATED FOR C/O PAIN PER EMAR; FOR NECK PAIN AND LATER ROLDAN. DR WILSON IN TO SEE PT EARLIER IN THE DAY. PT DENIED NEEDS. DIFFERENT CARE MANAGERS HERE TO SEE PT AND DISCUSS D/C OPTIONS. PT HAS BEEN PLEASANT AND CO-OP. MINIMAL CONVERSATION OFFERED BY PT. NO S/SX'S OF DISTRESS NOTED OR REPORTED. CALL LT IN REACH.
--- NOTE | 2019-01-16 04:02 | NUR ---
PT FELT NAUSEOUS AT THE BEGINNING OF THE SHIFT, WHICH RESOLVED. OTHER THEN THAT PT HAD NO COMPLAINTS AND APPEARS COMFORTABLE. PT REMAINS ALERT AND INDEPENDENT IN HIS ROOM. WILL CONTINUE TO MONITOR PT.
--- NOTE | 2019-01-16 16:40 | NUR ---
SHIFT SUMMARY PT ON COMFORT CARE. PT STATED THIS MORNING THAT HE HAD PAIN BUT REFUSED PAIN MEDICATIONS. VS MEASURED R/T CARDIAC MEDS BEING GIVEN, STABLE. PT UP AD JUDE IN ROOM AND IN HALLWAYS. ANSWERING QUESTIONS APPROPRIATELY. NO ACUTE CHANGES THIS SHIFT. BED IN LOW POSITION, CALL LIGHT WITHIN REACH.
--- NOTE | 2019-01-17 04:08 | NUR ---
SHIFT SUMMARY PT HAD AN UNEVENTFUL SHIFT. NO COMPLAINTS OF PAIN OR NAUSEA WERE MADE. PT IS ALERT AND INDEPENDENT IN THE ROOM. PT APPEARS COMFORTABLE. WILL CONTINUE TO MONITOR.
--- NOTE | 2019-01-17 18:15 | NUR ---
SHIFT SUMMARY PT AXO, PLESANT. UP AD JUDE IN ROOM. ON COMFORT CARE. NO CHANGES THIS SHIFT. PT HAS PAIN BUT DOES NOT WANT PAIN MEDICATION. BED IN LOW POSITION, CALL LIGHT WITHIN REACH.
--- NOTE | 2019-01-17 19:57 | NUR ---
PT. SITTING UP IN BED, NO APPARENT DISTRESS NOTED. DENIES ANY PAIN OR DISCOMFORT. CALL LIGHT WITHIN REACH AND SIDE RAILS UP X2. WILL CONT TO MONITOR.
--- NOTE | 2019-01-17 22:05 | NUR ---
PT. ASLEEP IN BED, APPEARS COMFORTABLE. NO APPARENT DISTRESS NOTED. CALL LIGHT WITHIN REACH AND SIDE RAILS UP X2. WILL CONT TO MONITOR.
--- NOTE | 2019-01-18 03:07 | NUR ---
PT. ASLEEP IN BED, NO APPARENT DISTRESS NOTED. CALL LIGHT WITHIN REACH AND SIDE RAILS UP X2. WILL CONT TO MONITOR.
--- NOTE | 2019-01-18 03:32 | NUR ---
SHIFT SUMMARY- PT. ON COMFORT CARE. A&O, AMBULATES INDEPENDENTLY IN ROOM. PT. HAS DENIED ANY NEEDS T/O THE NIGHT AND NO C/O PAIN OR DISCOMFORT. PT. ASLEEP ON/OFF T/O THE SHIFT. CALL LIGHT WITHIN REACH AND SIDE RAILS UP X2. WILL CONT TO MONITOR.
--- NOTE | 2019-01-18 07:45 | NUR ---
PT. SLEEPING SOUNDLY.
--- NOTE | 2019-01-18 09:45 | NUR ---
PT. SITTING ON EDGE OF BED WORKING ON HIS BREAKFAST. DENIES PAIN OR NAUSEA.
--- NOTE | 2019-01-18 12:04 | NUR ---
PT. SITTING ON THE SIDE OF THE BED AFTER COMING BACK FROM BATHROOM. DENIES NEED OF ANYTHING.
--- NOTE | 2019-01-18 13:45 | NUR ---
PT. BACK IN BED AFTER EATING LUNCH.
--- NOTE | 2019-01-18 15:45 | NUR ---
PT. SITTING ON EDGE OF BED DRAWING AND PLAYING [employer], NO COMPLAINTS
--- NOTE | 2019-01-18 16:04 | NUR ---
Called and spoke with barbara Mccracken prior to visit and received verbal permission to take Pt outside for fresh air if Pt accepts. Pt is resting in bed upon arrival. Pt reports mild headache at beginning of visit and denies need for medication. Offered to take Pt outside and he accepts. Wheeled Pt via transport chair out to the south entrance/exit and positioned under maple trees in the shade. Pt smiling and pointing at the different trees. Pt points at the tress over head of us and states "[place]". Pt engages in conversation (struggling at times due to expressive aphasia) about the different trees, pointing at them and naming the species. Pt expresses appreciation for being outside and smiles for most of the visit. Remained outside for approximately 15 minutes then escorted Pt back to room. Pt visibily appreciative of outing. Pt reports headache has subsided. Palliative care will remain available.
--- NOTE | 2019-01-18 17:15 | NUR ---
PT. OUTSIDE WITH SUSAN ADRIAN IN WC UPON RETURN I NOTICED HE WAS WHINING AND WHIMPERING IT AMY TURNED INTO CRYING AND SHAKING, PT. COULD NOT TELL ME WHAT WAS WRONG. THE REMERON, ATIVAN AND ROXANOL GIVEN IT CALMED HIM ENOUGH TO EAT HIS DINNER.
--- NOTE | 2019-01-18 19:27 | NUR ---
PT. RELAXING ON BED AT THIS TIME.
--- NOTE | 2019-01-19 02:06 | NUR ---
PT. APPEARS TO BE RESTING COMFORTABLY IN BED, NO APPARENT DISTRESS NOTED. DENIES NEEDS AT THIS TIME. CALL LIGHT WITHIN REACH AND SIDE RAILS UP X2. WILL CONT TO MONITOR.
--- NOTE | 2019-01-19 03:36 | NUR ---
SHIFT SUMMARY- NO APPARENT DISTRESS NOTED. PT. RESTED WELL T/O THE SHIFT. A&O, INDEPENDENT IN THE ROOM. DENIES ANY NEEDS. AWAITING ON PLACEMENT. CALL LIGHT WITHIN REACH AND SIDE RAILS UP X2. WILL CONT TO MONITOR.
--- NOTE | 2019-01-19 07:30 | NUR ---
PT. SLEEPING AT THIS TIME
--- NOTE | 2019-01-19 10:55 | NUR ---
Comfort Care: Pt appears comfortable. He is laying in bed watching TV. Denies pain, anxiety. No other concerns. Touched bases with nurse Ebony. She has no concerns at this time. Pt seems to be recovered from his episode of anxiety and depression that he had yesterday following his visit outside. Will remain available.
--- NOTE | 2019-01-19 14:42 | NUR ---
Patient stated that he would be interested in inspirational guitar and singing. I played 6 songs and then a guardian entered the room and cut my visit short. I will continue to be available to patient.
--- NOTE | 2019-01-19 15:30 | NUR ---
PT. WATCHING TV
--- NOTE | 2019-01-19 15:30 | NUR ---
PT. LAYING IN BED WATCHING TV.
--- NOTE | 2019-01-19 19:00 | NUR ---
PT. BACK IN BED WATCHING TV, PT. HAS BEEN CALM AND QUIET T/O THE DAY, SPIRITUAL CARE CAME AND VISITED WITH HIM AND PLAYED MUSIC FORHIM TODAY. HAS PUT HIS FOOD TRAY BACK ON CART WHEN FINISHED AND HAS WALKED TO END OF [facility] AND LOOKED OUT THE WINDOW.
--- NOTE | 2019-01-19 19:48 | NUR ---
PT. RESTING COMFORTABLY IN BED, NO APPARENT DISTRESS NOTED. DENIES NEEDS AT THIS TIME. CALL LIGHT WITHIN REACH AND SIDE RAILS UP X2. WILL CONT TO MONITOR.
--- NOTE | 2019-01-20 03:30 | NUR ---
PT. ASLEEP IN BED, NO APPARENT DISTRESS NOTED. CALL LIGHT WITHIN REACH AND SIDE RAILS UP X2. WILL CONT TO MONITOR.
--- NOTE | 2019-01-20 04:31 | NUR ---
SHIFT SUMMARY- NO ACUTE CHANGES OVERNIGHT. PT. ASLEEP T/O THE NIGHT, NO APPARENT DISTRESS NOTED. CALL LIGHT WITHIN REACH AND SIDE RAILS UP X2. WILL CONT TO MONITOR.
--- NOTE | 2019-01-20 07:30 | NUR ---
PT. SLEEPING SOUNDLY
--- NOTE | 2019-01-20 09:30 | NUR ---
PT. SITTING ON EDGE OF BED FILLING OT HIS MENU, PT. CALM AND COOPERATIVE.
--- NOTE | 2019-01-20 11:28 | NUR ---
PT. SLEEPING ONCE AGAIN.
--- NOTE | 2019-01-20 13:22 | NUR ---
PT. EATING LUNCH AND WORKING ON PUZZLES. WHEN ASKED IF HE WAS IN PAIN HE SHOOKHIS HEAD "NO".
--- NOTE | 2019-01-20 15:33 | NUR ---
PT. IN WITH LAXMI GREGG WORKING ON COGNITION
--- NOTE | 2019-01-20 15:33 | NUR ---
PT. WORKING WITH [employer] PRODUCT DEVELOPMENT CHEMIST REGARDING COGNITIVE ABILITY. TOLERATING WELL.
--- NOTE | 2019-01-20 15:33 | NUR ---
PT. YAMILETH OUTPATIENT CASE MANAGER LAX[employer] IN ROOM WORKING ON PT. COGNITION . PT. TOLERATING WELL.
--- NOTE | 2019-01-20 17:35 | NUR ---
PT. SITTING ON EDGE OF BED ATE ALL OF HIS DINNER BUT REFUSED HIS REMERON THIS EVNEING
--- NOTE | 2019-01-20 20:58 | NUR ---
CALLED PT'S SON DORENE AND LEFT MESSAGE THAT WE MOVED THE PATIENT TO ROOM 313
--- NOTE | 2019-01-20 21:51 | NUR ---
LATE ENTRY PT TRANSFERED FROM ROOM 348 AT 2056. TRANSFERED ON BED WITH BELONGINGS. REPORT GIVEN BY RONALDO MEEKS. PT LYING COMFORTABLY IN BED. DENIES ANY NEEDS. WILL CONTINUE TO MONITOR.
--- NOTE | 2019-01-20 23:35 | NUR ---
Pt transferred to room 313 after giving report to nurse .
--- NOTE | 2019-01-21 06:25 | NUR ---
SHIFT SUMMARY NO ACUTE CHANGES. PT WALKED INDEPENDENTLY AROUND HIS ROOM. LISTENED TO HIS RADIO. DENIED ANY PAIN OR NEEDS THROUGHOUT THE NIGHT. PLEASANT AND COOPERATIVE. APPEARED COMFORTABLE THIS EVENING. WILL CONTINUE TO MONITOR.
--- NOTE | 2019-01-21 13:30 | NUR ---
0830 NOTE NO COMPLAINTS. EATING BREAKFAST. SLOW VERBAL RESPONSES. PLEASANT AND COMFORTABLE.
--- NOTE | 2019-01-21 13:31 | NUR ---
1030 NOTE SLEEPING. NO DISTRESS.
--- NOTE | 2019-01-21 13:32 | NUR ---
1230 N0TE HE IS EATING LUNCH. APPARENTLY HIS GUARDIAN WAS HERE WITH SOMEONE FROM A FACILITY TO EVALUATE HIM. NO OTHER CHANGES.
--- NOTE | 2019-01-21 16:07 | NUR ---
Pt visit this afternoon. Pt denies pain and dyspnea at this time. Offered to take Pt outside and Pt is agreeable. Spooke with bedside nurse Alysia and she is agreeable for Pt outing. [facility] to [facility] [place] via transport chair. Pt engages in conversation and struggles at time due to expressive aphasia but appears to enjoy outing. Stayed outside for approximately 15 minutes then transported Pt back to his room. Conversed for a few minutes more then ended visit. Spoke with SYSTEMS ENG and bedside nurse and discussed case prior to Pt visit. SYSTEMS ENG reports Pt's guardian and staff member from [facility] visited Pt earlier. Pt may be considered for acceptance for [facility]. Spoke with nonfarm animal caretaker Kristina and discussed case. Palliative Care will remain available.
--- NOTE | 2019-01-21 18:16 | NUR ---
1430 NOTE NAPS OFF AND ON. HE HAS OLDIES ON THE RADIO PLAYING.
--- NOTE | 2019-01-21 18:17 | NUR ---
1630 NOTE HE WENT OUTSIDE WITH THE PALLIATIVE CARE NURSE. HE LIKED IT. NO COMPLAINTS.
--- NOTE | 2019-01-21 18:18 | NUR ---
HE IS FINISHING DINNER. HE EATS WELL. HE DENIES DIFFICULTY WITH HIS BLADDER OR BOWELS. HE IS INDEPENDENT IN THE ROOM. UPDATE IN CHART ABOUT DISCHARGE PLANNING TODAY. FINANCES IS AN ISSUE.
--- NOTE | 2019-01-22 05:42 | NUR ---
SHIFT SUMMARY NO ACUTE CHANGES THIS SHIFT. PT REMAINED IN HIS ROOM THROUGHOUT THE NIGHT, ONLY COMING OUT ONCE TO REQUEST A SNACK. APPEARED TO SLEEP WELL. DENIES ANY NEEDS. NO COMPLAINTS OF PAIN. AWAITING PLACEMENT. WILL CONTINUE TO MONITOR.
--- NOTE | 2019-01-22 14:16 | NUR ---
0800 NOTE NO COMPLAINTS. SMILING. READY FOR BREAKFAST. EXPRESSIVE APHASIA UNCHANGED.
--- NOTE | 2019-01-22 14:17 | NUR ---
1000 NOTE ATE BREAKFAST WELL. AMBULATES AROUND BIG ROOM. TV ON. DENIES PAIN OR OTHER DISCOMFORTS.
--- NOTE | 2019-01-22 14:18 | NUR ---
1200 NOTE NO CHANGES.
--- NOTE | 2019-01-22 14:18 | NUR ---
1400 NOTE HE IS TRYING TO TALK ON THE PHONE. I DIALED IT FOR HIM. HE HAS AMBULATED IN THE BENAVIDES. HE ATE 50% OF HIS LUNCH.
--- NOTE | 2019-01-22 15:59 | NUR ---
HE IS COMFORTABLE. NO CHANGES.
--- NOTE | 2019-01-22 18:00 | NUR ---
HE IS CHEERFUL. DENIES ANY NEEDS AT THIS TIME. HE IS EATING DINNER. HIS EXPRESSIVE APHASIA IS SIGNIFICANT. HE IS SAD ABOUT NOT HAVING ANY OF HIS BELONGINGS FOR SO LONG.
--- NOTE | 2019-01-23 03:35 | NUR ---
NOC SHIFT SUMMARY PT IS PLEASANT AND COOPERATIVE WITH CARE. HE DOES HAVE EXPRESSIVE APHASIA WHICH IS QUITE NOTICABLE. HAS REMAINED IN HIS ROOM FOR MUCH OF THE NIGHT WATCHING TV. CAME OUT ONCE TO REQUEST A SANDWITCH AND ICE CREAM WHICH WERE PROVIDED. APPEARS COMFORTABLE AND IN NO ACUTE DISTRESS. WAVES HELLO DURING ROUNDING AND COMFORT CHECKS. WILL CONTINUE TO MONITOR.
--- NOTE | 2019-01-23 05:50 | NUR ---
APPEARS TO BE SLEEPING COMFORTABLY, RESP ARE EVEN AND UNLABORED.
--- NOTE | 2019-01-23 08:53 | NUR ---
Pt IS SITTING AT EDGE OF BED AT ASSESSMENT, EATING BREAKFAST. PT DENIES ANY PAIN/NAUSEA. REPORTS COMFORTABLE. PT IS SLOW TO RESPOND AND IS ORIENTED TO PERSON AND PLACE BUT NOT SITUATION OR TIME. PT DOES HAVE HX OF EXPRESSIVE APHAGIA. DIFFICULT TO ASSESS IF PT IS CONFUSED. WILL CTM CLOSLY AND ASSESS FOR COMFORT
--- NOTE | 2019-01-23 10:42 | NUR ---
PT APPEARS TO BE SLEEPING IN BED AT THIS TIME
--- NOTE | 2019-01-23 12:22 | NUR ---
PT FOUND SOBBING AND ANXIOUS. PT ENCOURAGED TO TAKE A SHOWER AND TRY TO RELAX, AND EAT SOME LUNCH. MIL BRIAN HELPED PT BACK TO BED AFTER SHOWER AND GET COMFORTABLE. WILL CTM
--- NOTE | 2019-01-24 01:54 | NUR ---
PT IS PRESENTLY SITING IN BED. AWAKE AND ALERT. WAVES HELLO WHEN I ENTER ROOM. NO NEEDS AT THIS TIME. APPEARS COMFORTABLE.
--- NOTE | 2019-01-24 06:29 | NUR ---
NOC SHIFT SUMMARY PT IS PLEASANT AND COOPERATIVE WITH CARE THIS NIGHT. HE HAS SPENT MUCH OF THE NIGHT WATCHING TV. REQEUSTED A SANDWITCH WHICH WAS PROVIDED. OTHERWISE AT EACH COMFORT CHECK HE HAS WAVED HELLO AND DENIED NEEDS. PRESENLTY WATCHING TV AND APPEARS COMFORTABLE. WILL CONTINUE TO MONITOR.
--- NOTE | 2019-01-24 17:34 | NUR ---
SHIFT SUMMARY NO CHANGES IN ASSESSMENT. PT STATES HE IS COMFORTABLE. DENIES NEEDS AT THIS TIME. WILL CONTINUE TO MONITOR.
--- NOTE | 2019-01-24 19:30 | NUR ---
WATCHING TV, DENIES NEEDS, APPEARS COMFORTABLE.
--- NOTE | 2019-01-24 23:17 | NUR ---
LAYING COMFORTABLY IN BED, DENIES NEEDS.
--- NOTE | 2019-01-25 01:54 | NUR ---
WATCHIGN TV. WAVES HELLO. DENIES NEEDS. APPEARS COMFORTABLE.
--- NOTE | 2019-01-25 03:48 | NUR ---
COMFORT CHECK. PT IS SLEEPING AND RESPIRATTIONS ARE EVEN AND UNLABORED. APPEARS COMFORTABLE.
--- NOTE | 2019-01-25 03:50 | NUR ---
NOC SHIFT SUMMARY PT IS PLEASANT AND COOPERATIVE WITH CARE. SPENT THE EVENING WATCHING TV AND WORKING IN [place]. HAS DENIED DISCOMFORT OR NEEDS DURING ROUNDING AND COMFORT CHECKS. PRESENTLY SLEEPING. RESP ARE EVEN AND UNLABORED. APPEARS COMFORTABLE AND IN NO ACUTE DISTRESS. NO CHANGES NOTED THIS SHIFT. WILL CONTINUE TO MONITOR.
--- NOTE | 2019-01-25 05:44 | NUR ---
SLEEPING RESP EVEN AND UNLABORED.
--- NOTE | 2019-01-25 16:23 | NUR ---
SUMMARY PT IS A/O X3-4 HOWEVER APHASIC, HAS DIFFICULTY W SPEECH, FINDING WORDS. ABLE TO MAKE NEEDS KNOWN, ANSWERS YES/NO APPROP. STATE NO PAIN/DISCOMFORT T/O DAY. STATE BOREDOM. @ X'S UP AMBULATING IN ROOM INDEPENDANTLY, GAIT HAS BEEN STEADY. HR IRREG-HX AFIB. HE IS PLEASANT/COOPERATIVE.
--- NOTE | 2019-01-26 09:38 | NUR ---
PT UP, IND IN ROOM, SHOWER IND. DR RAMIREZ IN TO SEE HIM STATE POSSIBLE D/C TO [facility] TODAY.
[2019-01-26] MEDS ORDERED: MIRT15ST PO (10:51)
[2019-01-26] MEDS ORDERED: DOCU100 PO (10:51)
[2019-01-26] MEDS ORDERED: METOPROLOL SUCC25 MG PO (10:51)
[2019-01-26] MEDS ORDERED: BENADRYL25 MG PO (10:51)
--- NOTE | 2019-01-26 11:52 | NUR ---
DR MCKEON BACK TO SEE PT, STATE D/C TODAY [facility]. [facility] MAKING ARRANGEMENTS NEW PCP, STATE EMPLOYEE FROM [facility] WILL BE IN FOR TRANSPORTATION APPROX 1500. SCRIPTS FAXED TO [facility]. PT PROVIDED HOSP PJ HE HAS NO CLEAN CLOTHING HERE. HE IS PLEASANT, SOMEWHAT APPREHENSIVE/UNCERTAIN CONCERNING NEW LIVING SITUATION, REASSURANCE & ENCOURAGEMENT PROVIDED. WILL REVIEW D/C INSTRUCT w PT & CAREGIVER WHEN THEY ARRIVE.
--- NOTE | 2019-01-26 17:10 | NUR ---
DISCHARGE NEW CAREGIVER NATHAN IN FOR TRANSPORTATION HOME. D/C INSTRUCT REVIEWED w PT & CAREGIVER. BELONGINGS GATHERED. PT PROVIDED W/C ESCORT FROM HOSP. HE IS PLEASANT/APPRECIATIVE.
== END 2019-01-26 15:41 | disposition home or self-care (01) | DRG 64 ==
LOC: ER 05:11 → MEDS 08:34 → PCU 08:34 → MEDS 08:34 → PCU 10:09 → MEDS 11-09 17:58 → ENPENDDIS 01-26 11:09 → MEDS 01-26 15:41
PROVIDERS: Emergency Medicine; Family Medicine; Internal Medicine; Nurse Practitioner Acute Care; ADMIT Family Medicine
DX: I63.9 Cerebral infarction, unspecified (principal); I50.21 Acute systolic (congestive) heart failure; I21.A1 Myocardial infarction type 2; G92 Toxic encephalopathy; Z51.5 Encounter for palliative care; R47.01 Aphasia; Z66 Do not resuscitate; I48.2 Chronic atrial fibrillation; Z79.01 Long term (current) use of anticoagulants; I11.0 Hypertensive heart disease with heart failure; K74.60 Unspecified cirrhosis of liver; F15.99 Other stimulant use, unspecified with unspecified stimulant-induced disorder; F03.90 Unspecified dementia, unspecified severity, without behavioral disturbance, psychotic disturbance, mood disturbance, and anxiety; T50.905A Adverse effect of unspecified drugs, medicaments and biological substances, initial encounter; I27.20 Pulmonary hypertension, unspecified; B95.62 Methicillin resistant Staphylococcus aureus infection as the cause of diseases classified elsewhere; I44.7 Left bundle-branch block, unspecified
CPT/HCPCS: 36415; 70450; 70496; 71045; 76705; 80053; 80061; 80069; 80074; 81001; 82140; 82550; 82947; 83605; 83735; 83880; 84146; 84443; 84484; 85025; 85220; 85303; 85384; 85610; 85651; 85730; 86038; 86147; 87070; 87081; 92507; 92523; 92610; 93005; 93010; 94760; 95819; 96360; 97110; 97116; 97161; 97165; 97168; 97530; 97535; 99285-25; A9270; C8929; G0480; J0360; J2060; J2405; J7030; Q9957; Q9967

== ENCOUNTER 2019-01-31 05:33 | Emergency (ER) | payer MEDICARE, OTHER ==
[~2019-01-31] VITALS: Ht 185.4 cm; Wt 99.8 kg
[~2019-01-31 05:33] MED LIST: BENADRYL25 MG PO; DOCU100 PO; ELIQUIS5 MG PO; Lisinopril2.5 MG PO; METOPROLOL SUCC25 MG PO; MIRT15ST PO
[2019-01-31] MEDS ORDERED: Norco 5-325 Ta1 EACH PO (07:02)
== END 2019-01-31 07:47 | disposition home or self-care (01) ==
LOC: ER 05:33
DX: S80.02XA Contusion of left knee, initial encounter (principal); S80.01XA Contusion of right knee, initial encounter; S40.811A Abrasion of right upper arm, initial encounter; S50.811A Abrasion of right forearm, initial encounter; Z86.73 Personal history of transient ischemic attack (TIA), and cerebral infarction without residual deficits; Z79.899 Other long term (current) drug therapy; Z79.01 Long term (current) use of anticoagulants; W01.10XA Fall on same level from slipping, tripping and stumbling with subsequent striking against unspecified object, initial encounter
CPT/HCPCS: 73562-LT; 73562-RT; 99283-25

== ENCOUNTER 2020-04-04 20:43 | Inpatient (IN) | payer OTHER ==
[~2020-04-04] VITALS: Ht 185.4 cm; Wt 98.2 kg
[~2020-04-04 20:43] MED LIST changes: +Norco 5-325 Ta1 EACH PO
[2020-04-04 21:40] LABS: BASOPHILS PERCENT AUTO 1 % (0-2); EOSINOPHILS PERCENT AUTO 2 % (0-6); Hematocrit 42.9 % (37.0-53.0); Hemoglobin 13.5 g/dL (13.5-17.5); IMMATURE GRAN ABSOLUTE AUTO 0.04 K/mm3 (0.00-0.10); IMMATURE GRAN PERCENT AUTO 0 % (0-1); LYMPHOCYTES ABSOLUTE AUTO 1.75 K/mm3 (0.84-5.20); LYMPHOCYTES PERCENT AUTO 15 % (21-46); MONOCYTES ABSOLUTE AUTO 1.31 K/mm3 (0.16-1.47); MONOCYTES PERCENT AUTO 11 % (4-13); Mean Corpuscular HGB Conc 31.5 g/dL (31.5-36.5); Mean Corpuscular Volume 83 fL (80-100); Mean Platelet Volume 9.8 fL (9.1-12.4); NEUTROPHILS PERCENT AUTO 71 % (41-73); Platelet Count 259 K/mm3 (150-400); RDW Coefficient Variation 14.2 % (11.7-14.2); RDW Standard Deviation 42.5 fL (35.1-46.3); Red Blood Cell Count 5.19 M/mm3 (4.30-5.90)
[2020-04-04 22:01] LABS: Alanine Aminotransfer (ALT/SGP 22 U/L (12-78); Albumin, Blood 3.3 g/dL (3.4-5.0); Albumin/Globulin Ratio 0.8 (0.8-1.8); Alk Phos 74 U/L (50-136); Anion Gap 7 mmol/L (6-16); Aspartate Aminotrans (AST/SGOT 22 U/L (12-37); Bilirubin, Total 0.8 mg/dL (0.1-1.0); Blood Urea Nitrogen 13 mg/dL (8-24); CO2, Blood 27 mmol/L (21-32); Calcium, Blood 8.6 mg/dL (8.5-10.1); Chloride, Blood 111 mmol/L (98-108); Creatinine, Blood 1.18 mg/dL (0.60-1.20); Ethanol (Alcohol), Blood, Med <3 mg/dL; Glomerular Filtration Rate >60 (60-); Glucose, Blood 119 mg/dL (70-99); Potassium, Blood 3.6 mmol/L (3.5-5.5); Salicylate <1.7 mg/dL (2.8-20.0); Sodium, Blood 145 mmol/L (136-145); Total Protein, Blood 7.3 g/dL (6.4-8.2); Troponin I 0.084 ng/mL (0.000-0.040)
[2020-04-04 22:02] LABS: Acetaminophen, Random <2.0 ug/mL (10.0-30.0)
[2020-04-04 23:57] LABS: International Normalized Ratio 1.15; Prothrombin Time Results 12.2 Sec (9.7-11.5)
[2020-04-05 03:27] LABS: Source, Urine Clean Catch
[2020-04-05 03:30] LABS: Bilirubin, Urine Neg (Neg); Blood, Urine 2+ (Neg); Glucose Qualitative, Urine Neg (Neg); Ketones, Urine Neg (Neg); Leukocyte Esterase, Urine Neg (Neg); Nitrite, Urine Neg (Neg); Protein, Urine 2+ (Neg); Specific Gravity, Urine 1.015 (1.003-1.022); Urobilinogen, Urine NORM (Normal)
[2020-04-05 03:31] LABS: Appearance, Urine Clear (Clear); Color, Urine Yellow (P-Yellow)
[2020-04-05 03:35] LABS: Squamous Epithelial Cells Not Seen /hpf (Few); White Blood Cells, Urine 0-2 /hpf (0-5)
[2020-04-05 03:36] LABS: Bacteria Few /hpf; Hyaline Casts 0-2 /lpf (0-2); Mucus Light (0-Heavy)
[2020-04-05 03:53] LABS: U Amphetamine Screen Not Detected; U Barbituate Screen Not Detected; U Benzodiazapine Screen Not Detected; U Buprenorphine Screen Not Detected; U Cannabinoids Screen DETECTED; U Cocaine Screen Not Detected; U Methadone Screen Not Detected; U Methamphetamine Screen Not Detected; U Opiates Screen Not Detected; U Oxycodone Screen Not Detected; U Phencyclidine Screen Not Detected; U Propoxyphene Screen Not Detected
[2020-04-05 04:00] LABS: BASOPHILS ABSOLUTE AUTO 0.07 K/mm3 (0.00-0.23); BASOPHILS PERCENT AUTO 1 % (0-2); EOSINOPHILS ABSOLUTE AUTO 0.22 K/mm3 (0.00-0.68); EOSINOPHILS PERCENT AUTO 2 % (0-6); Hematocrit 41.4 % (37.0-53.0); Hemoglobin 12.9 g/dL (13.5-17.5); IMMATURE GRAN ABSOLUTE AUTO 0.04 K/mm3 (0.00-0.10); IMMATURE GRAN PERCENT AUTO 0 % (0-1); LYMPHOCYTES ABSOLUTE AUTO 1.37 K/mm3 (0.84-5.20); LYMPHOCYTES PERCENT AUTO 14 % (21-46); MONOCYTES PERCENT AUTO 11 % (4-13); Mean Corpuscular HGB 25.8 pg (26.0-34.0); Mean Corpuscular HGB Conc 31.2 g/dL (31.5-36.5); Mean Corpuscular Volume 83 fL (80-100); Mean Platelet Volume 10.3 fL (9.1-12.4); NEUTROPHILS ABSOLUTE AUTO 6.94 K/mm3 (1.96-9.15); NEUTROPHILS PERCENT AUTO 71 % (41-73); Platelet Count 245 K/mm3 (150-400); RDW Coefficient Variation 14.2 % (11.7-14.2); RDW Standard Deviation 42.9 fL (35.1-46.3); White Blood Cell Count 9.74 K/mm3 (4.00-11.30)
[2020-04-05 04:19] LABS: Anion Gap 6 mmol/L (6-16); Blood Urea Nitrogen 13 mg/dL (8-24); Bun/Creatinine Ratio 11.7 (12.0-20.0); CO2, Blood 28 mmol/L (21-32); Calcium, Blood 8.4 mg/dL (8.5-10.1); Chloride, Blood 109 mmol/L (98-108); Creatinine, Blood 1.11 mg/dL (0.60-1.20); Glomerular Filtration Rate >60 (60-); Glucose, Blood 129 mg/dL (70-99); Magnesium, Blood 1.9 mg/dL (1.6-2.4); Phosphorus, Blood 3.2 mg/dL (2.5-4.9); Potassium, Blood 3.5 mmol/L (3.5-5.5); Sodium, Blood 143 mmol/L (136-145); Troponin I 0.087 ng/mL (0.000-0.040)
--- NOTE | 2020-04-05 06:06 | NUR ---
SUMMARY RECIEVED REPORT FROM MONTSERRAT MEEKS, PT TRANSFERRED INDEPENDENTLY TO BED. CAREGIVER ARRIVED WITH PT TO ASSIST WITH ADMIT, CAREGIVER LATER STATES HE IS THE PATIENTS BROTHER. 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 PT ALERT AND ORIENTED TO SELF AND SITUATION BUT UNSURE OF THE MONTH. FORGETS LIMITTATION AND NEEDS CONSTANT REMINDERS. PT STATES IT IS DIFFICULT FOR HIM TO URINATE BUT WAS PRODUCING URINE. ABDOMINAL DISCOMFORT ON PALPATION. 02 SATS >90% ON RA. VSS, NO ACUTE CHANGES. BED ALARM ON, CALL LIGHT IN REACH AND BED IN LOW POSITION. WILL CONTINUE TO MONITOR.
--- NOTE | 2020-04-05 07:48 | NUR ---
ASSUME CARE: PT UP IN THE CHAIR DURING REPORT ALERT AND AWAKE PT HAD HISTORY OF CVA AND HAS APHASIA, DIFFICULT TO EXPRESS THOUGHTS INTO WORDS. PT IS CURRENTLY RECEIVING 2ND BAG OF POTASSIUM. DENIES ANY PAIN AT THIS TIME. PT IS HERE FOR CHF EXACERBATION, ON DIURETICS LASIX 20MG BID AT THIS TIME. PT CURRENTLY EATING BREAKFAST, CHAIR ALARM ON FOR SAFETY. WILL MONITOR
--- NOTE | 2020-04-05 11:28 | NUR ---
Echocardiogram performed by Laurita Mitchell under my supervision.
--- NOTE | 2020-04-05 16:54 | NUR ---
PT SUMMARY: SEE PREVIOUS NOTE: NO ACUTE CHANGE FOR THE SHIFT VITALS HRR AFIB 80-100'S INCREASES UP TO 140'S WITH EXERTION, MILD SOB, BP SYSTOLIC 120-150'S PRN HYDRALAZINE GIVEN X1, SATS ABOVE 95% ON RA AFEBRILE. PT WAS C/O ABD PAIN BEFORE LUNCH TIME PT WAS OFFERED PAIN MEDS BUT PT REFUSED PT WAS ALSO HAVING A HARD TIME URINATING REFUSED CATHETER BLADDER SCAN SHOW >400 MLS RETAINED VOIDED 250MLS AFTER. PT WAS ABLE TO AMBULATE AROUND THE UNIT VIA WALKER WITH NO ISSUES WORKED WITH OT WELL. DR MAKI AND DR BRUNSON CONSULTED ABD CT SHOWS MULTIPLE NODULES. PT ALERT WITH EXPRESSIVE APHASIA RESIDUAL FROM LAST CVA. BROTHER WAS IN TO VISIT. PT CONTINUES TO DIURESE, PT IN BED RESTING BED ALARM ON FOR SAFETY, PT USES CALL LIGHT APPROPRIATELY, WILL REPORT TO ONCOMING SHIFT.
[2020-04-06 04:01] LABS: Hematocrit 38.9 % (37.0-53.0); Hemoglobin 12.4 g/dL (13.5-17.5); Mean Corpuscular HGB 26.5 pg (26.0-34.0); Mean Corpuscular HGB Conc 31.9 g/dL (31.5-36.5); Mean Corpuscular Volume 83 fL (80-100); Mean Platelet Volume 9.8 fL (9.1-12.4); Platelet Count 240 K/mm3 (150-400); RDW Coefficient Variation 14.6 % (11.7-14.2); RDW Standard Deviation 43.9 fL (35.1-46.3); Red Blood Cell Count 4.68 M/mm3 (4.30-5.90); White Blood Cell Count 9.81 K/mm3 (4.00-11.30)
[2020-04-06 04:24] LABS: Albumin, Blood 2.7 g/dL (3.4-5.0); Anion Gap 5 mmol/L (6-16); Blood Urea Nitrogen 20 mg/dL (8-24); CHOL/HDL RATIO 3.2; CO2, Blood 30 mmol/L (21-32); Calcium, Blood 8.6 mg/dL (8.5-10.1); Chloride, Blood 109 mmol/L (98-108); Cholesterol 90 mg/dL (50-200); Creatinine, Blood 1.25 mg/dL (0.60-1.20); Glomerular Filtration Rate >60 (60-); Glucose, Blood 93 mg/dL (70-99); HDL Cholesterol 28 mg/dL (>39); LDL/HDL RATIO 1.6; Low Density Lipoprotein Chol 46 mg/dL (0-110); Phosphorus, Blood 3.2 mg/dL (2.5-4.9); Potassium, Blood 4.1 mmol/L (3.5-5.5); Sodium, Blood 144 mmol/L (136-145); Triglycerides 80 mg/dL (30-160); Very Low Density Lipoprot Chol 16 mg/dL (6-32)
--- NOTE | 2020-04-06 05:39 | NUR ---
SHIFT SUMMARY PT A&O X3; COMMUNICATION DIFFICULT AT TIMES DUE TO EXPRESSIVE EPHASIA FROM PAST CVA; DENIES CHEST PAIN; VSS; AFIB NOTED ON TELE W/ HR IN 70'S; O2 SATS >93 ON RA; PT SLEPT SEVERAL HOURS; PT CAN BE IMPULSIVE, BED ALARM FOR SAFETY; PT AMBULATES TO BATHROOM W/ NO GAIT DISTURBANCES NOTED; PREFERS TO STAND AND USE URINAL IN BATHROOM; MINIMAL OUTPUT AT A TIME, APPROXIMATELY 100-200 ML; NO ACUTE CHANGES NOTED T/O SHIFT; CALL LIGHT IN REACH; BED IN LOWEST POSITION; WILL CONTINUE TO MONITOR CLOSELY UNTIL HAND OFF TO DAY SHIFT RN.
--- NOTE | 2020-04-06 07:31 | NUR ---
Bedside report received from Analy Moulton. Mor is sitting on the side of the bed, playing a game on his phone. Pleasantly conversant, but obvious difficulty at times finding his words. NO anxiety or obvious discomfort at this time. He asks when breakfast is coming, and states he is hungry.
--- NOTE | 2020-04-06 09:29 | NUR ---
Mor's brother Ciaran is here, talking with the patient. Pt states that he has no concerns, questions or needs at this time. Ciaran is here waiting for Dr. Calle now, he says.
--- NOTE | 2020-04-06 16:46 | NUR ---
Mor is alert, and oriented to person, place and following directions. He does have some conversation which jumped from subject to subject, and he was tearful this afternoon telling me that he thought that he had a relationship with one of the staff members, but that that person didn't return the feelings. He answers questions, and is cooperative with care. Insight into his situation and medical diagnosis is very limited. Will need much assistance with his medication regimen to ensure complaince after discharge. The pt has tolerated the adjustment in metoprolol dose this afternoon. Today he has been ambulatory independently in the room and to the bathroom. Walked with me around the PCU and ICU hallway, admiring the art work, stopping occasionally. He showed very good tolerance of the activity. Vital signs were stable.
--- NOTE | 2020-04-06 17:46 | NUR ---
Telephone report given to Shey Schulz at this time. Pt will be transferred to room 339 this evening.
--- NOTE | 2020-04-06 18:00 | NUR ---
PT ARRIVED TO ROOM 339 FROM U 4 VIA W/C. PT ABLE TO STAND AND WALK TO BED. PT IS SBA. CALL HULL IN REACH AND BED IN LOWEST POSITION. WILL MONITOR
--- NOTE | 2020-04-06 19:21 | NUR ---
RECEIVED REPORT FROM JEANNA YBARRA. PT LYING ON RIGHT SIDE IN BED. ASKED FOR HIS LIGHT TO BE TURNED OFF. NO OTHER NEEDS AT THIS TIME. WILL MONITOR AND PROVIDE CARE T/O SHIFT. CALL LT IN REACH. BED ALARMED.
--- NOTE | 2020-04-06 23:56 | NUR ---
PT RESTING QUIETLY. CALL LT IN REACH. BED ALARMED.
--- NOTE | 2020-04-07 04:15 | NUR ---
SHIFT SUMMARY: NO COMPLAINTS OF PAIN, NAUSEA, SOB OR N/T. UP INDEPENDENTLY TO THE BR. BED ALARMED T/O SHIFT. AFIB ON TELE IN 'S. HX OF AFIB. MILD EXPRESSIVE APHASIA. PLAN IS TO CONTINUE DIURESING. NO ACUTE CHANGES. WILL CONTINUE TO MONITOR AND PROVIDE CARE UNTIL SHIFT REPORT.
[2020-04-07] MEDS ORDERED: ATOR40TA PO (12:21)
[2020-04-07] MEDS ORDERED: Prinivil10 MG PO (12:22)
[2020-04-07] MEDS ORDERED: METO50ER PO (12:23)
[2020-04-07] MEDS ORDERED: XARELTO20 MG PO (12:24)
[2020-04-07] MEDS ORDERED: FURO20 PO (12:25)
--- NOTE | 2020-04-07 14:29 | NUR ---
DISCHARGE DISCHARGE INSTRUCTIONS, MEDICATION LIST AND FOLLOW UP APPOINTMENTS REVIEWED WITH PT. QUESTIONS/CONCERNS ANSWERED. PT EDUCATED ON IMPORTANCE OF LOW SALT DIET AND FLUID RESTRICTION ORDERED AND NEED FOR TAKING MEDS ON A CONTINUING BASIS. PT VERBALLY INDICATED UNDERSTANDING OF ALL INSTRUCTIONS RECEIVED. ESCORTED OUT VIA W/C BY MIL
== END 2020-04-07 14:30 | disposition home or self-care (01) | DRG 308 ==
LOC: ER 20:43 → PCU 20:44 → MEDS 04-06 13:28 → PCU 04-06 13:28 → MEDS 04-06 18:00 → ENPENDDIS 04-07 10:50 → MEDS 04-07 14:30
PROVIDERS: Emergency Medicine; Internal Medicine; Nurse Practitioner Acute Care; ADMIT Internal Medicine
DX: I48.19 Other persistent atrial fibrillation (principal); I50.23 Acute on chronic systolic (congestive) heart failure; I42.8 Other cardiomyopathies; I11.0 Hypertensive heart disease with heart failure; Z20.828 Contact with and (suspected) exposure to other viral communicable diseases; D73.5 Infarction of spleen; R91.8 Other nonspecific abnormal finding of lung field; K74.60 Unspecified cirrhosis of liver; I72.3 Aneurysm of iliac artery; I72.4 Aneurysm of artery of lower extremity; I69.920 Aphasia following unspecified cerebrovascular disease; I69.990 Apraxia following unspecified cerebrovascular disease; Z91.14 Patient's other noncompliance with medication regimen
CPT/HCPCS: 36415; 71045; 74176; 80048; 80053; 80061; 80069; 81001; 82140; 83735; 83880; 84100; 84484; 85025; 85027; 85610; 85730; 92610; 93005; 93010; 94762; 96374; 96375; 96376; 97162; 97166; 97530; 97535; 99285-25; A9270; A9270-GY; C8929; G0378; G0480; J1940; J2405; J3480; J7050; U0004

== ENCOUNTER → 2020-06-04 | Outpatient (CLI) | payer OTHER ==
[~2020-06-04] MED LIST changes: +ATOR40TA PO; +FURO20 PO; +METO50ER PO; +Prinivil10 MG PO; +XARELTO20 MG PO
== END | disposition home or self-care (01) ==
LOC: LAB SHORT 10:29
DX: L72.0 Epidermal cyst (principal)
CPT/HCPCS: 87070; 87075; 87205

== ENCOUNTER 2021-01-30 13:59 | Emergency (ER) | payer OTHER ==
[~2021-01-30] VITALS: Ht 182.9 cm; Wt 86.2 kg
[2021-01-30 14:50] LABS: Calcium, Ionized (POC) 1.16 mmol/L (1.10-1.46); Chloride (POC) 102 mmol/L (98-108); Creatinine (POC) 1.4 mg/dL (0.8-1.3); Glucose (ISTAT POC) 115 mg/dL (70-99); Potassium (POC) 3.6 mmol/L (3.5-5.5); Sodium (POC) 141 mmol/L (135-148); Total CO2 (POC) 24 mmol/L (21-32)
[2021-01-30] MEDS ORDERED: Zithromax200 MG/5 M PO (16:51)
== END 2021-01-30 17:05 | disposition home or self-care (01) ==
LOC: ER 13:59
PROVIDERS: Emergency Medicine
DX: I10 Essential (primary) hypertension (principal); I48.92 Unspecified atrial flutter; I48.91 Unspecified atrial fibrillation; K08.89 Other specified disorders of teeth and supporting structures; I69.320 Aphasia following cerebral infarction; Z79.899 Other long term (current) drug therapy
CPT/HCPCS: 36415; 80047; 85014; 93005; 93010; 96365; 96375; 99285-25; J0696; J2060; J7030

== ENCOUNTER 2021-10-20 22:09 | Emergency (ER) | payer OTHER ==
[~2021-10-20] VITALS: Ht 182.9 cm; Wt 99.8 kg
[~2021-10-20 22:09] MED LIST changes: +Zithromax200 MG/5 M PO
[2021-10-20 22:48] LABS: BASOPHILS ABSOLUTE AUTO 0.08 K/mm3 (0.00-0.23); BASOPHILS PERCENT AUTO 1 % (0-2); EOSINOPHILS PERCENT AUTO 1 % (0-6); IMMATURE GRAN ABSOLUTE AUTO 0.05 K/mm3 (0.00-0.10); IMMATURE GRAN PERCENT AUTO 0 % (0-1); LYMPHOCYTES ABSOLUTE AUTO 1.33 K/mm3 (0.84-5.20); LYMPHOCYTES PERCENT AUTO 9 % (21-46); MONOCYTES ABSOLUTE AUTO 1.48 K/mm3 (0.16-1.47); MONOCYTES PERCENT AUTO 10 % (4-13); Mean Corpuscular HGB 28.1 pg (26.0-34.0); Mean Corpuscular HGB Conc 33.3 g/dL (31.5-36.5); Mean Corpuscular Volume 84 fL (80-100); Mean Platelet Volume 9.2 fL (9.1-12.4); NEUTROPHILS PERCENT AUTO 79 % (41-73); Platelet Count 288 K/mm3 (150-400); RDW Coefficient Variation 13.3 % (11.7-14.2); RDW Standard Deviation 41.1 fL (35.1-46.3); Red Blood Cell Count 6.04 M/mm3 (4.30-5.90); White Blood Cell Count 14.84 K/mm3 (4.00-11.30)
[2021-10-20 23:06] LABS: Albumin, Blood 3.9 g/dL (3.4-5.0); Albumin/Globulin Ratio 0.8 (0.8-1.8); Bilirubin, Total 1.2 mg/dL (0.1-1.0); Calcium, Blood 9.3 mg/dL (8.5-10.1); Creatinine, Blood 1.08 mg/dL (0.60-1.20); Globulin, Blood 4.7 g/dL (2.2-4.0); Potassium, Blood 4.6 mmol/L (3.5-5.5); Total Protein, Blood 8.6 g/dL (6.4-8.2)
== END 2021-10-21 01:54 | disposition home or self-care (01) ==
LOC: ER 22:09
PROVIDERS: Emergency Medicine
DX: I48.92 Unspecified atrial flutter (principal); R11.2 Nausea with vomiting, unspecified; K43.9 Ventral hernia without obstruction or gangrene; I69.920 Aphasia following unspecified cerebrovascular disease; I69.990 Apraxia following unspecified cerebrovascular disease; I11.0 Hypertensive heart disease with heart failure; I50.40 Unspecified combined systolic (congestive) and diastolic (congestive) heart failure; I25.2 Old myocardial infarction; Z79.899 Other long term (current) drug therapy; Z79.01 Long term (current) use of anticoagulants
CPT/HCPCS: 36415; 71046; 80053; 83690; 84484; 85025; 93005; 93010; A9270; J2405; J7030

== ENCOUNTER 2023-04-11 18:56 | Emergency (ER) | payer OTHER ==
[~2023-04-11] VITALS: Ht 172.7 cm; Wt 81.7 kg
[2023-04-11] MEDS ORDERED: LIVALO2 MG PO (19:16)
[2023-04-11 19:58] LABS: BASOPHILS PERCENT AUTO 1 % (0-2); EOSINOPHILS ABSOLUTE AUTO 0.56 K/mm3 (0.00-0.68); EOSINOPHILS PERCENT AUTO 6 % (0-6); Hemoglobin 13.1 g/dL (13.5-17.5); IMMATURE GRAN ABSOLUTE AUTO 0.04 K/mm3 (0.00-0.10); IMMATURE GRAN PERCENT AUTO 0 % (0-1); LYMPHOCYTES ABSOLUTE AUTO 1.52 K/mm3 (0.84-5.20); LYMPHOCYTES PERCENT AUTO 15 % (21-46); MONOCYTES ABSOLUTE AUTO 1.09 K/mm3 (0.16-1.47); MONOCYTES PERCENT AUTO 11 % (4-13); Mean Corpuscular HGB 27.6 pg (26.0-34.0); Mean Corpuscular HGB Conc 32.8 g/dL (31.5-36.5); Mean Corpuscular Volume 84 fL (80-100); Mean Platelet Volume 9.7 fL (9.1-12.4); NEUTROPHILS ABSOLUTE AUTO 6.58 K/mm3 (1.96-9.15); NEUTROPHILS PERCENT AUTO 67 % (41-73); Platelet Count 266 K/mm3 (150-400); RDW Coefficient Variation 14.8 % (11.7-14.2); RDW Standard Deviation 45.6 fL (35.1-46.3); Red Blood Cell Count 4.75 M/mm3 (4.30-5.90); White Blood Cell Count 9.89 K/mm3 (4.00-11.30)
[2023-04-11 20:11] LABS: Albumin, Blood 3.4 g/dL (3.4-5.0); Albumin/Globulin Ratio 0.9 (0.8-1.8); Bilirubin, Total 0.3 mg/dL (0.1-1.0); Calcium, Blood 8.5 mg/dL (8.5-10.1); Creatinine, Blood 1.2 mg/dL (0.60-1.20); Globulin, Blood 3.7 g/dL (2.2-4.0); Potassium, Blood 3.7 mmol/L (3.5-5.5); Total Protein, Blood 7.1 g/dL (6.4-8.2)
[2023-04-11 21:07] VITALS: BP 143/68
== END 2023-04-11 22:17 | disposition home or self-care (01) ==
LOC: ER 18:56
PROVIDERS: Student in an Organized Health Care Education/Training Program
DX: R07.2 Precordial pain (principal); R06.02 Shortness of breath; I11.0 Hypertensive heart disease with heart failure; I50.9 Heart failure, unspecified; I25.10 Atherosclerotic heart disease of native coronary artery without angina pectoris; I48.20 Chronic atrial fibrillation, unspecified; Z87.891 Personal history of nicotine dependence; Z79.01 Long term (current) use of anticoagulants; Z79.899 Other long term (current) drug therapy
CPT/HCPCS: 71046; 80053; 83690; 83880; 84484; 85025; 93005; 93010; 99285-25; A9270

== ENCOUNTER 2024-09-13 19:28 | Emergency (ER) | payer OTHER ==
[~2024-09-13] VITALS: Ht 190.5 cm; Wt 81.7 kg
[~2024-09-13 19:28] MED LIST changes: +LIVALO2 MG PO
[2024-09-13 20:07] LABS: BASOPHILS ABSOLUTE AUTO 0.11 K/mm3 (0.00-0.23); BASOPHILS PERCENT AUTO 1 % (0-2); EOSINOPHILS PERCENT AUTO 4 % (0-6); Hemoglobin 14.5 g/dL (13.5-17.5); IMMATURE GRAN ABSOLUTE AUTO 0.04 K/mm3 (0.00-0.10); IMMATURE GRAN PERCENT AUTO 0 % (0-1); LYMPHOCYTES PERCENT AUTO 18 % (21-46); MONOCYTES ABSOLUTE AUTO 0.78 K/mm3 (0.16-1.47); MONOCYTES PERCENT AUTO 9 % (4-13); Mean Corpuscular HGB 26.8 pg (26.0-34.0); Mean Corpuscular HGB Conc 32.2 g/dL (31.5-36.5); Mean Corpuscular Volume 83 fL (80-100); Mean Platelet Volume 9.4 fL (9.1-12.4); NEUTROPHILS ABSOLUTE AUTO 6.21 K/mm3 (1.96-9.15); NEUTROPHILS PERCENT AUTO 68 % (41-73); Platelet Count 222 K/mm3 (150-400); RDW Coefficient Variation 14.7 % (11.7-14.2); RDW Standard Deviation 44.5 fL (35.1-46.3); Red Blood Cell Count 5.41 M/mm3 (4.30-5.90); White Blood Cell Count 9.14 K/mm3 (4.00-11.30)
[2024-09-13 20:21] LABS: Albumin, Blood 3.3 g/dL (3.4-5.0); Albumin/Globulin Ratio 0.8 (0.8-1.8); Bilirubin, Total 0.7 mg/dL (0.1-1.0); Bun/Creatinine Ratio 16.7 (12.0-20.0); Calcium, Blood 8.4 mg/dL (8.5-10.1); Creatinine, Blood 1.02 mg/dL (0.60-1.20); Globulin, Blood 3.9 g/dL (2.2-4.0); Potassium, Blood 3.2 mmol/L (3.5-5.5); Total Protein, Blood 7.2 g/dL (6.4-8.2)
[2024-09-13 20:30] VITALS: BP 141/90
== END 2024-09-13 21:29 | disposition home or self-care (01) ==
LOC: ER 19:28
PROVIDERS: Student in an Organized Health Care Education/Training Program
DX: R55 Syncope and collapse (principal); Z87.891 Personal history of nicotine dependence; I11.0 Hypertensive heart disease with heart failure; I50.9 Heart failure, unspecified; I48.91 Unspecified atrial fibrillation; Z79.899 Other long term (current) drug therapy; Z79.51 Long term (current) use of inhaled steroids; Z79.52 Long term (current) use of systemic steroids; Z79.890 Hormone replacement therapy; Z79.1 Long term (current) use of non-steroidal anti-inflammatories (NSAID); Z79.83 Long term (current) use of bisphosphonates
CPT/HCPCS: 80053; 83880; 84484; 85025; 93005; 93010; 99284-25

== ENCOUNTER 2025-02-04 14:00 | Inpatient (IN) | payer OTHER ==
[~2025-02-04] VITALS: Ht 188 cm; Wt 76.6 kg
[2025-02-04 15:57] LABS: BASOPHILS ABSOLUTE AUTO 0.06 K/mm3 (0.00-0.23); BASOPHILS PERCENT AUTO 1 % (0-2); EOSINOPHILS ABSOLUTE AUTO 0.13 K/mm3 (0.00-0.68); EOSINOPHILS PERCENT AUTO 1 % (0-6); Hematocrit 41.9 % (37.0-53.0); Hemoglobin 13.8 g/dL (13.5-17.5); IMMATURE GRAN ABSOLUTE AUTO 0.05 K/mm3 (0.00-0.10); IMMATURE GRAN PERCENT AUTO 1 % (0-1); LYMPHOCYTES ABSOLUTE AUTO 0.79 K/mm3 (0.84-5.20); LYMPHOCYTES PERCENT AUTO 7 % (21-46); MONOCYTES ABSOLUTE AUTO 0.93 K/mm3 (0.16-1.47); MONOCYTES PERCENT AUTO 8 % (4-13); Mean Corpuscular HGB Conc 32.9 g/dL (31.5-36.5); Mean Corpuscular Volume 83 fL (80-100); NEUTROPHILS ABSOLUTE AUTO 9.15 K/mm3 (1.96-9.15); NEUTROPHILS PERCENT AUTO 82 % (41-73); NRBC ABSOLUTE 0.00 K/mm3 (0.00-0.02); NRBC Auto 0.0 /100 WBC (0.0-0.2); Platelet Count 171 K/mm3 (150-400); RDW Coefficient Variation 14.4 % (11.7-14.2); RDW Standard Deviation 43.5 fL (35.1-46.3)
[2025-02-04 16:14] LABS: Prothrombin Time Results 12.5 Sec (9.7-11.5)
[2025-02-04 16:43] LABS: Anion Gap 8.0 mmol/L (3-11); Blood Urea Nitrogen 14.0 mg/dL (8-24); CO2, Blood 28.0 mmol/L (21-32); Calcium, Blood 8.7 mg/dL (8.5-10.1); Chloride, Blood 107.0 mmol/L (98-108); Creatinine, Blood 0.86 mg/dL (0.60-1.20); Glucose, Blood 122.0 mg/dL (70-99); Magnesium, Blood 2.0 mg/dL (1.6-2.4); Potassium, Blood 3.1 mmol/L (3.5-5.5); Sodium, Blood 140.0 mmol/L (136-145); Thyroid Stimulating Hormone 2.97 uIU/mL (0.360-4.800)
[2025-02-04] MEDS ORDERED: NS 1,000 ML IV SCH (19:55)
[2025-02-04] MEDS ORDERED: FentaNYL Citrate 50 MCG/ML 2 ML Injection IV PRN (20:00)
[2025-02-04] MEDS ORDERED: Ondansetron HCl 2 MG / ML 2ML Vial IV PRN (20:00)
[2025-02-04] MEDS ORDERED: Metoclopramide HCl 5MG / ML 2ML Vial IV PRN (20:00)
[2025-02-04] MEDS ORDERED: FentaNYL Citrate 50 MCG/ML 2 ML Injection IV ONE (20:00)
[2025-02-04] MEDS ORDERED: HydrALAZINE HCl 20 MG / ML 1ML Vial IV PRN (20:05)
[2025-02-04 21:46] VITALS: BP 177/115
--- NOTE | 2025-02-04 22:00 | NUR ---
ARRIVAL TO SURGICAL FLOOR ROOM 214 AT 2105. PT TRANSFERED TO BED VIA SLIDER SHEET. PT IS NON VERBAL WITH HX OF DEMENTIA AND CVA. PT FLACC SCORE HIGH AND MEDICATED FOR PAIN. PT CHANGED INTO HOSPITAL GOWN AND CHANGED ATTENDS WITH BM AND INCONT VOID. PT IS HYPERTENSIVE AND HEART RATE IRREGULAR. ORIENTED TO ROOM AND CALL LIGHT, CALL LIGHT IN REACH.
[2025-02-04 22:20] VITALS: BP 161/112
--- NOTE | 2025-02-04 22:58 | NUR ---
CALL TO HOSPITALIST. CLARIFICATION ON ORDERS. PT DNR STATUS D/T BEING ON HOSPICE CARE AT HOME. TELEMETRY ORDER D/C'D. PALLIATIVE CARE CONSULT ORDERED. NOTIFIED PROVIDER THAT PT HYPERTENSIVE BUT SBP BELOW PARAMETER, PER PROVIDER ONLY MEDICATE PER ORDER.
--- NOTE | 2025-02-04 23:29 | NUR ---
TRANFER OF PRIMARY NURSING CARE OF PT TO TATE MONSON RN. REPORT GIVEN.
[2025-02-05] VITALS (21 sets, daily range): BP systolic 108–168; BP diastolic 64–102
[2025-02-05 04:48] LABS: Hematocrit 42.0 % (37.0-53.0); Hemoglobin 13.7 g/dL (13.5-17.5); Mean Corpuscular HGB Conc 32.6 g/dL (31.5-36.5); Mean Corpuscular Volume 83 fL (80-100); NRBC ABSOLUTE 0.00 K/mm3 (0.00-0.02); NRBC Auto 0.0 /100 WBC (0.0-0.2); Platelet Count 152 K/mm3 (150-400); RDW Coefficient Variation 14.6 % (11.7-14.2); RDW Standard Deviation 44.1 fL (35.1-46.3)
[2025-02-05 05:09] LABS: Alanine Aminotransfer (ALT/SGP 16.0 U/L (12-78); Albumin, Blood 3.1 g/dL (3.4-5.0); Albumin/Globulin Ratio 0.8 (0.8-1.8); Anion Gap 8.0 mmol/L (3-11); Aspartate Aminotrans (AST/SGOT 16.0 U/L (12-37); Bilirubin, Total 1.7 mg/dL (0.1-1.0); Blood Urea Nitrogen 15.0 mg/dL (8-24); CO2, Blood 25.0 mmol/L (21-32); Calcium, Blood 8.5 mg/dL (8.5-10.1); Chloride, Blood 107.0 mmol/L (98-108); Creatinine, Blood 0.8 mg/dL (0.60-1.20); Globulin, Blood 3.8 g/dL (2.2-4.0); Glucose, Blood 113.0 mg/dL (70-99); Potassium, Blood 3.4 mmol/L (3.5-5.5); Sodium, Blood 137.0 mmol/L (136-145); Total Protein, Blood 6.9 g/dL (6.4-8.2)
[2025-02-05] MEDS ORDERED: HYDROmorphone HCl/Pf 1MG SYR IV PRN ×3 (06:20→12:30)
[2025-02-05] MEDS ORDERED: Rocuronium Bromide 10 MG/ML 5ML Injection IV ONE (09:26)
[2025-02-05] MEDS ORDERED: FentaNYL Citrate 50 MCG/ML 2 ML Injection ONE ×3 (09:26→11:03)
[2025-02-05] MEDS ORDERED: Dexamethasone Sod Phos 10 MG/ML 1ML VIAL ONE (09:26)
[2025-02-05] MEDS ORDERED: Sugammadex Sodium 200 MG/2ML SDV (100 MG/ML) ONE (09:59)
[2025-02-05] MEDS ORDERED: Ondansetron HCl 2 MG / ML 2ML Vial ONE (09:59)
[2025-02-05] MEDS ORDERED: FentaNYL Citrate 50 MCG/ML 2 ML Injection IV PRN (10:05)
[2025-02-05] MEDS ORDERED: Ondansetron HCl 2 MG / ML 2ML Vial IV PRN (10:05)
[2025-02-05] MEDS ORDERED: CeFAZolin Sodium 2,000 MG VIAL ONE (10:05)
[2025-02-05] MEDS ORDERED: Bupivacaine 0.5% HCl 5 MG/ML 30MLVIAL ONE (10:20)
[2025-02-05] MEDS ORDERED: HYDROmorphone HCl/Pf 1MG SYR ONE (11:11)
--- NOTE | 2025-02-05 14:45 | NUR ---
PT RETURNED FROM PACU 1130, OPENS EYES TO VERBAL. VSS, LONG PERIODS OF APNEA UP TO 20 SECONDS NOTED. SATTING 89-90% 2L. INCREASED OXYGEN TO 4L/NC, PLACED CONT PULSE OX- CONT MONITORING BY THIS RN UNTIL APNIC EPISODES IMPROVED. PLACED MALE PUREWICK. DRESSING TO R HIP INTACT, NO SHADOWING CURRENTLY. VSS. WILL CONT TO GRAHAM
--- NOTE | 2025-02-05 18:02 | NUR ---
SUMMARY- PT RESPONDS TO VERBAL, OCC NOD'S YES/NO, ESSENTIALLY NONVERBAL PER HX OF DEMENTIA AND CVA. S/P R HIP NAILING, DRESSING DCI WITH SHADOWING PROXIMAL END APPROX 1". CMS INTACT, ABLE TO WIGGLE TOES. SLEEPY POST OP, MEDICATED ONCE WITH DILAUDID 0.5MG WITH SUB RELEIF. PT ON CONT PULSE OX, INCREASED TO 4L INITIAL POST OP, AFTER PT MORE AWAKE, INSTRUCTED COUGH AND DEEP BREATH, LG AMOUNTS OF SPUTUM COUGHED UP, PT UNABLE TO CLEAR, RN ASSIST DEEP YANKAUER SUCTION. OXYGEN BROUGHT BACK DOWN TO 2L NC, SATTING 98%. NO VOID SINCE SURGERY, VOIDED THIS AM APPROX 1000, WILL BLADDER SCAN. TOOK IN BITES OF JELLO AND ICE CHIPS. DEPENDANT IN CARE, TURNED Q2. DEIDRA ESCALERA IN AND OUT T/O THE DAY. WILL REPOET TO NOC RN
--- NOTE | 2025-02-06 05:56 | NUR ---
SHIFT SUMMARY NOC. PT POD 1 FOR R HIP PINNING, PT'S AQUACEL IS C/D/I. PT MEDICATED FOR PAIN AT START OF SHIFT WITH REDUCED FLACC SCORE AFTER MEDS. PT BECAME MILDLY AGITATED LATER IN SHIFT SHAKING HIS HEAD "NO" AND WAVING HIS ARMS AT STAFF WHEN OFFERED PAIN MEDICATION. PT NOT ATTEMPTING TO GET OOB, BED ALARM SET FOR SAFETY. PT HAD AN INCONTINENT VOID. CALL LIGHT IN REACH.
[2025-02-06] MEDS ORDERED: Morphine Sulfate 20 MG/1ML 1 ML Oral Syringe PO PRN (07:55)
[2025-02-06 10:32] VITALS: BP 125/79
[2025-02-06 10:33] VITALS: BP 125/79
[2025-02-06 15:18] VITALS: BP 140/93
[2025-02-06 15:19] VITALS: BP 137/97
--- NOTE | 2025-02-06 18:18 | NUR ---
SHIFT SUMMARY THE SHIFT STARTED ROUGH w/ A CODE CANO BUT HAS BEEN APPROP SINCE. PAINFUL & FEARFUL w/ MOVEMENT. INCONT w/ ATTENDS ON. FAMILY ARRANGING HOME TO PREPARE FOR RETURN.
[2025-02-06 19:14] VITALS: BP 111/84
[2025-02-07 03:35] VITALS: BP 124/90
--- NOTE | 2025-02-07 06:53 | NUR ---
SHIFT SUMMARY NOC. PT POD 2 FOR R HIP PINNING. AQUACEL C/D/I. PT ALERT AND PLEASANT AT START OF SHIFT. WHEN ATTEMPTING INCONT CHANGE PT BECAME COMBATIVE, SWINGING, BITING, AND KICKING. TOOK 4 STAFF MEMBERS TO CHANGE PT. PT HAS HAD ELEVATED FLACC SCORE AT TIMES, MEDICATED PER EMAR X2 IN CHOCOLATE PUDDING. PT EATING AND DRINKING THIS SHIFT. PT MOSTLY NON VERBAL BUT ABLE TO SHAKE HEAD "NO" AND STATE "NO". PT NOT ATTEMPTING OOB, BED ALARM SET FOR SAFETY. CALL LIGHT IN REACH.
[2025-02-07 07:02] VITALS: BP 115/87
[2025-02-07] MEDS ORDERED: Morphine Sulfate 20 MG/1ML 1 ML Oral Syringe PO PRN (11:25)
[2025-02-07 15:22] VITALS: BP 117/76
--- NOTE | 2025-02-07 17:50 | NUR ---
SHIFT SUMMARY PT RESTING. APPEARS TO BE MORE RELAXED WITH ATIVAN/ROXANOL DOSING. CURRENTLY SLEEPING. WILL CONTINUE TO MONITOR.
[2025-02-07 19:20] VITALS: BP 141/95
[2025-02-08 04:57] VITALS: BP 111/69
--- NOTE | 2025-02-08 05:14 | NUR ---
ROTARY DRILL OPERATOR SUMMARY PT HAD A GOOD NIGHT. HAS BEEN COOPERATIVE WITH CARE. PAIN AND AGITATION HAVE BEEN WELL MANAGED WITH ROXANOL AND ATIVAN. REPOSITIONED SEVERAL TIMES THROUGH THE NIGHT AND ATTENDS CHANGED DUE TO INCONTINENCE. PT'S FAMILY IN AT START OF SHIFT AND HELPED PT EAT PIZZA. PT ATE SEVERAL SLICES AND DID WELL. VITALS STABLE, BED ALARM ON FOR SAFETY. WCTM.
[2025-02-08 07:12] VITALS: BP 155/97
--- NOTE | 2025-02-08 14:50 | NUR ---
DISCHARGED HOME VIA STRETCHER/EMS ENROUTE TO HOME HOSPICE.
== END 2025-02-08 14:51 | disposition hospice, home (50) | DRG 481 ==
LOC: ER 14:00 → SURS 19:54
PROVIDERS: Emergency Medicine; Nurse Practitioner Acute Care; Orthopaedic Surgery; ADMIT Student in an Organized Health Care Education/Training Program
PROC: 0QS634Z Reposition Right Upper Femur with Internal Fixation Device, Percutaneous Approach (ICD-10-PCS; principal; 2025-02-05 07:00)
DX: S72.091A Other fracture of head and neck of right femur, initial encounter for closed fracture (principal); I48.20 Chronic atrial fibrillation, unspecified; I50.22 Chronic systolic (congestive) heart failure; I11.0 Hypertensive heart disease with heart failure; I25.2 Old myocardial infarction; E87.6 Hypokalemia; I44.7 Left bundle-branch block, unspecified; Z51.5 Encounter for palliative care; F03.90 Unspecified dementia, unspecified severity, without behavioral disturbance, psychotic disturbance, mood disturbance, and anxiety; Z86.73 Personal history of transient ischemic attack (TIA), and cerebral infarction without residual deficits; Z98.890 Other specified postprocedural states; Z87.891 Personal history of nicotine dependence; Z88.1 Allergy status to other antibiotic agents; Z88.8 Allergy status to other drugs, medicaments and biological substances; Z79.01 Long term (current) use of anticoagulants; Z79.899 Other long term (current) drug therapy; W01.0XXA Fall on same level from slipping, tripping and stumbling without subsequent striking against object, initial encounter
CPT/HCPCS: 36415; 70450; 71045; 72125; 72192; 73502; 80048; 80053; 82607; 83735; 84439; 84443; 85025; 85027; 85610; 85730; 93005; 93010; 94760; 94762; 96374; 99285-25; A9270; C1713; C1769; J0690; J1100; J1171; J2405; J2704; J3010; J7030